=== PATIENT | male | born 1960 | race American Indian/Alaskan Native ===

== ENCOUNTER 2016-04-04 12:30 | Inpatient (IN) | payer OTHER ==
--- NOTE | 2016-04-04 12:56 | Emergency Department Report ---
Chief Complaint: Chest Pain Stated Complaint: CHEST PAIN/SOB/DIZZINESS Time Seen by Provider: 04/04/16 12:56 - HPI History of Present Illness: Patient here complaining of chest pain, shortness of breath and dizziness times one day. Patient reports diaphoretic with initial chest pain and pain is 10 out of 10 to the mid chest and feels tight. He has a history of diabetes and hypertension. Patient blood pressure is 86/57 and he said he took his blood pressure medication this morning. He said that his chest pain feels tight blood pressure. He said he has difficulty walking because he is out of breath. Reports that he has fever and chills yesterday. Has any coughing. - ROS Review of Systems: all Systems are negative unless stated in HPI above. - Exam Vital Signs: Vital Signs 04/04/16 12:43 Temperature 97.8 F Pulse Rate 55 L Respiratory 18 Rate Blood Pressure 86/57 O2 Sat by Pulse 97 Oximetry Physical Exam: General: This is a 55-year-old male well-nourished well-developed and appears to be in distress. CV: S1, S2. pulse of 55 and blood pressure is 86/57. Lungs: clear Auscultated bilaterally, no rhonchi wheezes or rales. MSE screening note: Focused history and physical exam performed. Due to findings the following was ordered:see mdm ED Medical Decision Making - Medical Decision Making Medical decision making: Patient seen by provider in triage area. Appropriate protocol activated and patient to main ED to be seen by physician. ED Disposition for MSE Condition: Stable
[2016-04-04 13:23] LABS: Basophils % (Auto) 0.2 % (0.0-1.8); Eosinophils % (Auto) 0.5 % (0.0-4.3); Hemoglobin 14.7 gm/dl (11.8-15.2); Mean Corpuscular HGB Conc 33 % (32-34); Mean Corpuscular Hemoglobin 29 pg (28-32); Mean Corpuscular Volume 89 fl (84-94); Platelet Count 183 K/mm3 (140-440); Red Blood Count 5.03 M/mm3 (3.65-5.03); Red Cell Distribution Width 14.3 % (13.2-15.2); White Blood Count 12.3 K/mm3 (4.5-11.0)
[2016-04-04] MEDS ORDERED: NACL 0.9% 1000 ML 1,000 ML IV ONE (13:27)
[2016-04-04] MEDS ORDERED: NACL 0.9% 1000 ML 2,000 ML IV ONE (13:27)
[2016-04-04] MEDS ORDERED: TORADOL IV ONE (13:27)
--- NOTE | 2016-04-04 13:38 | XRay Report ---
PA CHEST: PA view of the chest demonstrates a normal mediastinal and cardiac contour with clear lungs and normal bony and soft tissue structures. IMPRESSION: Normal PA chest.
[2016-04-04 13:44] LABS: BUN/Creatinine Ratio 12.66; Calcium 8.8 mg/dL (8.4-10.2); Chloride 104.4 mmol/L (98-107); Potassium 3.8 mmol/L (3.6-5.0)
[2016-04-04] MEDS ORDERED: MORPHINE IV ONE (13:53)
[2016-04-04] MEDS ORDERED: BABY ASPIRIN PO ONE (13:53)
[2016-04-04] MEDS ORDERED: ZOFRAN IV ONE (13:53)
--- NOTE | 2016-04-04 13:54 | Emergency Department Report ---
HPI - General Chief Complaint: Chest Pain Time Seen by Provider: 04/04/16 12:55 - HPI HPI: The patient is a 55-year-old male with a history of hypertension, who presents for evaluation of chest pain. The patient reports chest pain since 3 PM yesterday evening, on and off, worsened and constant since this morning, midsternal in location, pressure-like in quality, moderate to severe, and improved with deep inspirations. hemoptysis, unilateral leg swelling, recent immobilization, history of DVT or PE, recent cancer, history of familial coagulation disorder. ED Review of Systems ROS: Stated complaint: CHEST PAIN/SOB/DIZZINESS Other details as noted in HPI Constitutional: denies: fever ENT: denies: throat or neck pain Respiratory: denies: cough, shortness of breath Cardiovascular: reports chest pain Endocrine: denies unexplained weight loss or gain Gastrointestinal: denies: abdominal pain, nausea Genitourinary: denies: dysuria Musculoskeletal: denies: leg swelling Skin: denies: rash Neurological: denies: headache Hematological/Lymphatic: denies: easy bleeding or easy bruising Psych: denies sadness or hopelessness Physical Exam - Physical Exam Vital Signs: Vital Signs 04/04/16 04/04/16 12:43 13:02 Temperature 97.8 F Pulse Rate 55 L Respiratory 18 Rate Blood Pressure 86/57 94/50 O2 Sat by Pulse 97 100 Oximetry Physical Exam: General: well-nourished, well-developed, no acute distress Head: Normocephalic, atraumatic Eyes: normal sclera ENT: Mucous membranes are pink and moist Neck: trachea midline, neck supple, No neck stiffness, no cervical adenopathy Respiratory: Breath sounds equal bilaterally, no wheezing, rales, or rhonchi Cardio: S1 and S2 present, no murmurs, rubs, gallops, capillary refill is brisk Abdomen: Normoactive bowel sounds, soft abdomen, no rigidity, no guarding or rebound tenderness Chest WALL/Back: No tenderness to palpation of the chest wall, no CVA tenderness with percussion Musc: No pitting edema Skin: No rash Neuro: no facial drooping, normal speech Psych: Normal affect ED Course Vital Signs 04/04/16 04/04/16 12:43 13:02 Temperature 97.8 F Pulse Rate 55 L Respiratory 18 Rate Blood Pressure 86/57 94/50 O2 Sat by Pulse 97 100 Oximetry ED Medical Decision Making - Lab Data Result diagrams: 04/04/16 13:12 04/04/16 13:12 - Medical Decision Making The patient was seen and examined by myself. The patient is placed on a apprentice architect and continuous pulse ox. On initial evaluation, the patient was found to be in no distress. EKG was negative for findings suggestive of acute cardiac infarct. The patient is given an aspirin and a nitroglycerin tablet. Labs and imaging are obtained. Chest x-ray is negative for pneumothorax, focal consolidation, pulmonary vascular congestion, pleural effusion, or other obvious acute cardiopulmonary disease process. Lab results revealed elevated troponin level of 2.2, and elevated BNP of >300, and otherwise labs were non- revealing. The patient is given IV morphine for his pain. A heparin bolus and infusion are ordered for treatment of the patient's NSTEMI. CT angiogram scan of the chest is negative for pulmonary embolism. The patient was reevaluated and reported that their symptoms were improved. As the patient has NSTEMI, the patient will be admitted for close cardiopulmonary monitoring, continued heparin infusion, and potential cardiac cath by cardiology. The on- call hospitalist service was contacted. They agreed to admit the patient for further treatment and close monitoring. The ED admit order was placed. The patient was admitted in guarded condition. Critical care attestation.: If time is entered above; I have spent that time in minutes in the direct care of this critically ill patient, excluding procedure time. ED Disposition Clinical Impression: NSTEMI, initial episode of care, Acute chest pain, Dehydration Disposition: OP ADMITTED IP TO THIS HOSP Is pt being admited?: Yes Does the pt Need Aspirin: Yes Condition: Serious Instructions: Chest Pain (ED) Referrals: PRIMARY CARE, [Primary Care Provider] - 3-5 Days Time of Disposition: 13:43
[2016-04-04] MEDS ORDERED: HEPARIN 10,000 UNITS/10 ML IV ONE (13:55)
[2016-04-04] MEDS ORDERED: NACL ONE (13:59)
[2016-04-04] MEDS ORDERED: HEPARIN/ 0.45% NACL-25,000 UNIT/500 ML 500 ML IV SCH (14:00)
[2016-04-04 14:31] LABS: INR 1.01 (0.87-1.13)
[2016-04-04 14:32] LABS: Partial Thromboplastin Time 27.4 Sec. (24.2-36.6)
--- NOTE | 2016-04-04 15:15 | Cat Scan Report ---
CT angiography of the chest with 3-D reconstructed images. Findings: There is no evidence of pulmonary emboli. The Lungs are clear. There is no pleural fluid. The the mediastinum and hilar regions are normal. No axillary abnormalities are seen. The heart is mildly enlarged. Impression: No evidence of pulmonary emboli.
--- NOTE | 2016-04-04 15:17 | Admit Criteria Form ---
Admission Criteria Documentation: MYOCARDIAL INFARCTION Clinical Indications for Admission to Inpatient Care (Place 'X' for any and all applicable criteria): Admission is indicated for ANY ONE of the following (1)(2)(3)(4): [X ]I. Acute TX [ ]II. Contraindications and/or Inappropriate clinical situations for Observational Care in patients with Myocardial Infarction, when ANY ONE of the following is required: [ ]a) Patient with High risk of cardiac embolism (e.g, patients with previous cardiac embolism, LVEF < 40%, age >75 and patients with prosthetic valve) 18 [ ]b) Patient with Moderate risk including DM patient, CAD and patient aged 65-75 18 [ ]c) Patient with any change in cardiac biomarker especially troponin should be managed as high risk in an inpatient setting 19 [ ]d) Physician judgement irrespective of ECG and other diagnostic findings 20 [ ]III.General contraindications and/or Inappropriate clinical situations for Observational Care in patients with Myocardial Infarction, when ANY ONE of the following is required: [ ]a) Prediction of prolongation of LOS based on ANY ONE of the following may be considered as a contraindication for observational care 2, 3, 4, 5, 6, 7, 8, 9, 10, 11 [ ]i) Age > 65 yrs. [ ]ii) Patient arriving by ambulance [ ]iii) Patient with high acuity [ ]iv) Patient requiring vital sign monitoring [ ]v) Patient on IV medication [ ]b) Systolic blood pressures 180mmHg 3,12 [ ]c) Patient with altered mental status including delirium and other alteration of consciousness, (3) [ ]d) Patient whose discharge disposition will be to a care home home or rehabilitation home should not be managed in Emergency Department Observation Unit. CMS rule requires 3 days hospital stay before such placement. 3,13 [ ]e) Patient with failure to thrive due to broad array of etiologies 3 ,16,17 [ ]f) Inability to ambulate 3,14 Extended stay beyond goal length of stay may be needed for (1)(18)(20)(24)(25): [ ]a) Hemodynamic instability, persisting symptoms after intensive medical management, or recurring severe, prolonged symptoms [ ]b) Intravascular procedural complications such as acute vessel closure, stent thrombosis, stent malposition, or vessel dissection (26)(27)(28) [ ]c) Extravascular procedural complications such as retroperitoneal hematoma , pericardial effusion, or cardiac tamponade [ ]d) Entry site complications causing bleeding, hematoma or distal ischemia and requiring ongoing monitoring, surgical repair or surgical thrombectomy(29) [ ]e) Dangerous arrhythmia [ ]f) Complicated percutaneous coronary intervention (e.g., unsuccessful percutaneous coronary intervention or percutaneous coronary intervention of non- round [place] vessel) [ ]g) Urgent or emergent surgery for complications of TX (e.g., ventricular rupture, valvular insufficiency) [ ]h) Surgical revascularization via coronary artery bypass graft [ ]i) Heart failure (e.g., pulmonary edema) [ ]j) Unstable pulmonary comorbidities, including COPD or pneumonia (31) [ ]k) Acute renal failure The original [employer] content created by [employer] has been revised. The portions of the content which have been revised are identified through the use of italic text or in bold, and [employer] has neither reviewed nor approved the modified material. All other unmodified content is copyright [facility] Please see references footnoted in the original [employer] edition 2016 Admission Criteria Met: Yes
--- NOTE | 2016-04-04 15:20 | Consultation ---
History of Present Illness Consult date: 04/04/16 Requesting physician: LAUREN ROSE Consult reason: chest pain History of present illness: The patient is a 55 year old male who presented with complaints of substernal chest pain that began yesterday afternoon while he was having sex. He states the pain has been constant and describes it as "tightness" and "pressure." Associated with shortness of breath, dizziness and diaphoresis. No nausea or vomiting. First troponin is 2.280. Past History Past Medical History: diabetes, hypertension, hyperlipidemia Past Surgical History: No surgical history Social history: , smoking. denies: alcohol abuse, prescription drug abuse, IV drug use Family history: CAD (brother ) Medications and Allergies Allergies Allergy/AdvReac Type Severity Reaction Status Date / Time No Known Allergies Allergy Unverified 04/04/16 12:57 Active Meds: Active Medications Sodium Chloride (Nacl 0.9% 1000 Ml) 2,000 mls @ 999 mls/hr IV ONCE ONE Stop: 04/04/16 15:27 Heparin Sodium/Sodium Chloride (Heparin/ 0.45% Nacl-25,000 Unit/500 Ml) 500 mls @ 20 mls/hr IV TITRATE EDUARDO; 1,000 UNITS/HR PRN Reason: Protocol Review of Systems Constitutional: no fever, no chills Ears, nose, mouth and throat: no nasal congestion, no nasal discharge Cardiovascular: chest pain, shortness of breath Respiratory: no cough, no congestion, no wheezing Gastrointestinal: no abdominal pain, no nausea, no vomiting, no diarrhea Genitourinary Male: no dysuria, no hematuria Musculoskeletal: no neck stiffness, no neck pain, no myalgias Integumentary: no rash, no pruritis Neurological: no parathesias, no numbness, no tingling, no headaches Endocrine: no cold intolerance, no heat intolerance Hematologic/Lymphatic: no easy bruising, no easy bleeding Allergic/Immunologic: no urticaria, no wheezing Physical Examination Vital Signs Temp Pulse Resp BP Pulse Ox 97.8 F 55 L 18 86/57 97 04/04/16 12:43 04/04/16 12:43 04/04/16 12:43 04/04/16 12:43 04/04/16 12:43 General appearance: no acute distress, obese HEENT: Positive: PERRL, Normocephaly, Mucus Membranes Moist Neck: Positive: neck supple, trachea midline Cardiac: Positive: Reg Rate and Rhythm, S1/S2 Lungs: Positive: clear to auscultation Neuro: Positive: Grossly Intact Abdomen: Positive: Soft, Active Bowel Sounds. Negative: Tender Skin: Positive: Clear. Negative: Rash Extremities: Present: normal. Absent: edema Results 04/04/16 15:28 04/04/16 13:12 Coagulation 04/04/16 Range/Units Unknown PT 13.2 (12.2-14.9) Sec. INR 1.01 (0.87-1.13) APTT 27.4 (24.2-36.6) Sec. Lipids 04/04/16 Range/Units 13:12 Triglycerides 109 (2-149) mg/dL Cholesterol 144 (50-199) mg/dL HDL Cholesterol 40 (40-59) mg/dL Cholesterol/HDL Ratio 3.60 % CBC 04/04/16 Range/Units 13:12 WBC 12.3 H (4.5-11.0) K/mm3 RBC 5.03 (3.65-5.03) M/mm3 Hgb 14.7 (11.8-15.2) gm/dl Hct 45.0 (35.5-45.6) % Plt Count 183 (140-440) K/mm3 Lymph # 2.7 (1.2-5.4) K/mm3 [place] # 0.9 H (0.0-0.8) K/mm3 Eos # 0.1 (0.0-0.4) K/mm3 Baso # 0.0 (0.0-0.1) K/mm3 Comprehensive Metabolic Panel 04/04/16 Range/Units 13:12 Sodium 142 (137-145) mmol/L Potassium 3.8 (3.6-5.0) mmol/L Chloride 104.4 (98-107) mmol/L Carbon Dioxide 23 (22-30) mmol/L BUN 19 (9-20) mg/dL Creatinine 1.5 (0.8-1.5) mg/dL Glucose 105 H (75-100) mg/dL Calcium 8.8 (8.4-10.2) mg/dL - Imaging and Cardiology Echo: pending EKG: image reviewed EKG interpretations - Telemetry EKG Rhythm: Sinus Rhythm - EKG Sinus rhythms and dysrhythmias: sinus bradycardia Chamber hypertrophy or enlargement: left ventricular hypertro Assessment and Plan Given persistent chest pain, will proceed with left heart cath this evening. Initiate aggrastat gtt. Obtain echocardiogram. - Patient Problems (1) NSTEMI (non-ST elevated myocardial infarction) Current Visit: Yes Status: Acute (2) Bradycardia Current Visit: Yes Status: Acute (3) Hypertension Current Visit: Yes Status: Chronic (4) Diabetes Current Visit: Yes Status: Chronic (5) Tobacco abuse Current Visit: Yes Status: Chronic
[2016-04-04 15:43] LABS: Hematocrit 42.5 % (35.5-45.6); Hemoglobin 13.8 gm/dl (11.8-15.2)
--- NOTE | 2016-04-04 16:01 | Event Note ---
Date: 04/04/16 See H/p in reports NSTEMI
[2016-04-04] MEDS ORDERED: ALUM-MAG HYDROX-SIMETH 200-200-20MG/5ML PO PRN (16:04)
[2016-04-04] MEDS ORDERED: MILK OF MAGNESIA PO PRN ×2 (16:04)
[2016-04-04] MEDS ORDERED: DULCOLAX PR PRN ×2 (16:04)
[2016-04-04] MEDS ORDERED: AMBIEN PO PRN (16:04)
[2016-04-04] MEDS ORDERED: XANAX PO PRN (16:04)
[2016-04-04] MEDS ORDERED: TYLENOL PO PRN ×2 (16:04→20:05)
[2016-04-04] MEDS ORDERED: PERCOCET 5/325 PO PRN ×2 (16:04)
[2016-04-04] MEDS ORDERED: ZOFRAN IV PRN (16:04)
[2016-04-04 16:33] LABS: Creatine Kinase MB 125.6 ng/mL (0.0-4.0)
[2016-04-04] MEDS ORDERED: AGGRASTAT (BOLUS) IV ONE (16:53)
[2016-04-04] MEDS ORDERED: NACL 0.9% 1000 ML 1,000 ML ONE ×2 (17:37→18:23)
[2016-04-04] MEDS: AGGRASTAT DRIP IV SCH (18:12)
[2016-04-04] MEDS ORDERED: CALAN ONE (18:15)
[2016-04-04] MEDS ORDERED: HEPARIN/NS 5000 UNIT/500ML(CATH LAB) 1,000 ML IR ONE (18:15)
[2016-04-04] MEDS ORDERED: NITROGLYCERIN SYRINGE 0 ML ONE (18:15)
[2016-04-04] MEDS ORDERED: HEPARIN 10,000 UNITS/10 ML ONE (18:15)
[2016-04-04] MEDS ORDERED: XYLOCAINE 2% INFILTRATI ONE (18:15)
[2016-04-04] MEDS ORDERED: VERSED ONE (18:16)
[2016-04-04] MEDS ORDERED: SUBLIMAZE ONE (18:17)
[2016-04-04] MEDS ORDERED: HEPARIN/NS 5000 UNIT/500ML(CATH LAB) 500 ML IR ONE (18:53)
[2016-04-04] MEDS ORDERED: NACL 0.9% 500 ML 500 ML IV SCH (19:00)
[2016-04-04] MEDS ORDERED: INTROPIN DRIP 800 MG/D5W 250 ML 250 ML IV ONE (19:35)
[2016-04-04] MEDS ORDERED: EFFIENT PO ONE (19:44)
[2016-04-04] MEDS ORDERED: ALUM-MAG HYDROX-SIMETH 200-200-20MG/5ML ONE (19:52)
[2016-04-04] MEDS ORDERED: NORCO 5/325 PO PRN (20:05)
[2016-04-04] MEDS ORDERED: INTROPIN DRIP 800 MG/D5W 250 ML 250 ML IV SCH (21:00)
[2016-04-04] MEDS: DILAUDID IV PRN (21:26)
[2016-04-04 23:01] LABS: Creatine Kinase MB 141.9 ng/mL (0.0-4.0)
[2016-04-04] MEDS ORDERED: NON-FORMULARY (Metformin Hcl [Glucophage] 1,000 MG) PO SCH (23:30)
--- NOTE | 2016-04-05 02:09 | Cardiac Catherization Report ---
CARDIAC CATHETERIZATION AND CORONARY INTERVENTION CLINICAL INFORMATION: The patient a 55-year-old -[place] gentleman with history of hypertension of longstanding duration. He had chest pains for the last 24 hours, presented to the Emergency Room with increasing chest pain and was noted to have elevated troponin, continues to have persistent chest pain with a low blood pressure and low heart rate. Systolic blood pressure around 90-100 mmHg systolic blood pressure with persistent chest pain. The patient was noted to have elevated total CK and MB consistent with acute myocardial injury. However, EKG did not show any ST elevations. Considering persistent chest, even though the patient is having pain for more than 24 hours, it was decided to take him to the catheterization laboratory on an urgent basis for further treatment. The patient was started on IV Aggrastat in addition to aspirin. The patient's blood pressure is low 80-100 systolic. Also, heart rate in 60s-70s, sometimes in junctional rhythm and sinus bradycardia. No previous cardiac history. DESCRIPTION OF PROCEDURE: The patient was brought to the catheterization laboratory and right groin and right wrist area thoroughly cleansed with Betadine solution and sterilely drapes were applied. Local anesthesia was achieved using 2% Xylocaine. The patient was sedated with IV Versed. The patient received 8 mg of morphine in the Emergency Room. Subsequently, right radial arterial puncture was made using 21-gauge arterial puncture needle. Subsequently, a 6-Qatari sheath was introduced. Using multipurpose catheter, coronary angiography was performed. Angiograms of the left coronary artery and right coronary artery were obtained along with left ventriculogram done in MARJORIE and CRUZ projection using hand injection. Subsequently, procedure was converted into interventional procedure. Following findings were noted. HEMODYNAMICS: 1. Opening aortic pressure 116/74, left ventricular pressure 118/30. No gradient across the aortic valve. Estimated ejection fraction 50%. Left ventricular size is upper limits of normal with contractility lower limits of normal. No regional wall emotion abnormalities were noted. Mitral regurgitation could not be evaluated because of limited amount of dye. 2. Right coronary artery, dominant vessel, is 100% occluded in the distal part. PDA is arising proximal to this occlusion somewhat superiorly. PDA itself without significant disease. However, distal RCA and LV branch are not visualized, that is 100% occluded distal RCA. Proximal and mid RCA showed only mild disease. 3. Left coronary artery. Left main without significant disease. The LAD and its branches are without significant disease. Circumflex artery showed 40-50% smooth lesion in the distal segment; however, marginal branches without significant disease. Collaterals none. FINAL IMPRESSION: A 100% occluded distal RCA which is a dominant vessel is the culprit vessel. Overall, left ventricular function is lower limits of normal. Left coronary system showed only nonobstructive disease. At this time, plan is to proceed with intervention of the distal RCA. CORONARY INTERVENTION OF THE DISTAL RCA: The patient had indwelling 6-Qatari sheath in the right wrist area. The patient was given extra dose of heparin 5000 units. A 6-Qatari JR4 guiding catheter was advanced and engaged the right coronary artery. An 0.014 inch [place] XT guidewire was advanced in distal RCA without much difficulty. Subsequently, 100% occluded distal RCA was noted and 2.5 x 20 mm Trek balloon was advanced to the distal RCA and inflated to 10 atmospheres for 1 minute x 2. However, still there is quite a bit of clot and KATHARINE 1 flow was noted. Subsequently, 6-Qatari [place] catheter was used to extract the thrombus in the RCA, quite a large amount of thrombus was extracted and KATHARINE 3 flow was noted in the RCA to the distal LV branches. However, there was residual long stenosis. A 2.5 x 30 mm Resolute Integrity stent was inserted, inflated to normal pressure of 9 atmospheres with good result. No proximal or distal dissection noted. KATHARINE 3 flow was noted. LV branches are filling well. The patient was chest pain free. At the end of the procedure, the patient's systolic blood pressure was still 80-90 mmHg. Also, bradycardic. Considering the above, the patient was started on dopamine with good response with systolic blood pressure up to 140 mmHg. The patient remained in sinus rhythm. The patient was on Aggrastat. We will continue the same. Received 60 mg of prasugrel and at this time, beta blockers are on hold because of the low blood pressure and bradycardia, and also because of low blood pressure, YAMILKA inhibitors are not given. We will resume his antihypertensive medications which probably would include beta blockers and YAMILKA inhibitor in the morning once he is hemodynamically stabilized. At this time, the patient's blood pressure is low with bradycardia. The patient is chest pain free. Rhythm has been stable even though he was in transient junctional rhythm during the procedure. Findings were explained to the patient. FINAL IMPRESSION: Uncomplicated drug-eluting stent placement after the balloon angioplasty and catheter thrombectomy of the distal RCA with good result. Lesion was reduced from 100% to 0% and KATHARINE 3 flow was noted post-procedure and preprocedure. KATHARINE flow was zero. No complications of dissection or perforation noted. Left coronary system showed only 40% smooth lesion in the distal circumflex. Otherwise, rest of the left circumflex without significant disease. Considering the above, the patient will be continued on medical therapy. The patient's end diastolic pressure was elevated up to 13 mmHg. JOB# [id number] SHIRA/LUIS
[2016-04-05 04:34] LABS: Basophils % (Auto) 0.4 % (0.0-1.8); Eosinophils % (Auto) 0.2 % (0.0-4.3); Hematocrit 42.1 % (35.5-45.6); Hemoglobin 14.2 gm/dl (11.8-15.2); Mean Corpuscular HGB Conc 34 % (32-34); Mean Corpuscular Hemoglobin 30 pg (28-32); Mean Corpuscular Volume 90 fl (84-94); Platelet Count 167 K/mm3 (140-440); Red Blood Count 4.68 M/mm3 (3.65-5.03); Red Cell Distribution Width 13.9 % (13.2-15.2); White Blood Count 10.1 K/mm3 (4.5-11.0)
[2016-04-05 04:55] LABS: Creatine Kinase MB 98.7 ng/mL (0.0-4.0)
[2016-04-05 04:56] LABS: Alanine Aminotransferase 38 units/L (7-56); Albumin 3.6 g/dL (3.9-5); Albumin/Globulin Ratio 1.2 %; Alkaline Phosphatase 47 units/L (35-129); BUN/Creatinine Ratio 12.72; Bilirubin,Total 0.8 mg/dL (0.1-1.2); Blood Urea Nitrogen 14 mg/dL (9-20); Calcium 8.1 mg/dL (8.4-10.2); Carbon Dioxide 20 mmol/L (22-30); Chloride 103.2 mmol/L (98-107); Creatine Kinase 1525 units/L (55-170); Glucose 112 mg/dL (75-100); Potassium 3.8 mmol/L (3.6-5.0); Sodium 138 mmol/L (137-145); Total Protein 6.7 g/dL (6.3-8.2)
[2016-04-05 04:58] LABS: Anion Gap 19 mmol/L
[2016-04-05] MEDS: AGGRASTAT DRIP IV SCH (05:13)
--- NOTE | 2016-04-05 07:32 | History and Physical Report ---
CHIEF COMPLAINT: Left-sided chest pain. HISTORY OF PRESENT ILLNESS: A 55-year-old male comes in with substernal chest pain and left-sided chest pain while he was having apparently sex. He says the pain has been constant and describes it as a tightness and pressure associated with shortness of breath, dizziness and diaphoresis. No palpitations. No vomiting. PAST MEDICAL HISTORY: Significant for diabetes, hypertension, and hyperlipidemia. No surgical history. CURRENT MEDICATIONS: Metformin 1000 mg twice a day, valsartan 160 mg and amlodipine 10 mg daily. ALLERGIES: None. PAST SURGICAL HISTORY: No surgical history. SOCIAL HISTORY: . Smokes about half pack a day. No alcohol abuse, no prescription drug abuse. FAMILY HISTORY: Coronary artery disease. REVIEW OF SYSTEMS: Significant for substernal chest pain and left-sided chest pain. No radiation. Otherwise, review of systems is essentially negative. PHYSICAL EXAMINATION: GENERAL: Middle aged male, cooperative during examination and in no distress. Well developed, well nourished. VITAL SIGNS: Blood pressure is 97.8, pulse is 55, respirations 18, blood pressure 86/57. HEENT: Unremarkable. Pupils are equal and reactive. NECK: Supple, no lymphadenopathy, no thyromegaly. LUNGS: Clear to auscultation and percussion. Good air entry. CARDIOVASCULAR: S1, S2 heard. No gallop, no murmur, no rub. Apical impulse in left fifth intercostal space and midclavicular line. ABDOMEN: Soft and benign. No hepatosplenomegaly. No guarding, no rigidity. Hernial orifices are normal. EXTREMITIES: Good pedal pulses. No pedal edema. CENTRAL NERVOUS SYSTEM: Alert and oriented x 4, nonfocal exam. SKIN: Normal. LABORATORY DATA: White count is 12,300, H and H are 13.8 and 42.5, and platelet count is 161,000. Protime is 13.2, INR is 1.01 and PTT is 27.4. Heparin is less than 0.010. Sodium is 142, potassium is 3.8, chloride is 104, BUN and creatinine are 19 and 1.5, glucose is 105. A1c is 6.4. Total creatine kinase is 1314 and CK-MB is 125.6. Relative index is 9.5. Troponin T is 2.150. Second CK is 1648 and CK-MB is 141 and CK-MB relative index is 8.6. Troponin is 8.1. Lipid profile was normal. EKG shows sinus bradycardia, left ventricular hypertrophy, no elevated ST-T waves. ASSESSMENT AND PLAN: 1. Non-ST elevated myocardial infarction. The patient will be taken for left heart catheterization and stent placement. The patient was started on IV heparin. 2. Hypertension. The patient is restarted on amlodipine 10 mg daily and valsartan 160 mg daily. 3. Type 2 diabetes. Continue metformin 1000 mg twice a day and coverage. 4. Nicotine abuse, Nicoderm patch ordered. 5. Sinus bradycardia, observe for the time being. 6. Deep venous thrombosis prophylaxis with Lovenox 40 mg subcutaneous daily. [facility]# [id number] EFRAIN/LUIS LAO
[2016-04-05] MEDS ORDERED: GLUCOPHAGE PO SCH (08:00)
--- NOTE | 2016-04-05 08:27 | Progress Note ---
Assessment and Plan Will hold off on initiation of beta saurabh and ACEI due to hypotension. Patient encouraged to ambulate. Likely d/c home in am. Follow up in the office with Dr. Kaur next week. - Patient Problems (1) NSTEMI (non-ST elevated myocardial infarction) Current Visit: Yes Status: Acute (2) S/P PTCA (percutaneous transluminal coronary angioplasty) Current Visit: Yes Status: Acute (3) CAD (coronary artery disease) Current Visit: Yes Status: Acute (4) Hypertension Current Visit: Yes Status: Chronic (5) Diabetes Current Visit: Yes Status: Chronic (6) Tobacco abuse Current Visit: Yes Status: Chronic Subjective Date of service: 04/05/16 Principal diagnosis: NSTEMI Interval history: The patient is resting in bed. No chest pain. Sinus rhythm on the monitor. Objective Last Vital Signs Temp 99.0 F 04/05/16 07:46 Pulse 91 H 04/04/16 22:00 Resp 20 04/05/16 04:00 BP 86/54 04/04/16 17:30 Pulse Ox 99 04/05/16 09:07 - Physical Examination General: No Apparent Distress HEENT: Positive: PERRL, Normocephaly, Mucus Membranes Moist Neck: Positive: neck supple, trachea midline Cardiac: Positive: Reg Rate and Rhythm, S1/S2 Lungs: Positive: clear to auscultation Neuro: Positive: Grossly Intact Abdomen: Positive: Soft, Active Bowel Sounds. Negative: Tender Skin: Positive: Clear. Negative: Rash Incision: Cardiac Cath Site (right radial-no hematoma) Extremities: Present: normal. Absent: edema - Labs and Meds Cardiac Enzymes 04/04/16 04/05/16 Range/Units 22:06 04:21 AST 175 H (5-40) units/L CK-MB (CK-2) 141.9 H 98.7 H (0.0-4.0) ng/mL Coagulation 04/04/16 Range/Units Unknown PT 13.2 (12.2-14.9) Sec. INR 1.01 (0.87-1.13) APTT 27.4 (24.2-36.6) Sec. CBC 04/05/16 Range/Units 04:21 WBC 10.1 (4.5-11.0) K/mm3 RBC 4.68 (3.65-5.03) M/mm3 Hgb 14.2 (11.8-15.2) gm/dl Hct 42.1 (35.5-45.6) % Plt Count 167 (140-440) K/mm3 Lymph # 2.2 (1.2-5.4) K/mm3 [facility] # 1.1 H (0.0-0.8) K/mm3 Eos # 0.0 (0.0-0.4) K/mm3 Baso # 0.0 (0.0-0.1) K/mm3 Comprehensive Metabolic Panel 04/05/16 Range/Units 04:21 Sodium 138 (137-145) mmol/L Potassium 3.8 (3.6-5.0) mmol/L Chloride 103.2 (98-107) mmol/L Carbon Dioxide 20 L (22-30) mmol/L BUN 14 (9-20) mg/dL Creatinine 1.1 (0.8-1.5) mg/dL Glucose 112 H (75-100) mg/dL Calcium 8.1 L (8.4-10.2) mg/dL AST 175 H (5-40) units/L ALT 38 (7-56) units/L Alkaline Phosphatase 47 (35-129) units/L Total Protein 6.7 (6.3-8.2) g/dL Albumin 3.6 L (3.9-5) g/dL - Imaging and Cardiology EKG: image reviewed Echo: pending - Telemetry EKG Rhythm: Sinus Rhythm - EKG Sinus rhythms and dysrhythmias: sinus bradycardia Chamber hypertrophy or enlargement: left ventricular hypertro
--- NOTE | 2016-04-05 09:22 | XRay Report ---
PORTABLE CHEST: INDICATION: Post PCI. COMPARISON: Yesterday. FINDINGS: Portable, frontal chest radiograph again suggests mild cardiomegaly and slight aortic knob calcifications. Minimal fluid or thickening along the right minor fissure without significant pleural effusions or overt CHF. EKG leads. Stable bones. CONCLUSION: No significant interval change with mild cardiomegaly. Please correlate. Thank you for the opportunity to participate in this patient's care.
[2016-04-05] MEDS ORDERED: NORVASC PO SCH (10:00)
[2016-04-05] MEDS ORDERED: AMLODIPINE PO SCH (10:00)
[2016-04-05] MEDS ORDERED: VALSARTAN PO SCH (10:00)
[2016-04-05] MEDS ORDERED: DIOVAN PO SCH (10:00)
[2016-04-05] MEDS ORDERED: NON-FORMULARY (Sitagliptin Phosphate [Januvia] 100 MG) PO SCH (10:00)
[2016-04-05] MEDS ORDERED: ASPIRIN PO SCH (10:00)
[2016-04-05] MEDS: HABITROL TD SCH (10:05)
[2016-04-05] MEDS: TRADJENTA PO SCH (10:05)
[2016-04-05] MEDS: ECOTRIN PO SCH (10:05)
--- NOTE | 2016-04-05 10:46 | Echocardiography Report ---
Transthoracic Echocardiogram Indication: Nstemi BP: 94/50 Conclusions *Global left ventricular systolic function is at the lower limits of normal. *The estimated ejection fraction is 45-50%. *The basal inferolateral, and mid inferolateral wall segments are hypokinetic. *There is no evidence of aortic regurgitation. *There is mild mitral regurgitation. *There is mild tricuspid regurgitation. *The right ventricular systolic pressure is calculated at 27 mmHg. *There is no evidence of pulmonic regurgitation. *The right ventricular global systolic function is normal. Findings Left Ventricle: The left ventricular chamber size is normal. Moderate concentric left ventricular hypertrophy is observed. Global left ventricular systolic function is at the lower limits of normal. The estimated ejection fraction is 45-50%. Normal left ventricular diastolic filling is observed. The basal inferolateral, and mid inferolateral wall segments are hypokinetic. Left Atrium: The left atrium is normal in size with no visual thrombus identified. Right Ventricle: The right ventricular cavity size is normal. The right ventricular global systolic function is normal. Right Atrium: The right atrium appears normal. The interatrial septum appears normal. Aortic Valve: The aortic valve leaflets are mildly thickened. There is no evidence of aortic regurgitation. There is no evidence of aortic stenosis. Mitral Valve: The mitral valve leaflets appear normal. There is mild mitral regurgitation. There is no evidence of mitral stenosis. Tricuspid Valve: The tricuspid valve leaflets are normal. There is mild tricuspid regurgitation. The right ventricular systolic pressure is calculated at 27 mmHg. There is no tricuspid stenosis. Pulmonic Valve: The pulmonic valve appears normal. There is no evidence of pulmonic regurgitation. There is no pulmonic stenosis. Pericardium: There is no pericardial effusion. Aorta: There is no dilatation of the ascending aorta. Venous: The inferior vena cava appears normal in size. There is no change in the dimension of the inferior vena cava with respiration consistent with markedly increased right atrial pressure. Measurements Chambers MM Name Value Normal Range Ao root diameter (MM) 3 cm (2 - 3.7) LA dimension (AP) MM 4.7 cm (1.9 - 4) LA:Ao ratio (MM) 1.57 ratio - AV cusp separation (MM) 1.4 cm (1.5 - 2.6) Chambers 2D Name Value Normal Range RVIDd (AP) 2D 2.86 cm (0.9 - 2.6) IVSd (2D) 1.57 cm (0.6 - 1.1) LVPWd (2D) 1.6 cm (0.6 - 1.1) IVS:LVPW ratio (2D) 0.98 ratio - LVIDd (2D) 5.11 cm (3.7 - 5.6) LVIDs (2D) 3.96 cm (2 - 3.8) LV FS (Teichholz) (2D) 22.5 % - LV FS (cube) (2D) 22.5 % - EF Teichholz (2D) 44.9 % - LA dimension (AP) 2D 4.6 cm (1.9 - 4) Volumes/Mass Name Value Normal Range LA ESV SP 4CH (MOD) 72 ml - LA ESV SP 2CH (MOD) 56 ml - LA ESV BP (MOD) 71 ml - LA ESV BP (MOD) index 29.1 ml/m2 - LV EDV SP 4CH (MOD) 87 ml - LV ESV SP 4CH (MOD) 27 ml - EF SP 4CH (MOD) 69 % - LV EDV SP 2CH (MOD) 50 ml - LV ESV SP 2CH (MOD) 52 ml - EF SP 2CH (MOD) 4 % - LV EDV BP 68 ml - LV ESV BP 39 ml - BP EF (MOD) 43 % - Diastolic/Systolic Function Name Value Normal Range MV E-wave Vmax 0.79 m/sec - MV deceleration time 127 msec - MV A-wave Vmax 0.48 m/sec - MV E:A ratio 1.6 ratio - LV septal e' Vmax 0.1 m/sec - LV lateral e' Vmax 0.08 m/sec - LV E:e' septal ratio 8.1 ratio - LV E:e' lateral ratio 9.6 ratio - Aortic Valve Name Value Normal Range AV VTI 25.6 cm - AV mean gradient 4 mmHg - LVOT diameter 2 cm - LVOT VTI 23.4 cm - LVOT mean gradient 4 mmHg - SV LVOT 73 ml - LILLY (continuity VTI) 2.87 cm2 - Mitral Valve Name Value Normal Range MV PHT 51 msec - MR Vmax 3.06 m/sec - MVA (PHT) 4.31 cm2 - Tricuspid Valve Name Value Normal Range TR Vmax 2.18 m/sec - TR peak gradient 19 mmHg - RAP 8 mmHg - RVSP 27 mmHg - Pulmonic Valve/Qp:Qs Name Value Normal Range PV Vmax 0.64 m/sec - PV peak gradient 2 mmHg - PV acceleration time 134 msec - [place] BAS Not Seen BA Not Seen BAL Not Seen SARITHA Hypokinetic BI Not Seen BIS Not Seen MAS Not Seen MA Not Seen MAL Not Seen MIL Hypokinetic ME Not Seen MIS Not Seen Not Seen AA Not Seen AL Not Seen AI Not Seen APEX Not Seen
[2016-04-05] MEDS ORDERED: MORPHINE IV ONE (10:57)
[2016-04-05] MEDS ORDERED: MORPHINE ONE (10:59)
[2016-04-05] MEDS: NOVOLOG SUB-Q SCH ×3 (11:00→21:52)
[2016-04-05] MEDS ORDERED: MORPHINE IV PRN (11:43)
--- NOTE | 2016-04-05 12:35 | Consultation ---
History of Present Illness - Reason for Consult Consult date: 04/05/16 NSTEMI Requesting physician: MELECIO CASTELAN - History of Present Illness 55 y/o male with NSTEMI, found to have a 100% occluded RCA. Status post PCI yesterday evening now on aggrastat. [facility] is following. Past History Past Medical History: diabetes, hypertension, hyperlipidemia Past Surgical History: No surgical history Social history: , smoking. denies: alcohol abuse, prescription drug abuse, IV drug use Family history: CAD (brother ) Medications and Allergies Allergies Allergy/AdvReac Type Severity Reaction Status Date / Time No Known Allergies Allergy Unverified 04/04/16 12:57 Home Medications Medication Instructions Recorded Confirmed Last Taken Type Metformin HCl [Glucophage] 1,000 mg PO BID 04/04/16 04/04/16 Unknown History Sitagliptin Phosphate [Januvia] 0 mg PO DAILY 04/04/16 04/04/16 Unknown History amLODIPine/VALSARTAN [[place] 1 each PO DAILY 04/04/16 04/04/16 Unknown History 10-320 mg Tablet] Active Meds: Active Medications Acetaminophen (Tylenol) 650 mg PO Q4H PRN PRN Reason: Pain MILD(1-3)/Fever >100.5/NEFF Acetaminophen/Hydrocodone Bitart ([place] 5/325) 1 each PO Q6H PRN PRN Reason: Pain, Moderate (4-6) Al Hydrox/Mg Hydrox/Simethicone (Alum-Mag Hydrox-Simeth [id number]/5ml) 30 ml PO Q4H PRN PRN Reason: Indigestion Alprazolam (Xanax) 0.25 mg PO Q8H PRN PRN Reason: Anxiety Aspirin (Ecotrin) 325 mg PO QDAY [facility] Last Admin: 04/05/16 10:05 Dose: 325 mg Atorvastatin Calcium (Lipitor) 80 mg PO QHS [facility] Last Admin: 04/04/16 21:26 Dose: 80 mg Bisacodyl (Dulcolax) 10 mg CA QDAY PRN PRN Reason: Constipation unrelieved by MOM Hydromorphone HCl (Dilaudid) 0.5 mg IV Q3H PRN PRN Reason: Pain , Severe (7-10) Last Admin: 04/04/16 21:26 Dose: 0.5 mg Dopamine HCl/Dextrose (Intropin Drip 800 Mg/D5w 250 Ml) 250 mls @ 4.676 mls/hr IV TITR EDUARDO; 2 MCG/KG/MIN PRN Reason: Protocol Insulin Aspart (Novolog) 0 units SUB-Q ACHS EDUARDO PRN Reason: Protocol Linagliptin (Tradjenta) 5 mg PO QDAY [facility] Last Admin: 04/05/16 10:05 Dose: 5 mg Magnesium Hydroxide (Milk Of Magnesia) 30 ml PO Q4H PRN PRN Reason: Constipation Morphine Sulfate (Morphine) 2 mg IV Q4H PRN PRN Reason: Pain, Moderate (4-6) Nicotine (Habitrol) 21 mg TD QDAY [facility] Last Admin: 04/05/16 10:05 Dose: 21 mg Ondansetron HCl (Zofran) 4 mg IV Q8H PRN PRN Reason: N/V unrelieved by Yoanna Last Admin: 04/05/16 05:25 Dose: 4 mg Prasugrel (Effient) 10 mg PO QDAY EDUARDO Zolpidem Tartrate (Ambien) 5 mg PO QHS PRN PRN Reason: Insomnia Last Admin: 04/04/16 21:26 Dose: 5 mg Review of Systems All systems: negative Exam - Constitutional Vitals: Temp Pulse Resp BP Pulse Ox 98.6 F 91 H 18 86/54 99 04/05/16 11:57 04/04/16 22:00 04/05/16 11:10 04/04/16 17:30 04/05/16 09:07 General appearance: Present: no acute distress, obese - EENT Eyes: Present: PERRL, EOM intact ENT: hearing intact, clear oral mucosa, dentition normal - Neck Neck: Present: supple, other (large in circumference) - Respiratory Respiratory: bilateral: CTA - Cardiovascular Rhythm: regular Heart Sounds: Present: S1 & S2 Results - Labs CBC & Chem 7: 04/05/16 04:21 04/05/16 04:21 Labs: Abnormal lab results 04/04/16 04/04/16 04/05/16 Range/Units 22:03 22:06 04:21 [place] % (Auto) 11.2 H (0.0-7.3) % [place] # 1.1 H (0.0-0.8) K/mm3 Heparin Anti-Xa Level < 0.10 L (0.3-0.7) U.I./ml Carbon Dioxide (22-30) mmol/L Glucose (75-100) mg/dL POC Glucose (70-105) Calcium (8.4-10.2) mg/dL AST (5-40) units/L Total Creatine Kinase 1648 H (55-170) units/L CK-MB (CK-2) 141.9 H (0.0-4.0) ng/mL CK-MB (CK-2) Rel Index 8.6 H (0-4) Troponin T 8.100 H* D (0.00-0.029) ng/mL Albumin (3.9-5) g/dL 04/05/16 04/05/16 Range/Units 04:21 07:37 [place] % (Auto) (0.0-7.3) % [place] # (0.0-0.8) K/mm3 Heparin Anti-Xa Level (0.3-0.7) U.I./ml Carbon Dioxide 20 L (22-30) mmol/L Glucose 112 H (75-100) mg/dL POC Glucose 172 H (70-105) Calcium 8.1 L (8.4-10.2) mg/dL AST 175 H (5-40) units/L Total Creatine Kinase 1525 H (55-170) units/L CK-MB (CK-2) 98.7 H (0.0-4.0) ng/mL CK-MB (CK-2) Rel Index 6.4 H (0-4) Troponin T 5.690 H* D (0.00-0.029) ng/mL Albumin 3.6 L (3.9-5) g/dL - Imaging and Cardiology Chest x-ray: image reviewed (cardiomegaly, with clear lung villareal) Assessment and Plan 55 y/o male admitted with NSTEMI, found to have 100% occluded RCA status post PCI 1. Continue cardiovascular treatment as per cards 2. Weight loss 3. SMoking cessation 4. BP control 5. Epigastric pain is likely GERD, will treat with magic mouth wash which has lidocaine in it. Stable for transfer to floor
[2016-04-05] MEDS ORDERED: MAGIC MOUTHWASH PO ONE (13:00)
--- NOTE | 2016-04-05 14:29 | Progress Note ---
Assessment and Plan Assessment and plan: Patient is 55 yo man with presented with cp and found to have the followin. NSTEMI s/p LESLY RCA 2. Hypotension related to above, wean off dopamine 3. DM; add ssi 4. DLP: statin transfer out of the icu History Interval history: Patient seen and examined. Follow up on current diagnosis. Overnight uneventful. No cp, sob, n/v or severe headaches. Imaging, old records, testing, labs, nursing notes reviewed. Hospitalist Physical - Physical exam Narrative exam: GEN: WDWN, NAD, AWAKE, ALERT, ORIENTATED 3 HEENT: NCAT, PERRL, EOMI, OP CLEAR NECK: SUPPLE, NO THYROMEGALY, NO JVD, NO LAD CVS: RRR, NORMAL S1S2 LUNGS/CHEST: CTA B, NORMAL CHEST EXPANSION B, GOOD AIR ENTRY B ABD: SOFT NTND, GBS, NO REBOUND OR GUARDING EXT/SKIN: NO SIGNIFICANT EDEMA OR RASH MSK: FROM X 4 EXTREMITIES NEURO: CN 2-12 GROSSLY INTACT, NO FOCAL DEFICITS PSY: CALM - Constitutional Vitals: Temp Pulse Resp BP Pulse Ox 98.6 F 91 H 18 86/54 99 04/05/16 11:57 04/04/16 22:00 04/05/16 11:10 04/04/16 17:30 04/05/16 09:07 General appearance: Present: no acute distress, obese Results - Labs CBC & Chem 7: 04/05/16 04:21 04/05/16 04:21 Labs: Laboratory Last Values WBC 10.1 K/mm3 (4.5-11.0) 04/05/16 04:21 RBC 4.68 M/mm3 (3.65-5.03) 04/05/16 04:21 Hgb 14.2 gm/dl (11.8-15.2) 04/05/16 04:21 Hct 42.1 % (35.5-45.6) 04/05/16 04:21 MCV 90 fl (84-94) 04/05/16 04:21 MCH 30 pg (28-32) 04/05/16 04:21 MCHC 34 % (32-34) 04/05/16 04:21 RDW 13.9 % (13.2-15.2) 04/05/16 04:21 Plt Count 167 K/mm3 (140-440) 04/05/16 04:21 Lymph % (Auto) 22.0 % (13.4-35.0) 04/05/16 04:21 [facility] % (Auto) 11.2 % (0.0-7.3) H 04/05/16 04:21 Eos % (Auto) 0.2 % (0.0-4.3) 04/05/16 04:21 Baso % (Auto) 0.4 % (0.0-1.8) 04/05/16 04:21 Lymph # 2.2 K/mm3 (1.2-5.4) 04/05/16 04:21 [facility] # 1.1 K/mm3 (0.0-0.8) H 04/05/16 04:21 Eos # 0.0 K/mm3 (0.0-0.4) 04/05/16 04:21 Baso # 0.0 K/mm3 (0.0-0.1) 04/05/16 04:21 Seg Neutrophils % 66.2 % (40.0-70.0) 04/05/16 04:21 Seg Neutrophils # 6.7 K/mm3 (1.8-7.7) 04/05/16 04:21 PT 13.2 Sec. (12.2-14.9) 04/04/16 Unknown INR 1.01 (0.87-1.13) 04/04/16 Unknown APTT 27.4 Sec. (24.2-36.6) 04/04/16 Unknown Heparin Anti-Xa Level < 0.10 U.I./ml (0.3-0.7) L 04/04/16 22:03 Sodium 138 mmol/L (137-145) 04/05/16 04:21 Potassium 3.8 mmol/L (3.6-5.0) 04/05/16 04:21 Chloride 103.2 mmol/L (98-107) 04/05/16 04:21 Carbon Dioxide 20 mmol/L (22-30) L 04/05/16 04:21 Anion Gap 19 mmol/L 04/05/16 04:21 BUN 14 mg/dL (9-20) 04/05/16 04:21 Creatinine 1.1 mg/dL (0.8-1.5) 04/05/16 04:21 Estimated GFR > 60 ml/min 04/05/16 04:21 BUN/Creatinine Ratio 12.72 % 04/05/16 04:21 Glucose 112 mg/dL (75-100) H 04/05/16 04:21 POC Glucose 85 (70-105) 04/05/16 11:41 Hemoglobin A1c 6.4 % (4-6) H 04/04/16 13:12 Calcium 8.1 mg/dL (8.4-10.2) L 04/05/16 04:21 Total Bilirubin 0.8 mg/dL (0.1-1.2) 04/05/16 04:21 AST 175 units/L (5-40) H 04/05/16 04:21 ALT 38 units/L (7-56) 04/05/16 04:21 Alkaline Phosphatase 47 units/L (35-129) 04/05/16 04:21 Total Creatine Kinase 1525 units/L (55-170) H 04/05/16 04:21 CK-MB (CK-2) 98.7 ng/mL (0.0-4.0) H 04/05/16 04:21 CK-MB (CK-2) Rel Index 6.4 (0-4) H 04/05/16 04:21 Troponin T 5.690 ng/mL (0.00-0.029) H* D 04/05/16 04:21 NT-Pro-B Natriuret Pep 397.4 pg/mL (0-900) 04/04/16 13:12 Total Protein 6.7 g/dL (6.3-8.2) 04/05/16 04:21 Albumin 3.6 g/dL (3.9-5) L 04/05/16 04:21 Albumin/Globulin Ratio 1.2 % 04/05/16 04:21 Triglycerides 109 mg/dL (2-149) 04/04/16 13:12 Cholesterol 144 mg/dL (50-199) 04/04/16 13:12 LDL Cholesterol Direct 83 mg/dL (50-130) 04/04/16 13:12 HDL Cholesterol 40 mg/dL (40-59) 04/04/16 13:12 Cholesterol/HDL Ratio 3.60 % 04/04/16 13:12 - Imaging and Cardiology EKG: image reviewed
[2016-04-05] MEDS: EFFIENT PO SCH (20:46)
[2016-04-06] MEDS: DILAUDID IV PRN (07:19)
[2016-04-06 07:55] LABS: Hematocrit 41.1 % (35.5-45.6); Hemoglobin 13.5 gm/dl (11.8-15.2)
[2016-04-06 09:02] VITALS: BP 123/77
[2016-04-06] MEDS: EFFIENT PO SCH (09:47)
[2016-04-06] MEDS: ECOTRIN PO SCH (09:47)
[2016-04-06] MEDS: HABITROL TD SCH (09:47)
[2016-04-06] MEDS: TRADJENTA PO SCH (09:47)
--- NOTE | 2016-04-06 11:47 | Progress Note ---
Assessment and Plan Patient is doing well cardiac cox. Continue current management. If d/c will follow as OP. Pt to continue current cardiac meds. - Patient Problems (1) CAD (coronary artery disease) Current Visit: Yes Status: Acute (2) NSTEMI (non-ST elevated myocardial infarction) Current Visit: Yes Status: Acute (3) S/P PTCA (percutaneous transluminal coronary angioplasty) Current Visit: Yes Status: Acute (4) Diabetes Current Visit: Yes Status: Chronic (5) Hyperlipidemia Current Visit: Yes Status: Chronic Subjective Date of service: 04/06/16 Principal diagnosis: NSTEMI Interval history: No chest pain or dyspnea. Objective Vital Signs Temp Pulse Pulse Resp Resp BP Pulse Ox 04/06/16 09:01 97.7 F 78 20 123/77 95 04/06/16 05:57 98.5 F 87 20 120/74 04/06/16 00:44 98.1 F 80 20 119/66 90 04/05/16 22:00 88 16 04/05/16 20:00 20 04/05/16 19:57 97.9 F 04/05/16 16:00 98.7 F 04/05/16 11:57 98.6 F - Physical Examination General: No Apparent Distress HEENT: Positive: PERRL, Normocephaly, Mucus Membranes Moist Neck: Positive: neck supple, trachea midline Cardiac: Positive: Reg Rate and Rhythm Lungs: Positive: clear to auscultation Neuro: Positive: Grossly Intact Abdomen: Positive: Soft, Active Bowel Sounds. Negative: Tender Skin: Positive: Clear. Negative: Rash Incision: Cardiac Cath Site (right radial-no hematoma) Extremities: Present: normal. Absent: edema - Labs and Meds CBC 04/06/16 Range/Units 07:13 Hgb 13.5 (11.8-15.2) gm/dl Hct 41.1 (35.5-45.6) % Plt Count 147 (140-440) K/mm3 - Imaging and Cardiology EKG: image reviewed Echo: pending - EKG Sinus rhythms and dysrhythmias: sinus bradycardia Chamber hypertrophy or enlargement: left ventricular hypertro
--- NOTE | 2016-04-06 12:29 | Discharge Summary ---
Providers - Providers Date of Admission: 04/04/16 16:04 Date of discharge: 04/06/16 Attending physician: KEYA COX 04/04/16 Consult to Cardiac Rehabilitation [CONS] Routine Reason For Exam: post pci 04/04/16 16:17 Consult to Physician [CONS] Routine Consulting Provider: LINDA BERGMAN Reason For Exam: NSTEMI Place consult to:: cc cnc manager Notified:: y Was contact made?: Yes If yes, spoke with:: office lauren Time called:: 16:40 Primary care physician: WIGS SALESPERSON Hospitalization Condition: Stable Hospital course: Patient is 55 yo man with presented with cp and found to have the followin. NSTEMI s/p LESLY RCA 2. Hypotension related to above, wean off dopamine 3. DM; add ssi 4. DLP: statin transferred out of the icu per Cardiology, Dr. franklin chiang: "Patient is doing well cardiac cox. Continue current management. If d/c will follow as OP. Pt to continue current cardiac meds. - Patient Problems (1) CAD (coronary artery disease) Current Visit: Yes Status: Acute (2) NSTEMI (non-ST elevated myocardial infarction) Current Visit: Yes Status: Acute (3) S/P PTCA (percutaneous transluminal coronary angioplasty) Current Visit: Yes Status: Acute (4) Diabetes Current Visit: Yes Status: Chronic (5) Hyperlipidemia Current Visit: Yes Status: Chronic" Called Dr. BK. Chiang to discuss cardiac meds, await call back Time of discharged 32 minutes Disposition: DISCHARGED TO HOME OR SELFCARE Core Measure Documentation - Palliative Care Palliative Care/ Comfort Measures: Not Applicable - Core Measures Any of the following diagnoses?: acute IL - VTE Discharge Requirements Deep Vein Thrombosis/Pulmonary Embolism Present on Admission: No Has pt received <5 days of overlap therapy or INR<2.0: No Anticoagulant overlap therapy prescribed at discharge: No Contraindication No Overlap Therapy order at DC: Not Indicated - Acute IL Discharge Requirements Aspirin at discharge: Yes YAMILKA/ARB for LVSD if EF <40%: Yes Beta saurabh at discharge: Yes Statin for LDL = or >100 mg/dl on DC: Yes Exam - Physical Exam Narrative exam: GEN: WDWN, NAD, AWAKE, ALERT, ORIENTATED 3 HEENT: NCAT, PERRL, EOMI, OP CLEAR NECK: SUPPLE, NO THYROMEGALY, NO JVD, NO LAD CVS: RRR, NORMAL S1S2 LUNGS/CHEST: CTA B, NORMAL CHEST EXPANSION B, GOOD AIR ENTRY B ABD: SOFT NTND, GBS, NO REBOUND OR GUARDING EXT/SKIN: NO SIGNIFICANT EDEMA OR RASH MSK: FROM X 4 EXTREMITIES NEURO: CN 2-12 GROSSLY INTACT, NO FOCAL DEFICITS PSY: CALM - Constitutional Vitals: Temp Pulse Resp BP Pulse Ox 97.7 F 78 20 123/77 95 04/06/16 09:01 04/06/16 09:01 04/06/16 09:01 04/06/16 09:01 04/06/16 09:01 Plan Activity: advance as tolerated (no strenous activites until cleared by PCP and cardiology) Diet: low salt, diabetic Follow up with: PRIMARY CARE, [Primary Care Provider] - 3-5 Days RAYMOND MARTINEZ MD [Staff Physician] - 7 Days Prescriptions: Zolpidem [Ambien] 5 mg PO QHS PRN #30 tablet PRN Reason: Insomnia AtorvaSTATin [Lipitor] 80 mg PO QHS #30 tablet Aspirin [Aspirin TAB] 325 mg PO QDAY #30 tablet Prasugrel [Effient] 10 mg PO QDAY #30 tablet Nicotine [Habitrol] 21 mg TD QDAY #14 patch Metoprolol [Lopressor TAB] 25 mg PO BID #60 tablet Nitroglycerin [Nitrostat] 0.4 mg SL Q5M PRN #30 tab PRN Reason: Chest Pain HYDROcodone/APAP 5-325 [[place] 5-325 mg TAB] 1 each PO Q6H PRN #30 tablet PRN Reason: Pain , Severe (7-10) ALPRAZolam [Xanax TAB] 0.25 mg PO Q8H PRN #30 tablet PRN Reason: Anxiety
== END 2016-04-06 14:11 | disposition home or self-care (01) | DRG 247 ==
LOC: ED 12:30 → CC1 16:04 → 4A 04-05 23:04
PROVIDERS: ADMIT Internal Medicine; ATTEND Internal Medicine
PROC: 4A023N7 Measurement of Cardiac Sampling and Pressure, Left Heart, Percutaneous Approach (ICD-10-PCS; principal; 2016-04-04)
PROC: 027034Z Dilation of Coronary Artery, One Artery with Drug-eluting Intraluminal Device, Percutaneous Approach (ICD-10-PCS; 2016-04-04)
PROC: B2111ZZ Fluoroscopy of Multiple Coronary Arteries using Low Osmolar Contrast (ICD-10-PCS; 2016-04-04)
PROC: B2151ZZ Fluoroscopy of Left Heart using Low Osmolar Contrast (ICD-10-PCS; 2016-04-04)
PROC: 02C03ZZ Extirpation of Matter from Coronary Artery, One Artery, Percutaneous Approach (ICD-10-PCS; 2016-04-04)
DX: I21.4 Non-ST elevation (NSTEMI) myocardial infarction (principal); I10 Essential (primary) hypertension; E78.5 Hyperlipidemia, unspecified; F17.200 Nicotine dependence, unspecified, uncomplicated; E11.9 Type 2 diabetes mellitus without complications; R00.1 Bradycardia, unspecified; I25.10 Atherosclerotic heart disease of native coronary artery without angina pectoris; R63.4 Abnormal weight loss; I95.9 Hypotension, unspecified; I25.82 Chronic total occlusion of coronary artery; Z82.49 Family history of ischemic heart disease and other diseases of the circulatory system
CPT/HCPCS: 36415; 71010; 71275; 80048; 80053; 80061; 82550; 82553; 82962; 83036; 83880; 84484; 85014; 85018; 85025; 85049; 85520; 85610; 85730; 92941; 93005; 93010; 93306; 93458; 96361; 96374; 96375; A9270-GY; C1725; C1757; C1769; C1874; C1887; C1894; C9606; J1170; J1265; J1644; J1885; J2250; J2270; J2405; J3010; J3246; J7030; Q9967

== ENCOUNTER 2016-04-07 05:24 | Inpatient (IN) | payer OTHER ==
[2016-04-07 06:13] LABS: Basophils % (Auto) 0.3 % (0.0-1.8); Hemoglobin 13.7 gm/dl (11.8-15.2); Mean Corpuscular HGB Conc 33 % (32-34); Mean Corpuscular Hemoglobin 29 pg (28-32); Mean Corpuscular Volume 89 fl (84-94); Platelet Count 153 K/mm3 (140-440); Red Cell Distribution Width 13.8 % (13.2-15.2)
[2016-04-07 06:36] LABS: BUN/Creatinine Ratio 11.66; Blood Urea Nitrogen 14 mg/dL (9-20); Calcium 8.5 mg/dL (8.4-10.2); Carbon Dioxide 26 mmol/L (22-30); Chloride 100.4 mmol/L (98-107); Glucose 110 mg/dL (75-100); Potassium 3.7 mmol/L (3.6-5.0); Sodium 137 mmol/L (137-145)
[2016-04-07 06:47] LABS: Anion Gap 14 mmol/L
[2016-04-07] MEDS ORDERED: ASPIRIN PO ONE (06:47)
[2016-04-07] MEDS ORDERED: NITRO-BID 2% TP ONE (06:54)
[2016-04-07] MEDS ORDERED: LASIX IV ONE (06:54)
--- NOTE | 2016-04-07 07:00 | Emergency Department Report ---
HPI - General Chief Complaint: Chest Pain Time Seen by Provider: 04/07/16 06:39 - HPI HPI: Chief complaint: Shortness of breath and chest pain HPI: Patient is a 55-year-old male with history of diabetes, hypertension, coronary artery disease status post RCA stent 3 days ago who presents with increasing shortness of breath exacerbated by laying flat. Patient states he's been having a pinching sharp pain to his left anterior chest increases with breathing. Patient however is most concerned about his shortness of breath. Patient did have some nausea and vomiting but no diaphoresis. Patient states the pain is not like when he had pain prior to his stent. Patient states he is taking all his medications. Patient's echocardiogram showed an ejection fraction of 45-50% when he was just here. Mode of arrival: private car Source: Patient old chart Began: Last night Duration: The last 6 hours Context: See above Quality: See above Severity: Pain is currently 0 out of 10 Improved with: Shortness of breath improves with sitting up Worsened with: And worsens with laying down. Associated signs and symptoms: See above ED Past Medical Hx - Past Medical History Previous Medical History?: Yes Hx Hypertension: Yes Hx Diabetes: Yes - Surgical History Past Surgical History?: Yes Additional Surgical History: Stent 04/05/16. back - Social History Smoking Status: Never Smoker Substance Use Type: None - Medications Home Medications: Home Medications Medication Instructions Recorded Confirmed Last Taken Type Metformin HCl [Glucophage] 1,000 mg PO BID 04/04/16 04/04/16 Unknown History Sitagliptin Phosphate [Januvia] 0 mg PO DAILY 04/04/16 04/04/16 Unknown History ALPRAZolam [Xanax TAB] 0.25 mg PO Q8H PRN #30 tablet 04/06/16 Unknown Rx Aspirin [Aspirin TAB] 325 mg PO QDAY #30 tablet 04/06/16 Unknown Rx AtorvaSTATin [Lipitor] 80 mg PO QHS #30 tablet 04/06/16 Unknown Rx HYDROcodone/APAP 5-325 [[place] 1 each PO Q6H PRN #30 tablet 04/06/16 Unknown Rx 5-325 mg TAB] Metoprolol [Lopressor TAB] 25 mg PO BID #60 tablet 04/06/16 Unknown Rx Nicotine [Habitrol] 21 mg TD QDAY #14 patch 04/06/16 Unknown Rx Nitroglycerin [Nitrostat] 0.4 mg SL Q5M PRN #30 tab 04/06/16 Unknown Rx Prasugrel [Effient] 10 mg PO QDAY #30 tablet 04/06/16 Unknown Rx Zolpidem [Ambien] 5 mg PO QHS PRN #30 tablet 04/06/16 Unknown Rx ED Review of Systems ROS: Stated complaint: CHEST PAIN Other details as noted in HPI ROS Constitutional: No fever ENT: No uri symptoms Cardiovascular: chest pain Respiratory: No cough GI: No diarrhea : No dysuria frequency or urgency, Skin: No rash Neuro: No focal weakness or numbness Psych: No depression Eusebio/lymph: No edema Physical Exam - Physical Exam Vital Signs: Vital Signs 04/07/16 04/07/16 05:26 06:11 Temperature 97.6 F 97.8 F Pulse Rate 89 85 Respiratory 20 16 Rate Blood Pressure 146/93 Blood Pressure 141/83 [Right] O2 Sat by Pulse 96 94 Oximetry Physical Exam: GENERAL: The patient is well-developed well-nourished . HEENT: Normocephalic. Atraumatic. Extraocular motions are intact. Patient has moist mucous membranes. NECK: Supple. No meningitic signs are noted. There is no adenopathy noted. CHEST/LUNGS: Mild bibasilar rales. There is no respiratory distress noted. HEART/CARDIOVASCULAR: Regular. There is no tachycardia. ABDOMEN: Abdomen is soft, nontender. Patient has normal bowel sounds. There is no abdominal distention. SKIN: There is no rash. There is trace bilateral pedal edema. There is no diaphoresis. NEURO: The patient is awake, alert, and oriented. The patient is cooperative. The patient has no focal neurologic deficits. The patient has normal speech. MUSCULOSKELETAL: There is no tenderness or deformity. There is no limitation range of motion. There is no evidence of acute injury. ED Course Vital Signs 04/07/16 04/07/16 05:26 06:11 Temperature 97.6 F 97.8 F Pulse Rate 89 85 Respiratory 20 16 Rate Blood Pressure 146/93 Blood Pressure 141/83 [Right] O2 Sat by Pulse 96 94 Oximetry - Reevaluation(s) Reevaluation #1: 04/07/16 06:59 Patient given an inch of nitroglycerin paste and 20 mg of IV Lasix. ED Medical Decision Making - Lab Data Result diagrams: 04/07/16 05:50 04/07/16 05:50 Laboratory Tests 04/07/16 05:50 Troponin T 3.130 H* D - EKG Data -: EKG Interpreted by Me EKG shows normal: sinus rhythm Rate: normal (89) - EKG Data When compared to previous EKG there are: no significant change Interpretation: other (inferior T-wave inversions seen previously.) - Radiology Data interpreted by me: Chest x-ray shows cardiomegaly and congestive heart failure. Critical care attestation.: If time is entered above; I have spent that time in minutes in the direct care of this critically ill patient, excluding procedure time. ED Disposition Clinical Impression: Acute congestive heart failure Qualifiers: Congestive heart failure type: unspecified congestive heart failure type Qualified Code(s): I50.9 - Heart failure, unspecified Disposition: OP ADMITTED IP TO THIS HOSP Is pt being admited?: Yes Does the pt Need Aspirin: Yes Condition: Fair Time of Disposition: 07:01 (admit to the hospitalist)
--- NOTE | 2016-04-07 09:49 | XRay Report ---
AP CHEST: HISTORY: Shortness of breath Mild cardiomegaly and pulmonary edema have developed since 04/05/16. Trace pleural effusions are are suspected. No consolidation or pneumothorax. IMPRESSION: Mild volume overload versus CHF.
--- NOTE | 2016-04-07 10:07 | History and Physical Report ---
History of Present Illness Date of examination: 04/07/16 Date of admission: 04/07/16 07:25 Chief complaint: Shortness of breath History of present illness: Patient is a 55-year-old man with history of type 2 diabetes mellitus, hypertension, ex-smoker quit 10 days ago and recent non-STEMI who was discharged yesterday and presents back to emergency department with worsening shortness of breath when lying flat. On 04/04/2016 cardiac catheterization and coronary intervention by Dr. Joy: Uncomplicated drug-eluting stent placement after the balloon angioplasty and catheter thrombolytic to me of the distal right RCA with good result. Lesion was reduced from 100% to 0% and KATHARINE 3 flow was noted post procedure and preprocedure. KATHARINE flow was 0. No cough location of dissection or perforation noted. Left coronary system showed only 40% smooth lesion in the distal circumflex. Otherwise, rest the left circumflex without significant disease. Considering the above the patient will be continued on medical therapy. The patient and diastolic pressure was elevated up to 13 mmHg. Estimated ejection fraction 50%. Per Dr. Angelique Crenshaw yesterday, "Patient is doing well cardiac cox. Continue current management. If d/c will follow as OP. Pt to continue current cardiac meds." Past History Past Medical History: other (as HPI) Past Surgical History: Other (cervical neck repair due to disc herniation) Social history: full code. denies: smoking, alcohol abuse, prescription drug abuse, IV drug use Family history: CAD (brother just during this past [place] of a heart attack age 59 another brother had a [place] age 59 also.), hypertension (mother's side), stroke (mother's side) Medications and Allergies Allergies Allergy/AdvReac Type Severity Reaction Status Date / Time No Known Allergies Allergy Unverified 04/04/16 12:57 Home Medications Medication Instructions Recorded Confirmed Last Taken Type Metformin HCl [Glucophage] 1,000 mg PO BID 04/04/16 04/07/16 Unknown History Sitagliptin Phosphate [Januvia] 0 mg PO DAILY 04/04/16 04/07/16 Unknown History ALPRAZolam [Xanax TAB] 0.25 mg PO Q8H PRN #30 tablet 04/06/16 04/07/16 Unknown Rx Aspirin [Aspirin TAB] 325 mg PO QDAY #30 tablet 04/06/16 04/07/16 Unknown Rx AtorvaSTATin [Lipitor] 80 mg PO QHS #30 tablet 04/06/16 04/07/16 Unknown Rx HYDROcodone/APAP 5-325 [[place] 1 each PO Q6H PRN #30 tablet 04/06/16 04/07/16 Unknown Rx 5-325 mg TAB] Metoprolol [Lopressor TAB] 25 mg PO BID #60 tablet 04/06/16 04/07/16 Unknown Rx Nicotine [Habitrol] 21 mg TD QDAY #14 patch 04/06/16 04/07/16 Unknown Rx Nitroglycerin [Nitrostat] 0.4 mg SL Q5M PRN #30 tab 04/06/16 04/07/16 Unknown Rx Prasugrel [Effient] 10 mg PO QDAY #30 tablet 04/06/16 04/07/16 Unknown Rx Zolpidem [Ambien] 5 mg PO QHS PRN #30 tablet 04/06/16 04/07/16 Unknown Rx Active Meds: Active Medications Heparin Sodium (Porcine) (Heparin) 5,000 unit SUB-Q Q12HR EDUARDO Review of Systems All systems: negative (as HPI and all other ROS reviewed and negative.) Exam - Physical Exam Narrative exam: GEN: WDWN, NAD, AWAKE, ALERT, ORIENTATED 3 HEENT: NCAT, PERRL, EOMI, OP CLEAR NECK: SUPPLE, NO THYROMEGALY, NO LAD CVS: RRR, NORMAL S1S2 LUNGS/CHEST: Bibasilar crackles NORMAL CHEST EXPANSION B, adequate AIR ENTRY B ABD: SOFT NTND, GBS, NO REBOUND OR GUARDING EXT/SKIN: Trace pretibial edema bilateral legs MSK: FROM X 4 EXTREMITIES NEURO: CN 2-12 GROSSLY INTACT, NO FOCAL DEFICITS PSY: CALM - Constitutional Vitals: Temp Pulse Resp BP Pulse Ox 97.8 F 79 23 134/86 94 04/07/16 06:11 04/07/16 09:00 04/07/16 09:00 04/07/16 09:00 04/07/16 09:47 Results - Labs CBC & Chem 7: 04/07/16 05:50 04/07/16 05:50 Labs: Abnormal lab results 04/07/16 Range/Units 08:33 Troponin T 2.690 H* (0.00-0.029) ng/mL - Imaging and Cardiology EKG: image reviewed Chest x-ray: image reviewed Assessment and Plan Patient is a 55-year-old man with history of type 2 diabetes mellitus, hypertension, ex-smoker quit 10 days ago and recent non-STEMI who was discharged yesterday and presents back to emergency department with worsening progressive constant shortness of breath when lying flat. On 04/04/2016 cardiac catheterization and coronary intervention by Dr. Joy: Uncomplicated drug- eluting stent placement after the balloon angioplasty and catheter thrombolytic to me of the distal right RCA with good result. Lesion was reduced from 100% to 0% and KATHARINE 3 flow was noted post procedure and preprocedure. KATHARINE flow was 0. No cough location of dissection or perforation noted. Left coronary system showed only 40% smooth lesion in the distal circumflex. Otherwise, rest the left circumflex without significant disease. Considering the above the patient will be continued on medical therapy. The patient and diastolic pressure was elevated up to 13 mmHg. Estimated ejection fraction 50%. Per Dr. Angelique Crenshaw yesterday, "Patient is doing well cardiac cox. Continue current management. If d/c will follow as OP. Pt to continue current cardiac meds." Patient also complains of left-sided intermittent transient "pinching" chest pains that lasted only 10 seconds. He also has a nonproductive occasionally cough. He denies any fevers, chills, nausea vomiting, diaphoresis, severe headaches or abdominal pains. 1. Acute diastolic heart failure: IV Lasix 2. Coronary artery disease with angina: Consult cardiology, consult case management because patient having difficulty with obtaining Effient prescription card that was given upon discharge has , 03/30/16. 3. Hypertension, chronic and slightly elevated: Continue antihypertensive and titrate medication 4. Type 2 diabetes mellitus: Has sliding scale 5. DVT prophylaxis: SCD and subcutaneous heparin 6. GI prophylaxis: Pepcid Full code Disposition: Continue inpatient care
[2016-04-07] MEDS ORDERED: NITROSTAT SL PRN (10:14)
[2016-04-07] MEDS ORDERED: XANAX PO PRN (10:14)
[2016-04-07] MEDS ORDERED: AMBIEN PO PRN (10:14)
[2016-04-07] MEDS ORDERED: NORCO 5/325 PO PRN (10:14)
[2016-04-07] MEDS ORDERED: D50W (25GM) IV PRN (10:16)
--- NOTE | 2016-04-07 11:19 | Event Note ---
Date: 04/07/16 Cardio note dictated CAD S?P PTCA CHF Pt annamarie be followed closely. Agree with current management. Dr CRISTY Crenshaw
[2016-04-07] MEDS: EFFIENT PO SCH (11:31)
[2016-04-07] MEDS: NOVOLOG SUB-Q SCH ×3 (12:28→21:25)
[2016-04-07 13:45] LABS: Creatine Kinase MB 4.3 ng/mL (0.0-4.0)
[2016-04-07 17:58] LABS: Creatine Kinase MB 3.4 ng/mL (0.0-4.0)
[2016-04-07] MEDS: LASIX IV SCH (18:31)
[2016-04-07] MEDS: LOPRESSOR PO SCH (21:23)
[2016-04-07] MEDS: PEPCID PO SCH (21:23)
[2016-04-08 02:12] LABS: Creatine Kinase MB 2.4 ng/mL (0.0-4.0)
--- NOTE | 2016-04-08 02:47 | Consultation ---
CARDIOLOGY EVALUATION REFERRING PHYSICIAN: Dr. Reid Hartmann. REASON FOR CONSULTATION: Congestive heart failure. HISTORY OF PRESENT ILLNESS: The patient is a 55-year-old gentleman who is known to have a longstanding history of smoking, hypertension and diabetes, comes into the Emergency Room with worsening difficulty in breathing. The patient was recently admitted to the hospital today, he was discharged yesterday. He was admitted on 04/04/2016 with a non-STEMI. The patient had a drug-eluting stent to right coronary artery. The patient was stable yesterday and he was discharged. After he went home, he started having increasing difficulty in breathing and throughout the night, he continued to have difficulty in breathing and hence came back to the emergency room. He denies any chest pain throughout this time. No palpitations. No change in his diet after eventful. REVIEW OF SYSTEMS: HEAD, EYES, EARS, NOSE AND THROAT: No symptoms. ENDOCRINE: Known to have diabetes. RESPIRATORY: No symptoms. GASTROINTESTINAL: No abdominal pain, nausea, or vomiting. Bowel habits have been regular. GENITOURINARY: No symptoms. CENTRAL NERVOUS SYSTEM: No symptoms. LOCOMOTOR: No symptoms. SOCIAL HISTORY: Used to smoke, but stopped smoking about 10-15 days ago. PHYSICAL EXAMINATION: GENERAL: Adult markedly obese male, in no acute distress at this time. VITAL SIGNS: Blood pressure 136/77, pulse 76. HEAD, EYES, EARS, NOSE AND THROAT: Unremarkable. NECK: Supple, no thyromegaly. Both carotids are palpable and equal. Neck veins are flat. CHEST: Symmetrical. LUNGS: Essentially clear. CARDIOVASCULAR: S1, S2 are heard well. ABDOMEN: Obese, nontender. No hepatosplenomegaly. EXTREMITIES: No significant edema or calf tenderness. Chest x-ray showed mild vascular congestion. LABORATORY DATA: WBC 9000, hemoglobin , hematocrit 42, blood sugar 110. BNP 1462. IMPRESSION: 1. Worsening dyspnea, possible congestive heart failure. 2. Coronary artery disease, status post recent percutaneous transluminal coronary angioplasty of right coronary artery for non-ST segment elevation myocardial infarction. 3. Obesity. 4. Hypertension. 5. Diabetes. 6. Hyperlipidemia. The patient is seen for cardiac evaluation. Currently, he is on intravenous diuretics. He is on a small dose of metoprolol. He is also on Effient. Plan is to continue current management. The patient will be monitored and followed closely with you. Thank you, Dr. Hartmann for allowing me to participate in the care of this gentleman. JOB# [id number] CATRACHO/NTS
--- NOTE | 2016-04-08 03:34 | Admit Criteria Form ---
Admission Criteria Documentation: HEART FAILURE: COMMON COMPLICATIONS Clinical Indications for Inpatient Care (Place 'X' for any and all applicable criteria): Ongoing inpatient care may be indicated for heart failure with ANY ONE of the following (1)(2)(3)(4)(5): [ ]I. Ongoing need for care for primary condition requiring frequent therapy adjustments because of changes in cardiac function (eg, drug dosage changes for drugs that are renally metabolized) [ ]II. New-onset heart failure [ ]III. Heart failure with decreased urine output not responsive to attempts to optimize volume status [ ]IV. Acute cardiac ischemia causing or associated with failure [ X]V. Complications of heart failure, including ANY ONE of the following: [ ]a) Pericardial effusion [ ]b) Symptomatic pleural effusion [ ]c) O2 saturation <90% or PO2 < 60 mm Hg (8.0 kPa) on room air or require baseline supplemental O2 [ ]d) Tachypnea [ X]e) Dyspnea [ ]f) Syncope [ ]g) Change in mental status [ ]h) Acute renal insufficiency that is severe (reduction of more than 50% in estimated glomerular filtration rate from baseline) or progressive reduction of more than 25% in estimated glomerular filtration rate from baseline, with creatinine continuing to rise) [ ]i) Hemodynamic instability [ ]j) Anasarca [ ]k) Clinically significant metabolic abnormalities due to heart failure (eg, new-onset metabolic acidosis) Extended stay beyond goal length of stay for primary condition may be needed until ALL of the following are present(1)(3): [ ]a) Stable and effective diuretic regimen established (or patient on stable dialysis regimen if in chronic renal failure) [ ]b) Breathing comfortably at rest [ ]c) Saturation of arterial oxygen greater than 90% or at acceptable baseline [ ]d) Pulmonary edema absent or improved [ ]e) Hemodynamic stability [ ]f) Volume status acceptable on oral medication [ ]g) Peripheral or sacral edema absent or improved [ ]h) Renal function stable and manageable at a lower level of care [ ]i) Complications (eg, pleural effusion) resolved or manageable at a lower level of care [ ]j) Patient or caregiver has received written discharge instructions or educational material addressing activity level, diet, discharge medications, follow-up appointment, weight monitoring, and what to do if symptoms worsen The original [email or web address] content created by [employer] has been revised. The portions of the content which have been revised are identified through the use of italic text or in bold, and [facility] has neither reviewed nor approved the modified material.All other unmodified content is copyright [facility]. Please see references footnoted in the original [facility] edition 2016 Admission Criteria Met: Yes
[2016-04-08] MEDS: LASIX IV SCH ×2 (05:58→18:16)
[2016-04-08 07:59] LABS: Hematocrit 41.6 % (35.5-45.6); Hemoglobin 13.5 gm/dl (11.8-15.2); Mean Corpuscular HGB Conc 33 % (32-34); Mean Corpuscular Hemoglobin 29 pg (28-32); Mean Corpuscular Volume 91 fl (84-94); Platelet Count 161 K/mm3 (140-440); Red Cell Distribution Width 13.8 % (13.2-15.2); White Blood Count 7.6 K/mm3 (4.5-11.0)
[2016-04-08 08:10] LABS: Anion Gap 17 mmol/L; BUN/Creatinine Ratio 9.28; Blood Urea Nitrogen 13 mg/dL (9-20); Calcium 8.7 mg/dL (8.4-10.2); Carbon Dioxide 26 mmol/L (22-30); Chloride 101.2 mmol/L (98-107); Glucose 126 mg/dL (75-100); Potassium 3.8 mmol/L (3.6-5.0); Sodium 140 mmol/L (137-145)
[2016-04-08] MEDS: NOVOLOG SUB-Q SCH ×4 (08:48→22:44)
--- NOTE | 2016-04-08 10:13 | Progress Note ---
Assessment and Plan Acute diastolic heart failure clinically improving Echo 03/2016: EF 45-50%, will repeat continue lasix, metoprolol S/p recent NSTEMI and PCI of distal RCA continue ASA, Effient, Lipitor Coronary artery disease Hypertension Diabetes Will repeat echocardiogram. The patient has been seen in conjunction with Dr. Joy who agrees with the assessment and plan of care. Subjective Date of service: 04/08/16 Principal diagnosis: acute diastolic heart failure Interval history: The patient is resting comfortably in bed. He feels better today. No complaints. Sinus rhythm on the monitor. Objective Last Vital Signs Temp 98.0 F 04/08/16 07:17 Pulse 80 04/08/16 09:21 Resp 22 04/08/16 07:17 BP 168/91 04/08/16 07:17 Pulse Ox 95 04/08/16 09:49 - Physical Examination General: No Apparent Distress HEENT: Positive: Normocephaly, Mucus Membranes Moist Neck: Positive: neck supple, trachea midline Cardiac: Positive: Reg Rate and Rhythm, S1/S2 Lungs: Positive: clear to auscultation Neuro: Positive: Grossly Intact Abdomen: Positive: Soft, Active Bowel Sounds. Negative: Tender Skin: Positive: Clear. Negative: Rash Extremities: Present: normal. Absent: edema - Labs and Meds Cardiac Enzymes 04/07/16 04/07/16 04/08/16 Range/Units 13:17 17:18 00:45 CK-MB (CK-2) 4.3 H 3.4 2.4 (0.0-4.0) ng/mL CBC 04/08/16 Range/Units 06:52 WBC 7.6 (4.5-11.0) K/mm3 RBC 4.60 (3.65-5.03) M/mm3 Hgb 13.5 (11.8-15.2) gm/dl Hct 41.6 (35.5-45.6) % Plt Count 161 (140-440) K/mm3 Comprehensive Metabolic Panel 04/08/16 Range/Units 06:52 Sodium 140 (137-145) mmol/L Potassium 3.8 (3.6-5.0) mmol/L Chloride 101.2 (98-107) mmol/L Carbon Dioxide 26 (22-30) mmol/L BUN 13 (9-20) mg/dL Creatinine 1.4 (0.8-1.5) mg/dL Glucose 126 H (75-100) mg/dL Calcium 8.7 (8.4-10.2) mg/dL - Imaging and Cardiology EKG: image reviewed Echo: report reviewed - Telemetry EKG Rhythm: Sinus Rhythm (03/2016: EF 45-50%)
[2016-04-08] MEDS: ASPIRIN PO SCH (10:50)
[2016-04-08] MEDS: HABITROL TD SCH (10:50)
[2016-04-08] MEDS: PEPCID PO SCH ×2 (10:50→22:17)
[2016-04-08] MEDS: LOPRESSOR PO SCH ×2 (10:50→22:17)
[2016-04-08] MEDS: EFFIENT PO SCH (10:50)
--- NOTE | 2016-04-08 16:40 | Echocardiography Report ---
Transthoracic Echocardiogram Indication: Heart failure BP: 168/ Conclusions *Mild concentric left ventricular hypertrophy is observed. *Global left ventricular systolic function is moderately decreased. Basal inferior wall is more hypokinetic compared to rest of the ventricle *The estimated ejection fraction is 35-40%. *Normal left ventricular diastolic filling is observed. *The left atrium is normal in size with no visual thrombus identified. *The aortic valve structure is normal. *There is mild mitral regurgitation. *There is no evidence of tricuspid valve regurgitation. *The inferior vena cava appears normal in size. Findings Left Ventricle: The left ventricular chamber size is mildly dilated. Mild concentric left ventricular hypertrophy is observed. Global left ventricular systolic function is moderately decreased. The estimated ejection fraction is 35-40%. Normal left ventricular diastolic filling is observed. Left Atrium: The left atrium is normal in size with no visual thrombus identified. Right Ventricle: The right ventricular cavity size is normal. The right ventricular global systolic function is normal. Right Atrium: The right atrium appears normal. The interatrial septum appears normal. Aortic Valve: The aortic valve structure is normal. There is no evidence of aortic regurgitation. There is no evidence of aortic stenosis. Mitral Valve: The mitral valve leaflets appear normal. There is mild mitral regurgitation. There is no evidence of mitral stenosis. Tricuspid Valve: The tricuspid valve leaflets are normal. There is no evidence of tricuspid valve regurgitation. The right ventricular systolic pressure is calculated at 34 mmHg. There is no tricuspid stenosis. Pulmonic Valve: The pulmonic valve appears normal. There is trace pulmonic regurgitation. There is no pulmonic stenosis. Pericardium: There is no pericardial effusion. Aorta: There is no dilatation of the ascending aorta. There is no dilatation of the aortic arch. There is no dilatation of the descending thoracic aorta. There is no dilatation of the aortic root. Venous: The inferior vena cava appears normal in size. Measurements Chambers MM Name Value Normal Range Ao root diameter (MM) 3.1 cm (2 - 3.7) LA dimension (AP) MM 4.5 cm (1.9 - 4) LA:Ao ratio (MM) 1.45 ratio - Chambers 2D Name Value Normal Range RVIDd (AP) 2D 3.1 cm (0.9 - 2.6) IVSd (2D) 1.25 cm (0.6 - 1.1) LVPWd (2D) 1.28 cm (0.6 - 1.1) IVS:LVPW ratio (2D) 0.98 ratio - LVIDd (2D) 5.62 cm (3.7 - 5.6) LVIDs (2D) 4.74 cm (2 - 3.8) LV FS (Teichholz) (2D) 15.7 % - LV FS (cube) (2D) 15.7 % - EF Teichholz (2D) 32.9 % - LA dimension (AP) 2D 4.9 cm (1.9 - 4) Volumes/Mass Name Value Normal Range LA ESV SP 4CH (MOD) 44 ml - LA ESV SP 2CH (MOD) 59 ml - LA ESV BP (MOD) 54 ml - LA ESV BP (MOD) index 21.9 ml/m2 - LV EDV SP 4CH (MOD) 95 ml - LV ESV SP 4CH (MOD) 63 ml - EF SP 4CH (MOD) 34 % - LV EDV SP 2CH (MOD) 68 ml - LV ESV SP 2CH (MOD) 44 ml - EF SP 2CH (MOD) 35 % - LV EDV BP 82 ml - LV ESV BP 53 ml - BP EF (MOD) 35 % - Diastolic/Systolic Function Name Value Normal Range MV E-wave Vmax 0.9 m/sec - MV deceleration time 88 msec - MV A-wave Vmax 0.69 m/sec - MV E:A ratio 1.3 ratio - LV septal e' Vmax 0.07 m/sec - LV lateral e' Vmax 0.07 m/sec - LV E:e' septal ratio 12 ratio - LV E:e' lateral ratio 12.2 ratio - Aortic Valve Name Value Normal Range AV VTI 23.4 cm - AV mean gradient 4 mmHg - LVOT diameter 2.1 cm - LVOT VTI 13.7 cm - LVOT mean gradient 1 mmHg - SV LVOT 47 ml - LILLY (continuity VTI) 2.03 cm2 - Mitral Valve Name Value Normal Range MV PHT 49 msec - MR Vmax 5.19 m/sec - MR VTI 183 cm - MVA (PHT) 4.49 cm2 - Tricuspid Valve Name Value Normal Range TR Vmax 2.8 m/sec - TR peak gradient 31 mmHg - RAP 3 mmHg - RVSP 34 mmHg - Pulmonic Valve/Qp:Qs Name Value Normal Range PV Vmax 0.8 m/sec - PV peak gradient 3 mmHg - WV end-diastolic Vmax 1.47 m/sec -
--- NOTE | 2016-04-08 17:07 | Progress Note ---
Assessment and Plan Assessment and plan: Patient is a 55-year-old man with history of type 2 diabetes mellitus, hypertension, ex-smoker quit 10 days ago and recent non-STEMI who presented with orthopnea 1. Acute diastolic heart failure: IV Lasix, repeat echo, cardiology input appreciated 2. Coronary artery disease sp recent PCI ; no angina, no CP 3. Hypertension, chronic and slightly elevated: Continue antihypertensive and titrate medication 4. Type 2 diabetes mellitus: Has sliding scale 5. DVT prophylaxis: SCD and subcutaneous heparin 6. GI prophylaxis: Pepcid Full code Disposition: Continue inpatient care History Interval history: No chest pain or shortness of breath, orthopnea has resolved. Hospitalist Physical - Physical exam Narrative exam: General: Patient appears well in no distress HEENT: MMM, EOMI cardiac: S1-S2 heard lungs: clear to auscultation, abdomen: soft, nontender, nondistended bowel sounds positive extremities: no edema clubbing or cyanosis Skin: no rash or lesion Neuro: no focal deficit Psych: appropriate behavior and mood, cognition intact - Constitutional Vitals: Temp Pulse Resp BP Pulse Ox 98.1 F 72 20 119/63 97 04/08/16 15:14 04/08/16 15:14 04/08/16 15:14 04/08/16 15:14 04/08/16 15:14 Results - Labs CBC & Chem 7: 04/08/16 06:52 04/08/16 06:52 Labs: Laboratory Last Values WBC 7.6 K/mm3 (4.5-11.0) 04/08/16 06:52 RBC 4.60 M/mm3 (3.65-5.03) 04/08/16 06:52 Hgb 13.5 gm/dl (11.8-15.2) 04/08/16 06:52 Hct 41.6 % (35.5-45.6) 04/08/16 06:52 MCV 91 fl (84-94) 04/08/16 06:52 MCH 29 pg (28-32) 04/08/16 06:52 MCHC 33 % (32-34) 04/08/16 06:52 RDW 13.8 % (13.2-15.2) 04/08/16 06:52 Plt Count 161 K/mm3 (140-440) 04/08/16 06:52 Lymph % (Auto) 22.0 % (13.4-35.0) 04/07/16 05:50 [place] % (Auto) 6.6 % (0.0-7.3) 04/07/16 05:50 Eos % (Auto) 2.0 % (0.0-4.3) 04/07/16 05:50 Baso % (Auto) 0.3 % (0.0-1.8) 04/07/16 05:50 Lymph # 2.0 K/mm3 (1.2-5.4) 04/07/16 05:50 [place] # 0.6 K/mm3 (0.0-0.8) 04/07/16 05:50 Eos # 0.2 K/mm3 (0.0-0.4) 04/07/16 05:50 Baso # 0.0 K/mm3 (0.0-0.1) 04/07/16 05:50 Seg Neutrophils % 69.1 % (40.0-70.0) 04/07/16 05:50 Seg Neutrophils # 6.2 K/mm3 (1.8-7.7) 04/07/16 05:50 Sodium 140 mmol/L (137-145) 04/08/16 06:52 Potassium 3.8 mmol/L (3.6-5.0) 04/08/16 06:52 Chloride 101.2 mmol/L (98-107) 04/08/16 06:52 Carbon Dioxide 26 mmol/L (22-30) 04/08/16 06:52 Anion Gap 17 mmol/L 04/08/16 06:52 BUN 13 mg/dL (9-20) 04/08/16 06:52 Creatinine 1.4 mg/dL (0.8-1.5) 04/08/16 06:52 Estimated GFR > 60 ml/min 04/08/16 06:52 BUN/Creatinine Ratio 9.28 % 04/08/16 06:52 Glucose 126 mg/dL (75-100) H 04/08/16 06:52 POC Glucose 111 (70-105) H 04/08/16 08:16 Calcium 8.7 mg/dL (8.4-10.2) 04/08/16 06:52 Magnesium 2.0 mg/dL (1.7-2.3) 04/08/16 06:52 Total Creatine Kinase 295 units/L (55-170) H 04/08/16 00:45 CK-MB (CK-2) 2.4 ng/mL (0.0-4.0) 04/08/16 00:45 CK-MB (CK-2) Rel Index 0.8 (0-4) 04/08/16 00:45 Troponin T 3.100 ng/mL (0.00-0.029) H* 04/07/16 17:18 NT-Pro-B Natriuret Pep 1462 pg/mL (0-900) H 04/07/16 06:50
[2016-04-08] MEDS: HEPARIN SUB-Q SCH (22:17)
[2016-04-09] MEDS: LASIX IV SCH (05:51)
--- NOTE | 2016-04-09 09:45 | XRay Report ---
PORTABLE CHEST INDICATION: Heart failure. COMPARISON: 04/07/2016 FINDINGS: Portable, frontal chest radiograph now demonstrates smaller, normal cardiomediastinal silhouette and clear lungs. No pleural effusions or CHF. EKG leads. Stable bones and aortic knob calcifications. CONCLUSION: No acute chest process with interval resolution of pulmonary edema, as described. Thank you for the opportunity to participate in this patient's care.
[2016-04-09] MEDS ORDERED: COZAAR PO SCH (10:00)
[2016-04-09] MEDS: NOVOLOG SUB-Q SCH (10:26)
--- NOTE | 2016-04-09 10:26 | Progress Note ---
Assessment and Plan Acute diastolic heart failure clinically improving Echo 04/08/2016: EF 35-40%, mild MR continue lasix, coreg, losartan S/p recent NSTEMI and PCI of distal RCA continue ASA, Effient, Lipitor Coronary artery disease Hypertension Diabetes Stable cardiac status. The patient may be discharged home on the following medications: Lasix 40mg PO daily Aldactone 25mg PO daily Coreg 12.5mg PO BID Losartan 25mg PO daily Follow up appointment with Dr. Kaur in the [place] office on Friday, 04/12 at 3:30 pm. The patient has been seen in conjunction with Dr. Orozco who agrees with the assessment and plan of care. Subjective Date of service: 04/09/16 Principal diagnosis: acute diastolic heart failure Interval history: The patient is resting in bed. He feels much better today. No chest pain or shortness of breath. Sinus rhythm on the monitor. Objective Last Vital Signs Temp 98.6 F 04/09/16 07:10 Pulse 67 04/09/16 07:10 Resp 20 04/09/16 07:10 BP 123/64 04/09/16 07:10 Pulse Ox 97 04/09/16 07:10 - Physical Examination General: No Apparent Distress HEENT: Positive: Normocephaly, Mucus Membranes Moist Neck: Positive: neck supple, trachea midline Cardiac: Positive: Reg Rate and Rhythm, S1/S2 Lungs: Positive: clear to auscultation Neuro: Positive: Grossly Intact Abdomen: Positive: Soft, Active Bowel Sounds. Negative: Tender Skin: Positive: Clear. Negative: Rash Extremities: Present: normal. Absent: edema - Imaging and Cardiology EKG: image reviewed Echo: report reviewed (04/08/16: EF 35-40%, mild MR) - Telemetry EKG Rhythm: Sinus Rhythm
[2016-04-09] MEDS: ASPIRIN PO SCH (10:27)
[2016-04-09] MEDS: EFFIENT PO SCH (10:28)
[2016-04-09] MEDS: HABITROL TD SCH (10:28)
[2016-04-09] MEDS: PEPCID PO SCH (10:33)
[2016-04-09] MEDS: HEPARIN SUB-Q SCH (10:36)
[2016-04-09] MEDS ORDERED: ALDACTONE PO SCH (11:00)
[2016-04-09] MEDS ORDERED: COREG PO SCH (11:00)
[2016-04-09 11:54] VITALS: BP 108/60
--- NOTE | 2016-04-09 13:39 | Discharge Summary ---
Providers - Providers Date of Admission: 04/07/16 07:25 Attending physician: NOLA HAMM MD 04/07/16 10:13 Consult to Physician [CONS] Routine Consulting Provider: WILFRID CAROLINA Reason For Exam: [facility] Place consult to:: Angelique Carolina MD Notified:: yes Was contact made?: Yes If yes, spoke with:: Dr Carolina Time called:: 10:35 Comment:: on floor 04/07/16 10:14 Consult to Case Management [CONS] Routine Services Needed at Discharge: Other Notified:: case management Comment:: Effient drug card was . Primary care physician: SECURITY SERVICES SPECIALIST Hospitalization Condition: Fair Hospital course: This is a man with CAD status post recent PCI who presented with orthopnea and an exertion. Echocardiogram was done and showed a EF of 35-40%. He was treated with IV Lasix medication optimized, he clinically improved. He is given appointment for follow-up in cardiology clinic Discharge diagnoses 1. Acute exacerbation of systolic CHF 2. Coronary artery disease Disposition: DISCHARGED TO HOME OR SELFCARE Time spent for discharge: 35 minutes Core Measure Documentation - Palliative Care Palliative Care/ Comfort Measures: Not Applicable - Core Measures Any of the following diagnoses?: heart failure - Heart Failure Discharge Requirements YAMILKA/ARB for LVSD if EF <40%: Yes Beta saurabh at discharge: Yes Exam - Constitutional Vitals: Temp Pulse Resp BP Pulse Ox 97.5 F L 59 L 20 108/60 97 04/09/16 11:53 04/09/16 11:53 04/09/16 11:53 04/09/16 11:53 04/09/16 11:53 General appearance: Present: no acute distress, well-nourished - EENT Eyes: Present: PERRL ENT: hearing intact, clear oral mucosa - Neck Neck: Present: supple, normal ROM - Respiratory Respiratory effort: normal Respiratory: bilateral: CTA - Cardiovascular Heart Sounds: Present: S1 & S2. Absent: rub, click - Extremities Extremities: pulses symmetrical, No edema Peripheral Pulses: within normal limits - Abdominal General gastrointestinal: Present: soft, non-tender, non-distended, normal bowel sounds Male genitourinary: Present: normal - Integumentary Integumentary: Present: clear, warm, dry - Musculoskeletal Musculoskeletal: gait normal, strength equal bilaterally - Psychiatric Psychiatric: appropriate mood/affect, intact judgment & insight - Neurologic Neurologic: CNII-XII intact, moves all extremities Plan Follow up with: PRIMARY CARE, [Primary Care Provider] - 3-5 Days Forms: Work/School Release Form Prescriptions: Spironolactone [Aldactone] 25 mg PO QDAY #30 tablet Carvedilol [Coreg] 12.5 mg PO BID #60 tablet Losartan [Cozaar] 25 mg PO QDAY #30 tablet
== END 2016-04-09 14:57 | disposition home or self-care (01) | DRG 293 ==
LOC: ED 05:24 → 4A 07:25
PROVIDERS: ADMIT Internal Medicine; ATTEND Internal Medicine
DX: I11.0 Hypertensive heart disease with heart failure (principal); I50.31 Acute diastolic (congestive) heart failure; E11.9 Type 2 diabetes mellitus without complications; I10 Essential (primary) hypertension; I25.10 Atherosclerotic heart disease of native coronary artery without angina pectoris; F17.200 Nicotine dependence, unspecified, uncomplicated; E78.5 Hyperlipidemia, unspecified; E66.9 Obesity, unspecified; Z95.5 Presence of coronary angioplasty implant and graft; Z79.899 Other long term (current) drug therapy; Z79.82 Long term (current) use of aspirin; I25.2 Old myocardial infarction; Z82.49 Family history of ischemic heart disease and other diseases of the circulatory system; Z68.36 Body mass index [BMI] 36.0-36.9, adult
CPT/HCPCS: 36415; 71010; 80048; 82550; 82553; 82962; 83735; 83880; 84484; 85025; 85027; 93005; 93010; 93306; 94760; 96374; A9270-GY; J1644; J1940

== ENCOUNTER 2018-03-27 03:00 | Inpatient (IN) | payer SELFPAY ==
[2018-03-27] MEDS ORDERED: ASPIRIN PO ONE (04:16)
[2018-03-27 05:02] LABS: Basophils % (Auto) 0.2 % (0.0-1.8); Eosinophils # (Auto) 0.1 K/mm3 (0.0-0.4); Eosinophils % (Auto) 1.9 % (0.0-4.3); Hemoglobin 14.1 gm/dl (11.8-15.2); Lymphocytes # (Auto) 2.4 K/mm3 (1.2-5.4); Lymphocytes % (Auto) 32.9 % (13.4-35.0); Mean Corpuscular HGB Conc 32 % (32-34); Mean Corpuscular Hemoglobin 29 pg (28-32); Mean Corpuscular Volume 90 fl (84-94); Monocytes # (Auto) 0.7 K/mm3 (0.0-0.8); Monocytes % (Auto) 10.1 % (0.0-7.3); Platelet Count 167 K/mm3 (140-440); Red Blood Count 4.91 M/mm3 (3.65-5.03); Red Cell Distribution Width 16.6 % (13.2-15.2)
[2018-03-27 05:16] LABS: Calcium 8.9 mg/dL (8.4-10.2)
[2018-03-27] MEDS ORDERED: LASIX IV ONE (06:46)
[2018-03-27] MEDS ORDERED: NITROSTAT SL PRN (06:49)
[2018-03-27] MEDS ORDERED: APRESOLINE IV ONE (06:49)
--- NOTE | 2018-03-27 06:49 | Emergency Department Report ---
ED General Adult HPI - General Chief complaint: Chest Pain Stated complaint: CHEST PAIN Time Seen by Provider: 03/27/18 06:36 Source: patient, RN notes reviewed, old records reviewed Mode of arrival: Ambulatory Limitations: No Limitations - History of Present Illness Initial comments: Primary care Dr.: Dr. Candis Powell Past medical history: Congestive heart failure, ejection fraction 35-40%, heart disease, stent, obesity Patient reports he does not have a primary social group worker currently. Patient presents to the ER with a complaint of left-sided chest wall discomfort, lower extremity swelling, orthopnea, shortness of breath. The symptoms going on for the past 2 weeks. He denies DVT, pulmonary embolus risk factors. Shortness of breath worsens with laying flat, with physical exertion, decreases with rest, sitting up. Has mild headache. Requesting oxygen. No abdominal pain, hematemesis, bright red blood per rectum. Subjectively feels like patient has lost weight. -: Gradual Location: chest, left, right, lower extremity Radiation: non-radiation Severity scale (0 -10): 10 Quality: aching Consistency: intermittent Improves with: rest Worsens with: movement Associated Symptoms: chest pain, cough, headaches, loss of appetite, malaise, shortness of breath, weakness. denies: confusion, diaphoresis, fever/chills, nausea/vomiting, rash, seizure, syncope - Related Data Home Medications Medication Instructions Recorded Confirmed Last Taken Metformin HCl [Glucophage] 1,000 mg PO BID 04/04/16 04/07/16 Unknown Sitagliptin Phosphate [Januvia] 0 mg PO DAILY 04/04/16 04/07/16 Unknown Previous Rx's Medication Instructions Recorded Last Taken Type ALPRAZolam [Xanax TAB] 0.25 mg PO Q8H PRN #30 tablet 04/06/16 Unknown Rx Aspirin [Aspirin TAB] 325 mg PO QDAY #30 tablet 04/06/16 Unknown Rx AtorvaSTATin [Lipitor] 80 mg PO QHS #30 tablet 04/06/16 Unknown Rx HYDROcodone/APAP 5-325 [[place] 1 each PO Q6H PRN #30 tablet 04/06/16 Unknown Rx 5-325 mg TAB] Nicotine [Habitrol] 21 mg TD QDAY #14 patch 04/06/16 Unknown Rx Nitroglycerin [Nitrostat] 0.4 mg SL Q5M PRN #30 tab 04/06/16 Unknown Rx Prasugrel [Effient] 10 mg PO QDAY #30 tablet 04/06/16 Unknown Rx Zolpidem [Ambien] 5 mg PO QHS PRN #30 tablet 04/06/16 Unknown Rx Carvedilol [Coreg] 12.5 mg PO BID #60 tablet 04/09/16 Unknown Rx Losartan [Cozaar] 25 mg PO QDAY #30 tablet 04/09/16 Unknown Rx Spironolactone [Aldactone] 25 mg PO QDAY #30 tablet 04/09/16 Unknown Rx Allergies Allergy/AdvReac Type Severity Reaction Status Date / Time No Known Allergies Allergy Unverified 04/04/16 12:57 ED Review of Systems ROS: Stated complaint: CHEST PAIN Other details as noted in HPI Constitutional: malaise. denies: fever Eyes: denies: eye discharge ENT: congestion Respiratory: shortness of breath Cardiovascular: chest pain, edema Gastrointestinal: denies: nausea, vomiting, hematemesis, melena, hematochezia Genitourinary: denies: dysuria Musculoskeletal: arthralgia, myalgia Skin: denies: lesions Neurological: weakness Psychiatric: anxiety ED Past Medical Hx - Past Medical History Previous Medical History?: Yes Hx Hypertension: Yes Hx Heart Attack/AMI: No Hx Congestive Heart Failure: Yes Hx Diabetes: Yes Hx Asthma: No Hx HIV: No - Surgical History Past Surgical History?: Yes Additional Surgical History: Stent 04/05/16. back - Social History Smoking Status: Former Smoker Substance Use Type: None - Medications Home Medications: Home Medications Medication Instructions Recorded Confirmed Last Taken Type Metformin HCl [Glucophage] 1,000 mg PO BID 04/04/16 04/07/16 Unknown History Sitagliptin Phosphate [Januvia] 0 mg PO DAILY 04/04/16 04/07/16 Unknown History ALPRAZolam [Xanax TAB] 0.25 mg PO Q8H PRN #30 tablet 04/06/16 04/07/16 Unknown Rx Aspirin [Aspirin TAB] 325 mg PO QDAY #30 tablet 04/06/16 04/07/16 Unknown Rx AtorvaSTATin [Lipitor] 80 mg PO QHS #30 tablet 04/06/16 04/07/16 Unknown Rx HYDROcodone/APAP 5-325 [[place] 1 each PO Q6H PRN #30 tablet 04/06/16 04/07/16 Unknown Rx 5-325 mg TAB] Nicotine [Habitrol] 21 mg TD QDAY #14 patch 04/06/16 04/07/16 Unknown Rx Nitroglycerin [Nitrostat] 0.4 mg SL Q5M PRN #30 tab 04/06/16 04/07/16 Unknown Rx Prasugrel [Effient] 10 mg PO QDAY #30 tablet 04/06/16 04/07/16 Unknown Rx Zolpidem [Ambien] 5 mg PO QHS PRN #30 tablet 04/06/16 04/07/16 Unknown Rx Carvedilol [Coreg] 12.5 mg PO BID #60 tablet 04/09/16 Unknown Rx Losartan [Cozaar] 25 mg PO QDAY #30 tablet 04/09/16 Unknown Rx Spironolactone [Aldactone] 25 mg PO QDAY #30 tablet 04/09/16 Unknown Rx ED Physical Exam - General Limitations: No Limitations General appearance: alert, obese - Head Head exam: Present: atraumatic, normocephalic - Eye Eye exam: Present: normal appearance - ENT ENT exam: Present: normal exam, normal orophraynx, mucous membranes moist, normal external ear exam - Neck Neck exam: Present: normal inspection, full ROM. Absent: tenderness, meningismus - Respiratory Respiratory exam: Present: rales. Absent: respiratory distress - Cardiovascular Cardiovascular Exam: Present: regular rate, normal rhythm, normal heart sounds. Absent: bradycardia, tachycardia, irregular rhythm, systolic murmur, diastolic murmur, rubs, gallop - GI/Abdominal GI/Abdominal exam: Present: soft. Absent: distended, tenderness, guarding, rebound, rigid, pulsatile mass - Rectal Rectal exam: Present: deferred - Extremities Exam Extremities exam: Present: normal inspection, full ROM, pedal edema, other (2+ pulses noted in the bilateral upper, lower extremities. Compartments soft. No long bony tenderness. The pelvis is stable.). Absent: tenderness, calf tenderness - Back Exam Back exam: Present: normal inspection, full ROM. Absent: tenderness, CVA tenderness (R), paraspinal tenderness, vertebral tenderness - Neurological Exam Neurological exam: Present: alert, oriented X3, CN II-XII intact, other (Extraocular movements intact. Tongue midline. No facial droop. Facial sensation intact to light touch in the V1, V2, V3 distribution bilaterally. 5 and 5 strength in 4 extremities.. Sensation is intact to light touch in 4 extremities.). Absent: motor sensory deficit - Psychiatric Psychiatric exam: Present: normal affect, normal mood - Skin Skin exam: Present: warm, dry, intact, normal color. Absent: rash ED Course Vital Signs 03/27/18 03/27/18 03/27/18 03:05 04:13 05:22 Temperature 97.7 F 97.7 F Pulse Rate 99 H 95 H Respiratory 18 18 Rate Blood Pressure 196/122 Blood Pressure 196/122 [Right] O2 Sat by Pulse 95 99 98 Oximetry 03/27/18 03/27/18 03/27/18 05:25 05:30 05:46 Temperature Pulse Rate 98 H 94 H Respiratory 18 25 H 25 H Rate Blood Pressure 178/126 175/116 Blood Pressure [Right] O2 Sat by Pulse 96 94 Oximetry 03/27/18 03/27/18 03/27/18 06:00 06:16 06:30 Temperature Pulse Rate 91 H 98 H 86 Respiratory 33 H 14 30 H Rate Blood Pressure 184/132 165/115 171/119 Blood Pressure [Right] O2 Sat by Pulse 90 96 95 Oximetry 03/27/18 03/27/18 03/27/18 06:46 07:00 07:16 Temperature Pulse Rate 88 86 92 H Respiratory 18 17 31 H Rate Blood Pressure 179/113 166/112 172/108 Blood Pressure [Right] O2 Sat by Pulse 95 95 93 Oximetry 03/27/18 03/27/18 07:30 07:46 Temperature Pulse Rate 84 90 Respiratory 20 25 H Rate Blood Pressure 177/120 172/108 Blood Pressure [Right] O2 Sat by Pulse 99 90 Oximetry - Reevaluation(s) Reevaluation #1: 03/27/18 08:10 Differential diagnosis, including but not limited to: Congestive heart failure exacerbation, fluid overload, pulmonary hypertension, acute coronary syndrome Assessment and plan: 57-year-old gentleman with lower extremity swelling, hypoxia, rales, orthopnea, suspect decompensated congestive heart failure. Reports no pulmonary embolus or DVT risk factors and I find the patient to be low risk by well's criteria. Most likely has undiagnosed obstructive sleep apnea, probable pulmonary hypertension, and does not currently have a stone crusher operator or social group worker. A d-dimer was ordered by the nurse prior to my evaluation, based off of the history and physical, I think thromboembolic disease is quite unlikely. Has mild renal insufficiency, may be a component of mild cardiorenal syndrome. We will obtain bilateral lower extremity DVT study. Discussed with the social group worker to place a stent, Dr. Joy, who will see the patient in consultation, and agrees that d-dimer likely false positive, and agrees with decision to withhold systemic anticoagulation at this time. Discussed plan admission with the patient, who verbalized understanding and is amenable to this plan of care. Case presented to Hospital physician, Dr. Peng, who accepts the patient to the service of Dr. Hartmann, and requested a nuclear medicine study. I will defer to the inpatient team to follow up on results of nuclear medicine study, as well as lower extremity DVT study. ED Medical Decision Making - Lab Data Result diagrams: 03/27/18 04:26 03/27/18 04:26 Vital Signs 03/27/18 03/27/18 03/27/18 03:05 04:13 05:22 Temperature 97.7 F 97.7 F Pulse Rate 99 H 95 H Respiratory 18 18 Rate Blood Pressure 196/122 Blood Pressure 196/122 [Right] O2 Sat by Pulse 95 99 98 Oximetry 03/27/18 03/27/18 03/27/18 05:25 05:30 05:46 Temperature Pulse Rate 98 H 94 H Respiratory 18 25 H 25 H Rate Blood Pressure 178/126 175/116 Blood Pressure [Right] O2 Sat by Pulse 96 94 Oximetry 03/27/18 03/27/18 03/27/18 06:00 06:16 06:30 Temperature Pulse Rate 91 H 98 H 86 Respiratory 33 H 14 30 H Rate Blood Pressure 184/132 165/115 171/119 Blood Pressure [Right] O2 Sat by Pulse 90 96 95 Oximetry 03/27/18 03/27/18 03/27/18 06:46 07:00 07:16 Temperature Pulse Rate 88 86 92 H Respiratory 18 17 31 H Rate Blood Pressure 179/113 166/112 172/108 Blood Pressure [Right] O2 Sat by Pulse 95 95 93 Oximetry 03/27/18 03/27/18 07:30 07:46 Temperature Pulse Rate 84 90 Respiratory 20 25 H Rate Blood Pressure 177/120 172/108 Blood Pressure [Right] O2 Sat by Pulse 99 90 Oximetry Lab Results 03/27/18 03/27/18 03/27/18 Range/Units 04:26 04:26 04:26 WBC 7.4 (4.5-11.0) K/mm3 RBC 4.91 (3.65-5.03) M/mm3 Hgb 14.1 (11.8-15.2) gm/dl Hct 44.0 (35.5-45.6) % MCV 90 (84-94) fl MCH 29 (28-32) pg MCHC 32 (32-34) % RDW 16.6 H (13.2-15.2) % Plt Count 167 (140-440) K/mm3 Lymph % (Auto) 32.9 (13.4-35.0) % [place] % (Auto) 10.1 H (0.0-7.3) % Eos % (Auto) 1.9 (0.0-4.3) % Baso % (Auto) 0.2 (0.0-1.8) % Lymph # 2.4 (1.2-5.4) K/mm3 [place] # 0.7 (0.0-0.8) K/mm3 Eos # 0.1 (0.0-0.4) K/mm3 Baso # 0.0 (0.0-0.1) K/mm3 Seg Neutrophils % 54.9 (40.0-70.0) % Seg Neutrophils # 4.0 (1.8-7.7) K/mm3 D-Dimer (0-234) ng/mlDDU Sodium 142 (137-145) mmol/L Potassium 4.8 (3.6-5.0) mmol/L Chloride 106.0 (98-107) mmol/L Carbon Dioxide 24 (22-30) mmol/L Anion Gap 17 mmol/L BUN 21 H (9-20) mg/dL Creatinine 1.7 H (0.8-1.5) mg/dL Estimated GFR 51 ml/min BUN/Creatinine Ratio 12 % Glucose 115 H (75-100) mg/dL Calcium 8.9 (8.4-10.2) mg/dL Magnesium (1.7-2.3) mg/dL Total Creatine Kinase (55-170) units/L Troponin T 0.013 (0.00-0.029) ng/mL NT-Pro-B Natriuret Pep 4268 H (0-900) pg/mL 03/27/18 03/27/18 03/27/18 Range/Units 06:05 06:55 06:55 WBC (4.5-11.0) K/mm3 RBC (3.65-5.03) M/mm3 Hgb (11.8-15.2) gm/dl Hct (35.5-45.6) % MCV (84-94) fl MCH (28-32) pg MCHC (32-34) % RDW (13.2-15.2) % Plt Count (140-440) K/mm3 Lymph % (Auto) (13.4-35.0) % [place] % (Auto) (0.0-7.3) % Eos % (Auto) (0.0-4.3) % Baso % (Auto) (0.0-1.8) % Lymph # (1.2-5.4) K/mm3 [place] # (0.0-0.8) K/mm3 Eos # (0.0-0.4) K/mm3 Baso # (0.0-0.1) K/mm3 Seg Neutrophils % (40.0-70.0) % Seg Neutrophils # (1.8-7.7) K/mm3 D-Dimer 568.62 H (0-234) ng/mlDDU Sodium (137-145) mmol/L Potassium (3.6-5.0) mmol/L Chloride (98-107) mmol/L Carbon Dioxide (22-30) mmol/L Anion Gap mmol/L BUN (9-20) mg/dL Creatinine (0.8-1.5) mg/dL Estimated GFR ml/min BUN/Creatinine Ratio % Glucose (75-100) mg/dL Calcium (8.4-10.2) mg/dL Magnesium 2.00 (1.7-2.3) mg/dL Total Creatine Kinase 321 H (55-170) units/L Troponin T 0.021 (0.00-0.029) ng/mL NT-Pro-B Natriuret Pep (0-900) pg/mL - EKG Data -: EKG Interpreted by Me - EKG Data 03/27/18 08:12 EKG shows sinus, normal axis, QTC prolonged, atrial enlargement, poor R wave progression, left ventricular hypertrophy, not consistent with ST elevation myocardial infarction, appears grossly unchanged from prior EKG from 04/07/2016 - Radiology Data Radiology results: report reviewed, image reviewed - Medical Decision Making Differential diagnosis, including but not limited to: Congestive heart failure, pulmonary hypertension, obstructive sleep apnea, cardiorenal syndrome, dependent edema Critical care attestation.: If time is entered above; I have spent that time in minutes in the direct care of this critically ill patient, excluding procedure time. ED Disposition Clinical Impression: Acute congestive heart failure Disposition: DC-09 OP ADMIT IP TO THIS HOSP Is pt being admited?: Yes Condition: Good Referrals: PRIMARY CARE, [Primary Care Provider] - 3-5 Days
--- NOTE | 2018-03-27 07:13 | XRay Report ---
FINAL REPORT EXAM: XR CHEST 1V AP HISTORY: cp dyspnea TECHNIQUE: AP portable view(s) of the chest obtained. PRIORS: None. FINDINGS: No mediastinal shift. Cardiac silhouette is enlarged. No pneumothorax, effusion, or focal pulmonary o pacity identified. No acute skeletal findings. IMPRESSION: Enlarged cardiac silhouette may be due to heart failure or pericardial effusion. Follow-up echocardio gram is suggested if not previously performed. No acute pulmonary abnormalities are present.
[2018-03-27] MEDS ORDERED: TYLENOL PO ONE (07:30)
[2018-03-27] MEDS ORDERED: TYLENOL ONE (07:50)
--- NOTE | 2018-03-27 11:53 | Nuclear Medicine Report ---
LUNG SCAN, VENTILATION AND PERFUSION: History: Dyspnea. Technique: 5mci of Tc99m MAA was infused for the perfusion images. 15mci XE 133 gas was inhaled for the ventilatory images. Correlation is made with a chest x-ray dated 03/27/18. Findings: Inhalation of Xenon gas demonstrates a normal distribution of the activity throughout both lungs. The wash out phases show no focal retention of activity. After injection of Technetium 99m macroaggregated albumin gamma camera imaging of the lungs in multiple projections demonstrates normal pulmonary contours with a homogeneous distribution of activity. No focal areas of perfusion deficiency are identified. IMPRESSION: Low probability for pulmonary embolus.
--- NOTE | 2018-03-27 12:15 | History and Physical Report ---
History of Present Illness Date of examination: 03/27/18 Date of admission: 03/27/18 07:26 Chief complaint: SOB History of present illness: Patient was seen and examined. Follow-up on current diagnosis. Overnight uneventful. Patient denies any chest pain, shortness breath, nausea/vomiting or severe headaches. Imaging, nursing note, chart, labs and old chart reviewed. Discussed with patient. Past Medical History: other (as HPI) Past Surgical History: herniated disk repair, cardiac shent, partial brigde with teeth Social history: full code. quit smoking cigarettes 90 days ago, no alcohol abuse, no prescription drug abuse, no IV drug use Family history: CAD (brother just during this past [place] of a heart attack age 59 another brother had a VT age 59 also.), hypertension (mother's side), stroke (mother's side) ROS: Constitutional: denies: fever ENT: denies: throat or neck pain Respiratory: +: cough, shortness of breath Cardiovascular: + chest pain Endocrine: denies unexplained weight loss or gain Gastrointestinal: denies: abdominal pain, nausea Genitourinary: denies: dysuria Rectal: denies no incontinence, no bleeding, no itching, no discharge Musculoskeletal: +leg swelling, myaglia, muscle weakness Skin: denies: rash Neurological: denies: headache Hematological/Lymphatic: denies: easy bleeding or easy bruising Allergic/Immunologic: no urticaria, no allergic rhinitis, no anaphylaxis Psych: denies sadness or hopelessness, SI/HI Gen: WDWN, NAD, Awake, Alert, Orientated HEENT: NCAT, EOMI, PERRL, OP Clear Neck: supple, no adenopathy, no thyromegaly, no JVD CVS/Heart: RRR, normal S1S2, pulses present bilaterally Chest/Lungs: CTA B, Symmetrical chest expansion, good air entry bilaterally GI/Abdomen: soft, NTND, good bowel sounds, no guarding or rebound /Bladder: no suprapubic tenderness, no CVA or paraspinal tenderness Extermity/Skin: no c/c/e, no obvious rash MSK: FROM x 4 Neuro: CN 2-12 grossly intact, no new focal deficits Psych: calm Medications and Allergies Allergies Allergy/AdvReac Type Severity Reaction Status Date / Time No Known Allergies Allergy Unverified 04/04/16 12:57 Home Medications Medication Instructions Recorded Confirmed Last Taken Type Metformin HCl [Glucophage] 1,000 mg PO BID 04/04/16 03/27/18 1 Day Ago History ~03/26/18 Aspirin [Aspirin TAB] 325 mg PO QDAY #30 tablet 04/06/16 03/27/18 1 Day Ago Rx ~03/26/18 Nitroglycerin [Nitrostat] 0.4 mg SL Q5M PRN #30 tab 04/06/16 03/27/18 2 Days Ago Rx ~03/25/18 Carvedilol [Coreg] 6.25 mg PO BID 03/27/18 03/27/18 1 Day Ago History ~03/26/18 Gabapentin [Neurontin] 300 mg PO Q8HR 03/27/18 03/27/18 2 Days Ago History ~03/25/18 Losartan [Cozaar] 100 mg PO QDAY 03/27/18 03/27/18 1 Day Ago History ~03/26/18 Pregabalin [Lyrica] 75 mg PO BID 03/27/18 03/27/18 1 Day Ago History ~03/26/18 Active Meds: Active Medications Nitroglycerin (Nitrostat) 0.4 mg SL .Q5MIN PRN PRN Reason: Chest Pain Exam - Constitutional Vitals: Temp Pulse Resp BP Pulse Ox 97.7 F 88 27 H 74/21 100 03/27/18 04:13 03/27/18 08:00 03/27/18 08:00 03/27/18 09:00 03/27/18 09:00 Results - Labs CBC & Chem 7: 03/27/18 04:26 03/27/18 04:26 Labs: Abnormal lab results 03/27/18 03/27/18 03/27/18 Range/Units 04:26 04:26 04:26 RDW 16.6 H (13.2-15.2) % [place] % (Auto) 10.1 H (0.0-7.3) % D-Dimer (0-234) ng/mlDDU BUN 21 H (9-20) mg/dL Creatinine 1.7 H (0.8-1.5) mg/dL Glucose 115 H (75-100) mg/dL Total Creatine Kinase (55-170) units/L NT-Pro-B Natriuret Pep 4268 H (0-900) pg/mL 03/27/18 03/27/18 Range/Units 06:05 06:55 RDW (13.2-15.2) % [place] % (Auto) (0.0-7.3) % D-Dimer 568.62 H (0-234) ng/mlDDU BUN (9-20) mg/dL Creatinine (0.8-1.5) mg/dL Glucose (75-100) mg/dL Total Creatine Kinase 321 H (55-170) units/L NT-Pro-B Natriuret Pep (0-900) pg/mL Assessment and Plan 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 There is no relieving factor to the sob but the iv lasix is helping and he is diuresing well. SOB is aggravated by activity. He admits to being out of medication x 2 weeks. -Acute on chronic combined heart failure: treat with iv lasix, consult Cardiology, get ECHO -Acute hypoxic respiratory failure suspected, helped with O2: continue O2 support, check pulse ox or abg -Accelerated hypertension with urgency/malignancy: add ntg to current regimen -Chest pains with h/o CAD s/p shent: consult Cardiology -Elevated D-Dimer, V/Q reported low probability with low suspicion: continue to monitor -TO, atn+vasomotor nephropathy, poa, last cr in 2017 was 1.4, now 1.7: treat the heart failure, hold vane/arb, hold metformin -Tobacco dependency: counseled on stopping. -Type 2 DM: hold metformin, treat with ssi, ada diet, check a1c -Noncompliance with medications: securities counselor on compliance -DVT prophylaxis: sq heparin full code CCT 32 minutes
[2018-03-27] MEDS ORDERED: D50W (25GM) Syringe IV PRN (12:21)
[2018-03-27] MEDS ORDERED: TYLENOL PO PRN (12:29)
[2018-03-27] MEDS ORDERED: AMBIEN PO PRN (12:29)
[2018-03-27] MEDS ORDERED: APRESOLINE IV PRN (12:29)
[2018-03-27] MEDS ORDERED: ZOFRAN IV PRN (12:29)
[2018-03-27] MEDS: APRESOLINE PO SCH ×3 (14:51→23:00)
[2018-03-27] MEDS: IMDUR PO SCH (14:53)
[2018-03-27] MEDS: NEURONTIN PO SCH ×2 (14:54→22:58)
[2018-03-27] MEDS: ASPIRIN PO SCH (14:55)
[2018-03-27] MEDS: COREG PO SCH ×2 (14:55→22:59)
[2018-03-27] MEDS: NORCO 5/325 PO PRN ×2 (15:04→22:58)
--- NOTE | 2018-03-27 16:08 | Event Note ---
Date: 03/27/18 Cardiology note dictated. #1 congestive heart failure acute on chronic systolic heart failure #2 hypertension #3 coronary artery disease status post N STEMI followed by LESLY to RCA May 2016 #4 history of chronic smoking Patient is seen for cardiac evaluation. He is responding to current management. Continue current treatment patient will be followed along with you Thank you Dr. CRISTY Crenshaw
[2018-03-27] MEDS: HumaLOG SUB-Q SCH ×2 (16:19→23:00)
[2018-03-27] MEDS: LASIX IV SCH (18:17)
[2018-03-28] MEDS: NORCO 5/325 PO PRN (03:19)
[2018-03-28] MEDS: LASIX IV SCH (06:40)
[2018-03-28] MEDS: APRESOLINE PO SCH (06:40)
[2018-03-28] MEDS: NEURONTIN PO SCH ×2 (06:41→13:00)
[2018-03-28 07:02] LABS: Hemoglobin 13.3 gm/dl (11.8-15.2); Mean Corpuscular HGB Conc 32 % (32-34); Mean Corpuscular Hemoglobin 28 pg (28-32); Mean Corpuscular Volume 89 fl (84-94); Platelet Count 160 K/mm3 (140-440); Red Cell Distribution Width 17.1 % (13.2-15.2)
[2018-03-28 07:37] LABS: Calcium 8.5 mg/dL (8.4-10.2)
[2018-03-28 07:59] LABS: Chol/HDL Ratio 3.03 %
[2018-03-28] MEDS: IMDUR PO SCH (09:10)
[2018-03-28] MEDS: ASPIRIN PO SCH (09:11)
[2018-03-28] MEDS: HumaLOG SUB-Q SCH ×2 (09:11→12:52)
[2018-03-28] MEDS: COREG PO SCH (09:11)
--- NOTE | 2018-03-28 09:52 | Consultation ---
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 This has progressively worsened, initially it used to be waking him up in the middle of the night and bothering him more during the evening and nighttime. Lately even at work, he has noticed it and as it has been progressively worsening, the patient came to the Emergency Room. The patient is admitted with diagnosis of congestive heart failure. He received intravenous Lasix and at present after good diuresis, he does feel somewhat better. The patient denies any chest pain, no palpitations or other significant cardiac symptoms. The patient is known to have had hypertension for about 3-4 years, hyperlipidemia for about 1 year. I do not think he is very compliant with diet or with the medications. The patient is known to have had NSTEMI in 05/2016 and had a stent placement to RCA. His previous ejection fraction was apparently 35% to 40%. The patient used to smoke and stopped smoking about 2 months ago and he picked it back up, but however, he claims that for the past 1 month, he has not been smoking at all. Nonalcoholic. FAMILY HISTORY: Not contributory. REVIEW OF SYSTEMS: HEAD, EYES, EARS, NOSE AND THROAT: No symptoms. ENDOCRINE: History of type 2 diabetes. GASTROINTESTINAL: No abdominal pain, nausea, or vomiting. Bowel habits have been regular. GENITOURINARY: No symptoms. CENTRAL NERVOUS SYSTEM: No symptoms. LOCOMOTOR: He had cervical spine disease and had disk surgery about 20 years ago. HEMATOLOGY/ONCOLOGY: No symptoms. PHYSICAL EXAMINATION: GENERAL: Adult male, overweight, in no acute distress, pleasant and cooperative. VITAL SIGNS: Blood pressure is 157/100, pulse 94, respirations 18. HEAD, EYES, EARS, NOSE AND THROAT: Unremarkable. NECK: Supple. No thyromegaly. Both carotids are palpable and equal. Neck veins are flat. CHEST: Symmetrical. LUNGS: Essentially clear. HEART: S1 and S2 are heard well. No S3. ABDOMEN: Soft, nontender. No hepatosplenomegaly. Peristaltic sounds are heard well. EXTREMITIES: Mild edema is present. No calf tenderness. DIAGNOSTIC DATA: EKG sinus rhythm, left ventricular hypertrophy with associated ST-T changes. Chest x-ray, cardiomegaly with mild pulmonary vascular congestion. The patient had a V/Q scan, which is negative for pulmonary embolism. The patient had a Doppler study of the legs, which is negative for DVT. Echocardiogram is pending. LABORATORY DATA: Hemoglobin 14.1, hematocrit 44, WBC 7.4. D-dimer 568.62, BUN 21, creatinine 1.7, blood sugar 115. Troponin T 0.021 and 0.012. BNP 4268. IMPRESSION: 1. Congestive heart failure, probably acute on chronic systolic heart failure. 2. Coronary artery disease, status post drug-eluting stent to right coronary artery in 05/2016. 3. Hypertension. 4. Hyperlipidemia. 5. Diabetes. 6. Renal insufficiency. The patient is seen for cardiac evaluation. At present, he is responding to the current treatment. Dyspnea has improved with his diuresis. Echocardiogram is pending to assess his left ventricular function. Once the congestive heart failure improves, we will probably obtain a nuclear stress test for ischemic evaluation. This may even be accomplished as an outpatient. Echocardiogram is pending. The patient will be monitored and followed closely with you. I had a long discussion with the patient and his fiancee regarding him taking better care of himself and not resuming smoking and keep regular followup with his physicians. He has been noncompliant with the same in the past. He is also advised regular exercise and to be on a strict low sodium, low cholesterol, ADA diet. Thank you for allowing me to participate in the care of this pleasant gentleman. JOB# [id number] CATRACHO/LUIS
[2018-03-28] MEDS ORDERED: PROTONIX PO SCH (10:00)
--- NOTE | 2018-03-28 11:33 | Progress Note ---
Assessment and Plan acute on chronic shf respiratory failure non compliance cad htn chol acute on chronic renal insufficency rec: Changed to by mouth Lasix a.m. and Aldactone increased beta saurabh and hydralazine discussed with patient the importance class of medication and diet patient's EF has decrease from 35% done 15% no arrhythmias noted overnight Subjective Date of service: 03/28/18 Principal diagnosis: chf Interval history: sob has improved and swelling has improved Objective Vital Signs Temp Pulse Resp BP Pulse Ox 03/28/18 07:30 97.9 F 71 20 136/74 90 03/28/18 06:40 82 146/72 03/28/18 04:53 82 18 98 03/28/18 04:40 97.6 F 18 146/97 68 L 03/28/18 03:19 17 03/28/18 00:00 98 03/27/18 23:58 17 03/27/18 23:00 85 15 119/75 98 03/27/18 22:59 81 03/27/18 22:00 81 19 119/75 95 03/27/18 21:06 78 142/89 92 03/27/18 21:00 78 142/89 94 03/27/18 20:29 97.6 F 03/27/18 20:00 97 H 20 130/85 98 03/27/18 19:00 85 8 L 130/85 96 03/27/18 18:30 94 H 16 153/89 95 03/27/18 18:16 84 14 153/89 95 03/27/18 18:00 87 9 L 153/89 96 03/27/18 17:46 81 14 157/99 99 03/27/18 17:30 89 21 157/99 99 03/27/18 17:16 84 16 157/99 97 03/27/18 17:00 77 13 157/99 99 03/27/18 16:46 73 13 162/115 98 03/27/18 16:30 73 15 162/115 100 03/27/18 16:16 85 19 152/89 99 03/27/18 16:00 98 F 90 16 152/89 93 03/27/18 15:46 92 H 19 162/115 99 03/27/18 15:30 83 9 L 162/115 99 03/27/18 15:16 91 H 18 162/115 100 03/27/18 15:00 93 H 19 162/115 97 03/27/18 14:55 94 H 157/100 03/27/18 14:54 97 H 157/100 03/27/18 14:53 94 H 157/100 03/27/18 14:51 97 H 156/100 03/27/18 14:46 94 H 12 96 03/27/18 14:30 97 03/27/18 14:16 94 H 10 L 99 03/27/18 14:00 100 H 16 97 03/27/18 13:46 99 H 15 196/122 99 03/27/18 13:30 97 H 8 L 196/122 94 03/27/18 13:16 93 H 15 196/122 98 03/27/18 13:02 104 H 14 171/110 93 03/27/18 12:46 94 H 17 196/122 98 03/27/18 12:30 101 H 17 196/122 96 03/27/18 12:16 96 H 17 164/118 03/27/18 12:00 98.4 F 95 H 19 187/163 98 03/27/18 11:46 171/110 97 - Physical Examination General: Appears Well, No Apparent Distress HEENT: Positive: PERRL, EOMI Neck: Positive: neck supple Cardiac: Positive: Reg Rate and Rhythm Lungs: Positive: clear to auscultation Neuro: Positive: Grossly Intact Abdomen: Positive: Soft /Rectal: Normal Prostate, No Masses Skin: Musculoskeletal: No Fluid Collection, No Pain, Normal Range of Motion Gait: Normal Gait Extremities: Present: edema (trace) - Labs and Meds Lipids 03/28/18 Range/Units 04:28 Triglycerides 76 (2-149) mg/dL Cholesterol 97 (50-199) mg/dL HDL Cholesterol 32 L (40-59) mg/dL Cholesterol/HDL Ratio 3.03 % CBC 03/28/18 Range/Units 04:28 WBC 6.7 (4.5-11.0) K/mm3 RBC 4.70 (3.65-5.03) M/mm3 Hgb 13.3 (11.8-15.2) gm/dl Hct 42.0 (35.5-45.6) % Plt Count 160 (140-440) K/mm3 Comprehensive Metabolic Panel 03/28/18 Range/Units 04:28 Sodium 144 (137-145) mmol/L Potassium 4.0 (3.6-5.0) mmol/L Chloride 105.1 (98-107) mmol/L Carbon Dioxide 23 (22-30) mmol/L BUN 19 (9-20) mg/dL Creatinine 1.6 H (0.8-1.5) mg/dL Glucose 80 (75-100) mg/dL Calcium 8.5 (8.4-10.2) mg/dL - Imaging and Cardiology Echo: report reviewed (ef 15% no mr no as mild tr and normal rvsp ) Cardiac cath: report reviewed (03/2016 lt main patent, lad patent lcx 40% rca 100% pci of rca with [place] resolute 2.5 x 30 mm distal rca) - Telemetry EKG Rhythm: Sinus Rhythm
[2018-03-28 11:37] VITALS: BP 141/71
[2018-03-28] MEDS ORDERED: ALDACTONE PO SCH (12:00)
[2018-03-28] MEDS ORDERED: COREG PO SCH (12:00)
[2018-03-28] MEDS ORDERED: HEPARIN SUB-Q SCH (12:29)
[2018-03-28] MEDS ORDERED: APRESOLINE PO SCH (14:00)
--- NOTE | 2018-03-28 15:04 | Progress Note ---
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 There is no relieving factor to the sob but the iv lasix is helping and he is diuresing well. SOB is aggravated by activity. He admits to being out of medication x 2 weeks. -Acute on chronic combined heart failure: treat with iv lasix, consult Cardiology, get ECHO -Acute hypoxic respiratory failure suspected, helped with O2: continue O2 support, check pulse ox or abg -Accelerated hypertension with urgency/malignancy: add ntg to current regimen -Chest pains with h/o CAD s/p shent: consult Cardiology -Elevated D-Dimer, V/Q reported low probability with low suspicion: continue to monitor -TO, atn+vasomotor nephropathy, poa, last cr in 2017 was 1.4, now 1.7: treat the heart failure, hold vane/arb, hold metformin -Tobacco dependency: counseled on stopping. -Type 2 DM: hold metformin, treat with ssi, ada diet, check a1c -Noncompliance with medications: cemetery counselor on compliance -DVT prophylaxis: sq heparin full code History Interval history: Review of systems Constitutional: No fevers, no malaise, no joint pains CVS: No chest pain, no orthopnea, no dyspnea on exertion, no pedal edema GI: No abdominal pain, no diarrhea, no vomiting, no constipation Respiratory: No shortness of breath, no wheezing, no coughing Hospitalist Physical - Physical exam Narrative exam: General.: Appears well, no distress, nontoxic HEENT: Moist mucous membranes, extraocular muscles intact, no lymphadenopathy Neck: supple Cardiac: S1-S2 heard Lungs: clear to auscultation bilaterally Abdomen: soft , nontender, nondistended, bowel sounds positive Extremities: no edema clubbing or cyanosis Skin: no rash or lesions Neurologic: no gross focal deficits Psych: appropriate behavior, appropriate mood, corporative, judgment intact - Constitutional Vitals: Temp Pulse Resp BP Pulse Ox 98.2 F 70 20 141/71 91 03/28/18 10:44 03/28/18 10:44 03/28/18 10:44 03/28/18 10:44 03/28/18 10:44 Results - Labs CBC & Chem 7: 03/28/18 04:28 03/28/18 04:28 Labs: Laboratory Last Values WBC 6.7 K/mm3 (4.5-11.0) 03/28/18 04:28 RBC 4.70 M/mm3 (3.65-5.03) 03/28/18 04:28 Hgb 13.3 gm/dl (11.8-15.2) 03/28/18 04:28 Hct 42.0 % (35.5-45.6) 03/28/18 04:28 MCV 89 fl (84-94) 03/28/18 04:28 MCH 28 pg (28-32) 03/28/18 04:28 MCHC 32 % (32-34) 03/28/18 04:28 RDW 17.1 % (13.2-15.2) H 03/28/18 04:28 Plt Count 160 K/mm3 (140-440) 03/28/18 04:28 Lymph % (Auto) 32.9 % (13.4-35.0) 03/27/18 04:26 [place] % (Auto) 10.1 % (0.0-7.3) H 03/27/18 04:26 Eos % (Auto) 1.9 % (0.0-4.3) 03/27/18 04:26 Baso % (Auto) 0.2 % (0.0-1.8) 03/27/18 04:26 Lymph # 2.4 K/mm3 (1.2-5.4) 03/27/18 04:26 [place] # 0.7 K/mm3 (0.0-0.8) 03/27/18 04:26 Eos # 0.1 K/mm3 (0.0-0.4) 03/27/18 04:26 Baso # 0.0 K/mm3 (0.0-0.1) 03/27/18 04:26 Seg Neutrophils % 54.9 % (40.0-70.0) 03/27/18 04:26 Seg Neutrophils # 4.0 K/mm3 (1.8-7.7) 03/27/18 04:26 D-Dimer 568.62 ng/mlDDU (0-234) H 03/27/18 06:05 Sodium 144 mmol/L (137-145) 03/28/18 04:28 Potassium 4.0 mmol/L (3.6-5.0) 03/28/18 04:28 Chloride 105.1 mmol/L (98-107) 03/28/18 04:28 Carbon Dioxide 23 mmol/L (22-30) 03/28/18 04:28 Anion Gap 20 mmol/L 03/28/18 04:28 BUN 19 mg/dL (9-20) 03/28/18 04:28 Creatinine 1.6 mg/dL (0.8-1.5) H 03/28/18 04:28 Estimated GFR 55 ml/min 03/28/18 04:28 BUN/Creatinine Ratio 12 % 03/28/18 04:28 Glucose 80 mg/dL (75-100) 03/28/18 04:28 POC Glucose 152 (70-105) H 03/28/18 10:45 Calcium 8.5 mg/dL (8.4-10.2) 03/28/18 04:28 Magnesium 2.00 mg/dL (1.7-2.3) 03/27/18 06:55 Total Creatine Kinase 321 units/L (55-170) H 03/27/18 06:55 Troponin T 0.012 ng/mL (0.00-0.029) 03/28/18 01:44 NT-Pro-B Natriuret Pep 4268 pg/mL (0-900) H 03/27/18 04:26 Triglycerides 76 mg/dL (2-149) 03/28/18 04:28 Cholesterol 97 mg/dL (50-199) 03/28/18 04:28 LDL Cholesterol Direct 59 mg/dL (50-130) 03/28/18 04:28 HDL Cholesterol 32 mg/dL (40-59) L 03/28/18 04:28 Cholesterol/HDL Ratio 3.03 % 03/28/18 04:28 TSH 1.890 mlU/mL (0.270-4.200) 03/28/18 04:28
--- NOTE | 2018-03-28 15:06 | Discharge Summary ---
Providers - Providers Date of Admission: 03/27/18 07:26 Attending physician: NOLA HAMM MD 03/27/18 06:47 Consult to Physician [CONS] Urgent Comment: Dr. Anderson spoke with Dr. 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 He admitted to running out of medications for over 2 weeks -He was diuresed, his medications were optimized. Required oxygen shortly before wasn't enough oxygen as he was diuresed. He received cardiology consult, his medications were optimized. -He suffered acute kidney injury that actually improved with diuresis, YAMILKA inhibitor was held. -He was counseled on tobacco cessation, he was also counseled on improved adherence to his medications. -There was suspicion of the VTE therefore patient had V/Q scan which was negative -His medications optimized for his chronic conditions Diagnoses Acute on chronic combined heart failure Acute hypoxic respiratory failure Acute kidney injury due to vasomotor nephropathy Tobacco abuse and dependency Type 2 diabetes Nonadherence to medications Disposition: DC-01 TO HOME OR SELFCARE Time spent for discharge: 33 minutes Core Measure Documentation - Palliative Care Palliative Care/ Comfort Measures: Not Applicable - Core Measures Any of the following diagnoses?: heart failure - Heart Failure Discharge Requirements YAMILKA/ARB for LVSD if EF <40%: Not Applicable Reason for no YAMILKA/ARB: Renal impairment Beta saurabh at discharge: Yes Exam - Constitutional Vitals: Temp Pulse Resp BP Pulse Ox 98.2 F 70 20 141/71 91 03/28/18 10:44 03/28/18 10:44 03/28/18 10:44 03/28/18 10:44 03/28/18 10:44 General appearance: Present: no acute distress, well-nourished - EENT Eyes: Present: PERRL ENT: hearing intact, clear oral mucosa - Neck Neck: Present: supple, normal ROM - Respiratory Respiratory effort: normal Respiratory: bilateral: CTA - Cardiovascular Heart Sounds: Present: S1 & S2. Absent: rub, click - Extremities Extremities: pulses symmetrical, No edema Peripheral Pulses: within normal limits - Abdominal General gastrointestinal: Present: soft, non-tender, non-distended, normal bowel sounds Male genitourinary: Present: normal - Integumentary Integumentary: Present: clear, warm, dry - Musculoskeletal Musculoskeletal: gait normal, strength equal bilaterally - Psychiatric Psychiatric: appropriate mood/affect, intact judgment & insight - Neurologic Neurologic: CNII-XII intact, moves all extremities Plan Follow up with: PRIMARY CARE,MD [Primary Care Provider] - 3-5 Days Prescriptions: Furosemide [Lasix TAB] 40 mg PO QDAY #30 tablet hydrALAZINE [Apresoline TAB] 50 mg PO Q8HR 30 Days tablet ISOSORBIDE MONOnitrate [Imdur ER] 30 mg PO QDAY #30 tablet Spironolactone [Aldactone] 25 mg PO QDAY #30 tablet
[2018-03-29] MEDS ORDERED: LASIX PO SCH (10:00)
== END 2018-03-28 17:36 | disposition home or self-care (01) | DRG 291 ==
LOC: ED 03:00 → IMCU 07:26 → 4A 03-28 01:23
PROVIDERS: ADMIT Internal Medicine; ATTEND Internal Medicine
DX: I13.0 Hypertensive heart and chronic kidney disease with heart failure and stage 1 through stage 4 chronic kidney disease, or unspecified chronic kidney disease (principal); J96.01 Acute respiratory failure with hypoxia; I50.43 Acute on chronic combined systolic (congestive) and diastolic (congestive) heart failure; N17.0 Acute kidney failure with tubular necrosis; E11.9 Type 2 diabetes mellitus without complications; I25.10 Atherosclerotic heart disease of native coronary artery without angina pectoris; N18.9 Chronic kidney disease, unspecified; E78.5 Hyperlipidemia, unspecified; F17.200 Nicotine dependence, unspecified, uncomplicated; I16.0 Hypertensive urgency; I25.2 Old myocardial infarction; Z95.5 Presence of coronary angioplasty implant and graft; Z71.6 Tobacco abuse counseling; Z91.19 Patient's noncompliance with other medical treatment and regimen; Z91.14 Patient's other noncompliance with medication regimen; Z82.49 Family history of ischemic heart disease and other diseases of the circulatory system; Z82.3 Family history of stroke
CPT/HCPCS: 36415; 71045; 78582; 80048; 80061; 82550; 82962; 83735; 83880; 84443; 84484; 85025; 85027; 85379; 93005; 93010; 93306; 93970; G0378; A9540; A9558; J0360; J1644; J1940

== ENCOUNTER 2020-01-19 05:39 | Inpatient (IN) | payer BC, OTHER ==
[2020-01-19] MEDS ORDERED: ASPIRIN 325 MG TAB PO ONE (05:52)
[2020-01-19 06:16] LABS: Basophils % (Auto) 0.5 % (0.0-1.8); Eosinophils # (Auto) 0.1 K/mm3 (0.0-0.4); Eosinophils % (Auto) 1.7 % (0.0-4.3); Hematocrit 36.4 % (35.5-45.6); Hemoglobin 11.7 gm/dl (11.8-15.2); Lymphocytes # (Auto) 1.8 K/mm3 (1.2-5.4); Lymphocytes % (Auto) 30.2 % (13.4-35.0); Mean Corpuscular HGB Conc 32 % (32-34); Mean Corpuscular Volume 85 fl (84-94); Monocytes # (Auto) 0.5 K/mm3 (0.0-0.8); Monocytes % (Auto) 9.1 % (0.0-7.3); Platelet Count 192 K/mm3 (140-440); Red Blood Count 4.27 M/mm3 (3.65-5.03); Red Cell Distribution Width 17.3 % (13.2-15.2)
[2020-01-19] MEDS ORDERED: NITROGLYCERIN 2% OINT 1 GM TP ONE ×2 (06:19)
--- NOTE | 2020-01-19 06:22 | Emergency Department Report ---
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 He states he has had chest pain for 2 days which he describes as anterior anterior tightness. He has accompanying shortness of breath which appears to be more prominent symptom than his chest pain. He is concerned that he is having re current symptoms similar to his acute coronary syndrome prior to stenting. He did not mention to me his negative cath in May when he was admitted with the symptoms as below described. He denies cough fever or chills. He did not take his blood pressure medication this a.m. Reviewing his prior records he does have a history of noncompliance and at least previous nicotine dependency. 05/20 Discharge Summary: 58-year-old man who presents to the hospital complaining of orthopnea and lower extremity swelling. Acute systolic CHF, EF 30% sp IV diuresis, cath shows nonobstructive disease -Etiology of CHF is likely longstanding uncontrolled hypertension and patient's noncompliance with BP meds, and low salt diet -History of CAD status post stents, continue asa, bb, vane Nonadherence to meds; patient stated that he never took the Lasix at home because he did not believe the pills work. Preventative health counseling performed for 17 minutes Hypertensive urgency; BP meds optmized Tobacco abuse/dependence Smoking cessation counseling performed for 10 minutes, nicotine patches when necessary Dvt ppx lovenox Disposition: - TO HOME OR SELFCARE Time spent for discharge: 33 mins Complaint: chest pain -: days(s) (2) Onset: during rest Pain Location: substernal Pain Radiation: none Severity: moderate Quality: tightness Consistency: intermittent Improves With: nothing Worsens With: nothing Context: other (History of PCI) re: nausea, dyspnea. denies: vomting, diaphoresis Other Symptoms: denies: cough, fever, syncope Treatments Prior to Arrival: none - Related Data Home Medications Medication Instructions Recorded Confirmed Last Taken Metformin HCl [Glucophage] 1,000 mg PO BID 04/04/16 05/05/19 1 Day Ago ~03/26/18 Gabapentin 300 mg PO Q8HR 03/27/18 05/05/19 2 Days Ago ~03/25/18 Pregabalin 75 mg PO BID 03/27/18 05/05/19 1 Day Ago ~03/26/18 Previous Rx's Medication Instructions Recorded Last Taken Type Aspirin EC [Halfprin EC] 81 mg PO QDAY #90 tablet. 05/08/19 Unknown Rx Furosemide [Lasix TAB] 40 mg PO 0600,1800 #60 tablet 05/08/19 Unknown Rx ISOSORBIDE MONOnitrate [Imdur ER] 30 mg PO QDAY #30 tablet 05/08/19 Unknown Rx Nicotine [Habitrol] 14 mg TD QDAY #30 patch 05/08/19 Unknown Rx Nitroglycerin [Nitrostat] 0.4 mg SL Q5M PRN #30 tab 05/08/19 Unknown Rx Spironolactone [Aldactone] 25 mg PO QDAY #30 tablet 05/08/19 Unknown Rx carvediloL [Coreg] 12.5 mg PO BID #60 tablet 05/08/19 Unknown Rx hydrALAZINE [Apresoline TAB] 50 mg PO Q8HR 30 Days #180 tablet 05/08/19 Unknown Rx lisinopriL [Zestril TAB] 20 mg PO QDAY #30 tablet 05/08/19 Unknown Rx Allergies Allergy/AdvReac Type Severity Reaction Status Date / Time No Known Allergies Allergy Unverified 04/04/16 12:57 Heart Score - HEART Score History: Highly suspicious EKG: Non-specific Age: 45-65 Risk factors: > 3 risk factors or hx of atherosclerotic disease Troponin: < normal limit HEART Score: 6 - Critical Actions Critical Actions: 0-3 pts:0.9-1.7%risk of adverse cardiac event.Candidate for discharge ED Review of Systems ROS: Stated complaint: CHEST PAIN Other details as noted in HPI Constitutional: denies: chills, fever Eyes: denies: eye pain, eye discharge, vision change ENT: denies: ear pain, throat pain Respiratory: shortness of breath. denies: cough, wheezing Cardiovascular: chest pain. denies: palpitations Endocrine: no symptoms reported Gastrointestinal: nausea. denies: abdominal pain, diarrhea Genitourinary: denies: urgency, dysuria Musculoskeletal: denies: back pain, joint swelling, arthralgia Skin: denies: rash, lesions Neurological: denies: headache, weakness, paresthesias Psychiatric: denies: anxiety, depression Hematological/Lymphatic: denies: easy bleeding, easy bruising ED Past Medical Hx - Past Medical History Hx Hypertension: Yes Hx Heart Attack/AMI: No Hx Congestive Heart Failure: Yes Hx Diabetes: Yes Hx Asthma: No Hx COPD: No Hx HIV: No - Surgical History Hx Coronary Stent: Yes Additional Surgical History: Stent 04/05/16. back - Social History Smoking Status: Former Smoker - Medications Home Medications: Home Medications Medication Instructions Recorded Confirmed Last Taken Type Metformin HCl [Glucophage] 1,000 mg PO BID 04/04/16 05/05/19 1 Day Ago History ~03/26/18 Gabapentin 300 mg PO Q8HR 03/27/18 05/05/19 2 Days Ago History ~03/25/18 Pregabalin 75 mg PO BID 03/27/18 05/05/19 1 Day Ago History ~03/26/18 Aspirin EC [Halfprin EC] 81 mg PO QDAY #90 tablet. 05/08/19 Unknown Rx Furosemide [Lasix TAB] 40 mg PO 0600,1800 #60 tablet 05/08/19 Unknown Rx ISOSORBIDE MONOnitrate [Imdur ER] 30 mg PO QDAY #30 tablet 05/08/19 Unknown Rx Nicotine [Habitrol] 14 mg TD QDAY #30 patch 05/08/19 Unknown Rx Nitroglycerin [Nitrostat] 0.4 mg SL Q5M PRN #30 tab 05/08/19 Unknown Rx Spironolactone [Aldactone] 25 mg PO QDAY #30 tablet 05/08/19 Unknown Rx carvediloL [Coreg] 12.5 mg PO BID #60 tablet 05/08/19 Unknown Rx hydrALAZINE [Apresoline TAB] 50 mg PO Q8HR 30 Days #180 tablet 05/08/19 05/05/19 Unknown Rx lisinopriL [Zestril TAB] 20 mg PO QDAY #30 tablet 05/08/19 Unknown Rx ED Physical Exam - General Limitations: No Limitations General appearance: alert, in no apparent distress - Head Head exam: Present: atraumatic, normocephalic - Eye Eye exam: Present: normal appearance. Absent: scleral icterus - ENT ENT exam: Present: mucous membranes moist - Neck Neck exam: Present: normal inspection - Respiratory Respiratory exam: Present: normal lung sounds bilaterally. Absent: respiratory distress - Cardiovascular Cardiovascular Exam: Present: regular rate, normal rhythm. Absent: systolic m urmur, diastolic murmur, rubs, gallop - GI/Abdominal GI/Abdominal exam: Present: soft, normal bowel sounds. Absent: distended, tenderness, guarding, rebound - Rectal Rectal exam: Present: deferred - Extremities Exam Extremities exam: Present: normal inspection. Absent: pedal edema, joint swelling, calf tenderness - Back Exam Back exam: Present: normal inspection - Neurological Exam Neurological exam: Present: alert, oriented X3, CN II-XII intact. Absent: motor sensory deficit - Psychiatric Psychiatric exam: Present: normal affect, normal mood - Skin Skin exam: Present: warm, dry, intact, normal color. Absent: rash ED Course Vital Signs 01/19/20 01/19/20 01/19/20 05:51 06:07 06:15 Pulse Rate 79 70 Respiratory 18 38 H 16 Rate Blood Pressure 178/90 Blood Pressure 158/90 [Left] O2 Sat by Pulse 97 100 Oximetry 01/19/20 01/19/20 01/19/20 06:16 06:25 06:30 Pulse Rate 70 70 Respiratory 16 27 H Rate Blood Pressure 158/90 158/92 Blood Pressure [Left] O2 Sat by Pulse 100 Oximetry 01/19/20 01/19/20 07:00 07:30 Pulse Rate 71 Respiratory 17 Rate Blood Pressure 165/108 171/98 Blood Pressure [Left] O2 Sat by Pulse 99 99 Oximetry - Reevaluation(s) Reevaluation #1: Blood pressure management. Morphine for pain. Initial work-up reveals negative troponin and a reassuring EKG. Chest x-ray demonstrates cardiomegaly without decompensation. BNP was elevated. There is a mild increase in the patient's creatinine of 1.3-1.5. There is very slight elevation of the D-dimer. I am going to defer to the hospitalist staff as to possible indications for further work-up of that finding. Cardiology consultation. Serial EKG shows no evidence of acute ischemia. 01/19/20 08:58 01/19/20 09:07 KATHARINE score - Katharine Score Age > 65: (0) No Aspirin use within the Past 7 Days: (0) No 3 or more CAD Risk Factors: (1) Yes 2 or more Angina events in past 24 hrs: (1) Yes Known CAD with more than 50% Stenosis: (0) No Elevated Cardiac Markers: (0) No ST Deviation Greater than 0.5mm: (0) No KATHARINE Score: 2 ED Medical Decision Making - Lab Data Result diagrams: 01/19/20 05:53 01/19/20 05:53 Laboratory Results - last 24 hr 01/19/20 01/19/20 01/19/20 05:53 05:53 05:53 WBC 5.9 RBC 4.27 Hgb 11.7 L Hct 36.4 MCV 85 MCH 28 MCHC 32 RDW 17.3 H Plt Count 192 Lymph % (Auto) 30.2 [place] % (Auto) 9.1 H Eos % (Auto) 1.7 Baso % (Auto) 0.5 Lymph # (Auto) 1.8 [place] # (Auto) 0.5 Eos # (Auto) 0.1 Baso # (Auto) 0.0 Seg Neutrophils % 58.5 Seg Neutrophils # 3.5 PT 15.6 H INR 1.21 H APTT 27.4 D-Dimer 293.57 H Sodium 140 Potassium 4.3 Chloride 106.2 Carbon Dioxide 20 L Anion Gap 18 BUN 23 H Creatinine 1.5 H Estimated GFR 58 BUN/Creatinine Ratio 15 Glucose 136 H Calcium 9.1 Magnesium Total Bilirubin Direct Bilirubin Indirect Bilirubin AST ALT Alkaline Phosphatase Total Creatine Kinase CK-MB (CK-2) CK-MB (CK-2) Rel Index Troponin T < 0.010 NT-Pro-B Natriuret Pep Total Protein Albumin Albumin/Globulin Ratio 01/19/20 05:53 WBC RBC Hgb Hct MCV MCH MCHC RDW Plt Count Lymph % (Auto) [place] % (Auto) Eos % (Auto) Baso % (Auto) Lymph # (Auto) [place] # (Auto) Eos # (Auto) Baso # (Auto) Seg Neutrophils % Seg Neutrophils # PT INR APTT D-Dimer Sodium Potassium Chloride Carbon Dioxide Anion Gap BUN Creatinine Estimated GFR BUN/Creatinine Ratio Glucose Calcium Magnesium 2.10 Total Bilirubin 0.60 Direct Bilirubin < 0.2 Indirect Bilirubin 0.4 AST 22 ALT 35 Alkaline Phosphatase 50 Total Creatine Kinase 158 CK-MB (CK-2) 3.1 CK-MB (CK-2) Rel Index 1.9 Troponin T NT-Pro-B Natriuret Pep 2567 H Total Protein 6.6 Albumin 3.8 L Albumin/Globulin Ratio 1.4 - EKG Data -: EKG Interpreted by Me EKG shows normal: sinus rhythm, axis, intervals, ST-T waves Rate: normal - EKG Data Interpretation: no acute changes, LVH Left atrial abnormality. No evidence of acute ischemia 01/19/20 09:00 - Radiology Data Radiology results: report reviewed, image reviewed Critical care attestation.: If time is entered above; I have spent that time in minutes in the direct care of this critically ill patient, excluding procedure time. ED Disposition Clinical Impression: Uncontrolled stage 2 hypertension, Chronic renal insufficiency, stage II (mild) Chest pain Qualifiers: Chest pain type: unspecified Qualified Code(s): R07.9 - Chest pain, unspecified Type 2 diabetes mellitus Qualifiers: Diabetes mellitus fci insulin use: unspecified terminal manager insulin use status Diabetes mellitus complication status: without complication Qualified Code(s): E11.9 - Type 2 diabetes mellitus without complications Disposition: OP ADMIT IP TO THIS HOSP Is pt being admited?: Yes Does the pt Need Aspirin: Yes Condition: Stable Instructions: Chest Pain (ED), Hypertension (ED), Diabetes Mellitus Type 2 in Adults (ED) Referrals: PRIMARY CARE, [Primary Care Provider] - 3-5 Days Time of Disposition: 09:09
--- NOTE | 2020-01-19 06:30 | XRay Report ---
CHEST 1 VIEW INDICATION / CLINICAL INFORMATION: Chest Pain. COMPARISON: 05/05/2019 FINDINGS: SUPPORT DEVICES: None. HEART / MEDIASTINUM: There is enlargement of the cardiac silhouette LUNGS / PLEURA: No significant pulmonary or pleural abnormality.. No pneumothorax. ADDITIONAL FINDINGS: No significant additional findings. IMPRESSION: 1. No acute findings. Signer Name: Howard Blake MD Signed: 01/19/2020 6:25 AM Workstation Name: [id number]
[2020-01-19 07:01] LABS: INR 1.21 (0.87-1.13); Partial Thromboplastin Time 27.4 Sec. (24.2-36.6)
[2020-01-19 07:28] LABS: BUN/Creatinine Ratio 15; Blood Urea Nitrogen 23 mg/dL (9-20); Calcium 9.1 mg/dL (8.4-10.2); Hemolysis Index 9
[2020-01-19 07:53] LABS: Creatine Kinase MB 3.1 ng/mL (0.0-4.0)
[2020-01-19 07:57] LABS: Alanine Aminotransferase 35 units/L (7-56); Albumin 3.8 g/dL (3.9-5)
[2020-01-19 08:01] LABS: Bilirubin,Direct < 0.2 mg/dL (0-0.2)
[2020-01-19] MEDS ORDERED: MORPHINE 2 MG/1 ML INJ IV ONE (08:22)
--- NOTE | 2020-01-19 10:26 | Consultation ---
History of Present Illness Consult date: 01/19/20 Requesting physician: DANA BRANHAM Consult reason: chest pain History of present illness: The pt is a 59-year-old -[place] male, who is an employee here, with a past medical history of CAD s/p PCI in 2017, CMP, HFrEF, HTN, HLP, obesity, former tobacco use. He is followed in our office by Dr. CRISTY Crenshaw (last seen in office 12/2018). He presented with c/o chest pain and SOB for approx 2 days prior to arrival. He describes his chest pain as a constant anterior tightness with no clear aggravating or alleviating factors. He denies any palpitations, n/v, diaphoresis, dizziness or syncope. He admits that he stopped taking Lasix several months ago because his BLE swelling resolved. LHC done 05/2019 showed moderate nonobstructive CAD w/ patent dRCA stent (right dominant), severe global LV hypokinesis (30-35%) LHC 03/2016 with PCI of distal RCA, 40% smooth lesion in distal circ. Echo done 05/2019 showed EF 25-30%, RA mildly dilated, LV mod dilated. Echo done 11/2018 showed EF 55-60%, basal septum hypokinetic, LA enlarged, RA mildly dilated, trace MR. Echo done 02/2018 showed EF 15-20%, mild LVH, LA mild to mod dilated, RV slightly dilated, RA mildly dilated. Past History Past Medical History: other (as per HPI) Medications and Allergies Allergies Allergy/AdvReac Type Severity Reaction Status Date / Time No Known Allergies Allergy Unverified 04/04/16 12:57 Home Medications Medication Instructions Recorded Confirmed Last Taken Type Metformin HCl [Glucophage] 1,000 mg PO BID 04/04/16 05/05/19 1 Day Ago History ~03/26/18 Gabapentin 300 mg PO Q8HR 03/27/18 05/05/19 2 Days Ago History ~03/25/18 Pregabalin 75 mg PO BID 03/27/18 05/05/19 1 Day Ago History ~03/26/18 Aspirin EC [Halfprin EC] 81 mg PO QDAY #90 tablet. 05/08/19 Unknown Rx Furosemide [Lasix TAB] 40 mg PO 0600,1800 #60 tablet 05/08/19 Unknown Rx ISOSORBIDE MONOnitrate [Imdur ER] 30 mg PO QDAY #30 tablet 05/08/19 Unknown Rx Nicotine [Habitrol] 14 mg TD QDAY #30 patch 05/08/19 Unknown Rx Nitroglycerin [Nitrostat] 0.4 mg SL Q5M PRN #30 tab 05/08/19 Unknown Rx Spironolactone [Aldactone] 25 mg PO QDAY #30 tablet 05/08/19 Unknown Rx carvediloL [Coreg] 12.5 mg PO BID #60 tablet 05/08/19 Unknown Rx hydrALAZINE [Apresoline TAB] 50 mg PO Q8HR 30 Days #180 tablet 05/08/19 05/05/19 Unknown Rx lisinopriL [Zestril TAB] 20 mg PO QDAY #30 tablet 05/08/19 Unknown Rx Review of Systems Constitutional: no fever, no chills, no sweats Ears, nose, mouth and throat: no ear pain, no nose pain, no sinus pressure, no sinus pain Cardiovascular: chest pain, shortness of breath, dyspnea on exertion, no orthopnea, no palpitations, no rapid/irregular heart beat, no edema, no syncope, no lightheadedness Respiratory: shortness of breath, dyspnea on exertion, no cough, no cough with sputum, no excessive sputum Gastrointestinal: no abdominal pain, no nausea, no vomiting, no diarrhea, no constipation, no change in bowel habits Genitourinary Male: no dysuria, no hematuria, no flank pain, no discharge, no urinary frequency, no urinary hesitancy Musculoskeletal: no neck stiffness, no neck pain, no shooting arm pain, no arm numbness/tingling, no low back pain, no shooting leg pain Integumentary: no rash, no pruritis, no redness, no sores, no wounds Neurological: no head injury, no paralysis, no weakness, no parathesias, no n umbness, no tingling, no seizures, no syncope Psychiatric: no anxiety Endocrine: no cold intolerance, no heat intolerance Hematologic/Lymphatic: no easy bruising, no easy bleeding Allergic/Immunologic: no urticaria Physical Examination Vital Signs Pulse Resp BP Pulse Ox 79 18 178/90 97 01/19/20 05:51 01/19/20 05:51 01/19/20 05:51 01/19/20 05:51 General appearance: no acute distress HEENT: Positive: PERRL, Normocephaly, Mucus Membranes Moist Neck: Positive: neck supple, trachea midline Cardiac: Positive: Reg Rate and Rhythm, S1/S2 Lungs: Positive: Decreased Breath Sounds Neuro: Positive: Grossly Intact Abdomen: Negative: Tender Skin: Negative: Rash Musculoskeletal: No Pain Extremities: Absent: edema Results 01/19/20 05:53 01/19/20 05:53 Cardiac Enzymes 01/19/20 Range/Units 05:53 AST 22 (5-40) units/L CK-MB (CK-2) 3.1 (0.0-4.0) ng/mL Coagulation 01/19/20 Range/Units 05:53 PT 15.6 H (12.2-14.9) Sec. INR 1.21 H (0.87-1.13) APTT 27.4 (24.2-36.6) Sec. CBC 01/19/20 Range/Units 05:53 WBC 5.9 (4.5-11.0) K/mm3 RBC 4.27 (3.65-5.03) M/mm3 Hgb 11.7 L (11.8-15.2) gm/dl Hct 36.4 (35.5-45.6) % Plt Count 192 (140-440) K/mm3 Lymph # (Auto) 1.8 (1.2-5.4) K/mm3 Love # (Auto) 0.5 (0.0-0.8) K/mm3 Eos # (Auto) 0.1 (0.0-0.4) K/mm3 Baso # (Auto) 0.0 (0.0-0.1) K/mm3 Comprehensive Metabolic Panel 01/19/20 01/19/20 Range/Units 05:53 05:53 Sodium 140 (137-145) mmol/L Potassium 4.3 (3.6-5.0) mmol/L Chloride 106.2 (98-107) mmol/L Carbon Dioxide 20 L (22-30) mmol/L BUN 23 H (9-20) mg/dL Creatinine 1.5 H (0.8-1.3) mg/dL Glucose 136 H (75-100) mg/dL Calcium 9.1 (8.4-10.2) mg/dL Direct Bilirubin < 0.2 (0-0.2) mg/dL Indirect Bilirubin 0.4 mg/dL AST 22 (5-40) units/L ALT 35 (7-56) units/L Alkaline Phosphatase 50 (35-129) units/L Total Protein 6.6 (6.3-8.2) g/dL Albumin 3.8 L (3.9-5) g/dL - Imaging and Cardiology Echo: report reviewed (05/2019 showed EF 25-30%, RA mildly dilated, LV mod dilated. ) Cardiac cath: report reviewed (05/2019 showed moderate nonobstructive CAD w/ patent dRCA stent (right dominant), severe global LV hypokinesis (30-35%)) EKG: report reviewed, image reviewed EKG interpretations - Telemetry EKG Rhythm: Sinus Rhythm - EKG Sinus rhythms and dysrhythmias: sinus rhythm Assessment and Plan Resume home medications and initiate IV lasix daily. F/u BMP in AM. Chest pain appears atypical, AMI r/o. LHC done 05/2019 showed moderate nono bstructive CAD w/ patent dRCA stent (right dominant), severe global LV hypokinesis (30-35%). No plans for additional ischemic evaluation at this time. Obtain echo and f/u ECG in AM. Will follow. The patient has been seen in conjunction with Dr. Rivas who agrees with the assessment and plan of care. - Patient Problems (1) Acute HFrEF (heart failure with reduced ejection fraction) Current Visit: No Status: Acute (2) Cardiomyopathy Current Visit: No Status: Chronic (3) Chest pain Current Visit: No Status: Acute Qualifiers: Chest pain type: unspecified Qualified Code(s): R07.9 - Chest pain, unspecified (4) Accelerated hypertension Current Visit: No Status: Acute (5) CAD (coronary artery disease) Current Visit: No Status: Chronic (6) Stented coronary artery Current Visit: No Status: Chronic (7) Hypertension Current Visit: No Status: Chronic (8) Hyperlipidemia Current Visit: No Status: Chronic (9) Medical non-compliance Current Visit: Yes Status: Chronic
--- NOTE | 2020-01-19 11:14 | History and Physical Report ---
History of Present Illness Date of examination: 01/19/20 Date of admission: 01/19/20 09:09 Chief complaint: Chest pain intermittent for the last 2 days History of present illness: Very pleasant 59-year-old obese male patient with significant past medical history of coronary artery disease status post PCI in 2017, chronic systolic congestive heart failure, hypertension and dyslipidemia follows with [facility], noncompliant with medications presented to the emergency room with intermittent chest pain and shortness of breath of 2 days duration worse since this morning. Patient grades his chest pain between 5-6/10 pressure to squeezing type not ass ociated with nausea vomiting or diaphoresis. Patient reports that he stopped cardiac medications because he was feeling better, Patient's most recent cath was done in May 2019, which showed mild to moderate nonobstructive coronary artery disease with patent stent RCA With ejection fraction of 30 to 35%.[05/2019] Initial evaluation in the emergency room show negative cardiac enzymes x2 And chest x-ray no acute abnormalities noted Denies orthopnea or paroxysmal nocturnal dyspnea, however he has dyspnea on exertion Past History Past Medical History: CAD, heart failure, hypertension, hyperlipidemia, other (Asthma, diabetic neuropathy) Past Surgical History: PTCA Social history: smoking (History of smoking, denies tobacco use now). denies: alcohol abuse, prescription drug abuse Family history: hypertension Medications and Allergies Allergies Allergy/AdvReac Type Severity Reaction Status Date / Time No Known Allergies Allergy Unverified 04/04/16 12:57 Home Medications Medication Instructions Recorded Confirmed Last Taken Type Metformin HCl [Glucophage] 1,000 mg PO BID 04/04/16 05/05/19 1 Day Ago History ~03/26/18 Gabapentin 300 mg PO Q8HR 03/27/18 05/05/19 2 Days Ago History ~03/25/18 Pregabalin 75 mg PO BID 03/27/18 05/05/19 1 Day Ago History ~03/26/18 Aspirin EC [Halfprin EC] 81 mg PO QDAY #90 tablet. 05/08/19 Unknown Rx Furosemide [Lasix TAB] 40 mg PO 0600,1800 #60 tablet 05/08/19 Unknown Rx ISOSORBIDE MONOnitrate [Imdur ER] 30 mg PO QDAY #30 tablet 05/08/19 Unknown Rx Nicotine [Habitrol] 14 mg TD QDAY #30 patch 05/08/19 Unknown Rx Nitroglycerin [Nitrostat] 0.4 mg SL Q5M PRN #30 tab 05/08/19 Unknown Rx Spironolactone [Aldactone] 25 mg PO QDAY #30 tablet 05/08/19 Unknown Rx carvediloL [Coreg] 12.5 mg PO BID #60 tablet 05/08/19 Unknown Rx hydrALAZINE [Apresoline TAB] 50 mg PO Q8HR 30 Days #180 tablet 05/08/19 05/05/19 Unknown Rx lisinopriL [Zestril TAB] 20 mg PO QDAY #30 tablet 05/08/19 Unknown Rx Active Meds: Active Medications Aspirin (Halfprin Ec) 81 mg PO QDAY EDUARDO Atorvastatin Calcium (Lipitor) 40 mg PO QHS EDUARDO Carvedilol (Coreg) 12.5 mg PO BID EDUARDO Furosemide (Lasix) 40 mg IV DAILY EDUARDO Hydralazine HCl (Apresoline) 50 mg PO Q8HR EDUARDO Isosorbide Mononitrate (Imdur) 30 mg PO QDAY EDUARDO Lisinopril (Zestril) 20 mg PO QDAY EDUARDO Spironolactone (Aldactone) 25 mg PO QDAY EDUARDO Review of Systems Constitutional: weakness, no weight loss, no weight gain, no fever, no chills Ears, nose, mouth and throat: no nasal congestion, no nasal discharge Cardiovascular: chest pain, shortness of breath, no orthopnea, no palpitations, no lightheadedness Respiratory: shortness of breath, no cough Gastrointestinal: no nausea, no vomiting, no diarrhea Genitourinary Male: no dysuria, no hematuria Musculoskeletal: no myalgias, no arthritis Integumentary: no rash, no lesions Neurological: weakness, no seizures, no syncope Psychiatric: no anxiety, no depression Endocrine: no cold intolerance, no heat intolerance Hematologic/Lymphatic: no easy bruising, no easy bleeding Allergic/Immunologic: no urticaria, no allergic rhinitis Exam - Constitutional Vitals: Temp Pulse Resp BP Pulse Ox 66 19 160/92 99 01/19/20 10:30 01/19/20 10:30 01/19/20 10:30 01/19/20 10:30 General appearance: Present: mild distress, obese - EENT Eyes: Present: PERRL, EOM intact - Neck Neck: Present: supple, normal ROM - Respiratory Respiratory effort: normal Respiratory: bilateral: diminished, rales, negative: rhonchi, wheezing - Cardiovascular Rhythm: regular Heart Sounds: Present: S1 & S2 - Extremities Extremities: no ischemia Extremity abnormal: edema - Abdominal General gastrointestinal: Present: soft, non-tender, non-distended, normal bowel sounds - Integumentary Integumentary: Present: clear, warm - Musculoskeletal Musculoskeletal: strength equal bilaterally, generalized weakness - Psychiatric Psychiatric: appropriate mood/affect, cooperative - Neurologic Neurologic: CNII-XII intact, moves all extremities HEART Score - HEART Score EKG: Non-specific Age: 45-65 Risk factors: > 3 risk factors or hx of atherosclerotic disease Troponin: Troponin T < 0.010 ng/mL (0.00-0.029) 01/19/20 08:52 Troponin: < normal limit - Critical Actions Critical Actions: 0-3 pts:0.9-1.7%risk of adverse cardiac event.Candidate for discharge Results - Labs CBC & Chem 7: 01/19/20 05:53 01/19/20 05:53 Labs: Abnormal lab results 01/19/20 01/19/20 01/19/20 Range/Units 05:53 05:53 05:53 Hgb 11.7 L (11.8-15.2) gm/dl RDW 17.3 H (13.2-15.2) % Ramsey % (Auto) 9.1 H (0.0-7.3) % PT 15.6 H (12.2-14.9) Sec. INR 1.21 H (0.87-1.13) D-Dimer 293.57 H (0-234) ng/mlDDU Carbon Dioxide 20 L (22-30) mmol/L BUN 23 H (9-20) mg/dL Creatinine 1.5 H (0.8-1.3) mg/dL Glucose 136 H (75-100) mg/dL NT-Pro-B Natriuret Pep (0-900) pg/mL Albumin (3.9-5) g/dL 01/19/20 Range/Units 05:53 Hgb (11.8-15.2) gm/dl RDW (13.2-15.2) % Ramsey % (Auto) (0.0-7.3) % PT (12.2-14.9) Sec. INR (0.87-1.13) D-Dimer (0-234) ng/mlDDU Carbon Dioxide (22-30) mmol/L BUN (9-20) mg/dL Creatinine (0.8-1.3) mg/dL Glucose (75-100) mg/dL NT-Pro-B Natriuret Pep 2567 H (0-900) pg/mL Albumin 3.8 L (3.9-5) g/dL Assessment and Plan --Acute on chronic systolic congestive heart failure; EF 25 to 30%[05/2019] Antifailure medications, IV diuretics, beta-blockers, YAMILKA inhibitors, nitrates Input output monitoring, daily weights Cardiology consulted --Chest pain; rule out acute coronary syndrome Patient has multiple risk factors Continue current cardiac medications, serial cardiac enzymes Echocardiogram, cardiology consulted --Ischemic cardiomyopathy; EF 25 to 30%, antifailure medications Consider LifeVest/ICD if needed --Acute kidney injury; vasomotor nephropathy Closely monitor renal function, avoid nephrotoxins Hold metformin, nephrology evaluation if no improvement tomorrow, will hold YAMILKA inhibitors --Hypertension; moderate control Resume antihypertensives, as needed medications --Type 2 diabetes mellitus; On Metformin, hold Metformin/acute kidney injury Accu-Chek sliding scale coverage ADA diet Long-acting insulin 70/30 as needed Hb A1c 6[05/2019] --Dyslipidemia; continue statin Low-cholesterol diet --Obesity; BMI 38.0 Patient needs weight reduction when medically stable Part of the weight probably due to fluid/edema --Medical noncompliance; Patient strongly advised to comply with medications, diet Exercise as tolerated, follow-up with physicians Patient verbalized understanding --DC planning per case management We will closely monitor the patient and adjust the management as needed Plan of care reviewed with the patient and his nurse
[2020-01-19] MEDS ORDERED: FUROSEMIDE 40 MG/4 ML INJ ONE (12:47)
[2020-01-19] MEDS: INSULIN LISPRO 100 UNIT/ML VIAL 3 mL SUB-Q SCH ×3 (12:56→23:01)
[2020-01-19] MEDS: FUROSEMIDE 40 MG/4 ML INJ IV SCH (12:57)
[2020-01-19] MEDS: GABAPENTIN 300 MG CAP PO SCH ×2 (14:29→22:56)
[2020-01-19] MEDS: hydrALAZINE 25 MG TAB PO SCH ×2 (14:30→22:56)
[2020-01-19] MEDS ORDERED: carvediloL 12.5 MG TAB PO SCH (22:00)
[2020-01-19] MEDS ORDERED: FUROSEMIDE 40 MG/4 ML INJ IV SCH (22:00)
[2020-01-20] MEDS ORDERED: MORPHINE 2 MG/1 ML INJ IV ONE (03:55)
[2020-01-20] MEDS ORDERED: FUROSEMIDE 20 MG/2 ML INJ IV ONE (04:13)
[2020-01-20] MEDS: GABAPENTIN 300 MG CAP PO SCH ×2 (06:30→13:28)
[2020-01-20] MEDS: hydrALAZINE 25 MG TAB PO SCH ×2 (06:30→13:27)
[2020-01-20] MEDS: INSULIN LISPRO 100 UNIT/ML VIAL 3 mL SUB-Q SCH ×3 (08:32→17:10)
[2020-01-20] MEDS ORDERED: ASPIRIN EC 81 MG TAB PO SCH (10:00)
[2020-01-20] MEDS ORDERED: LISINOPRIL 20 MG TAB PO SCH (10:00)
[2020-01-20] MEDS ORDERED: FUROSEMIDE 20 MG/2 ML INJ IV SCH (10:00)
[2020-01-20] MEDS ORDERED: NICOTINE 14 MG/24 HR PATCH TD SCH (10:00)
[2020-01-20] MEDS ORDERED: SPIRONOLACTONE 25 MG TAB PO SCH (10:00)
--- NOTE | 2020-01-20 10:17 | Progress Note ---
Assessment and Plan tte reviewed - EF 20-25%, restrictive diastolic filling, RV mild to mod dilated, mild MR, mild TR, RVSP 44mmHg. tele reviewed - in SR HR 70s with 13 beat NSVT noted yesterday evening, pt asymptomatic. Increase coreg to 25mg BID. Currently stable cardiac status. Pt may discharge from cardiology standpoint. At discharge, recommend conversion to PO lasix 40mg daily. Cont all other present cardiac management. Cardiac defibrillator may be indicated in setting of longstanding CMP and NSVT. Pt is fearful of AICD because he states his brother after AICD implantation. Pt wishes to optimize medical therapy and implement lifestyle changes and readdress defibrillator candidacy with his primary pneumatic riveter as OP. Follow up in our [place] office with Dr. CRISTY Crenshaw on 02/03/2020 @ 9:15AM. The patient has been seen in conjunction with Dr. Rivas who agrees with the assessment and plan of care. - Patient Problems (1) Acute HFrEF (heart failure with reduced ejection fraction) Current Visit: Yes Status: Acute (2) Cardiomyopathy Current Visit: Yes Status: Chronic (3) Chest pain Current Visit: Yes Status: Resolved Qualifiers: Chest pain type: unspecified Qualified Code(s): R07.9 - Chest pain, unspecified (4) Accelerated hypertension Current Visit: Yes Status: Acute (5) CAD (coronary artery disease) Current Visit: Yes Status: Chronic (6) Stented coronary artery Current Visit: Yes Status: Chronic (7) Hypertension Current Visit: Yes Status: Chronic (8) Hyperlipidemia Current Visit: Yes Status: Chronic (9) Medical non-compliance Current Visit: Yes Status: Chronic (10) NSVT (nonsustained ventricular tachycardia) Current Visit: Yes Status: Acute Subjective Date of service: 01/20/20 Principal diagnosis: HF Interval history: pt resting in bed, feeling much better today, SOB improving and chest pain resolved. tele reviewed - in SR HR 70s with 13 beat NSVT noted yesterday evening, pt asymptomatic. Objective Last Vital Signs Temp 97.8 F 01/20/20 03:33 Pulse 68 01/20/20 06:30 Resp 18 01/20/20 03:33 BP 174/105 01/20/20 03:33 Pulse Ox 96 01/20/20 03:33 - Physical Examination General: No Apparent Distress HEENT: Positive: PERRL, Normocephaly, Mucus Membranes Moist Neck: Positive: neck supple, trachea midline Cardiac: Positive: Reg Rate and Rhythm, S1/S2 Lungs: Positive: Decreased Breath Sounds Neuro: Positive: Grossly Intact Abdomen: Negative: Tender Skin: Negative: Rash Musculoskeletal: No Pain Extremities: Absent: edema - Imaging and Cardiology EKG: report reviewed, image reviewed Echo: report reviewed (05/2019 showed EF 25-30%, RA mildly dilated, LV mod dilated. ) Cardiac cath: report reviewed (05/2019 showed moderate nonobstructive CAD w/ patent dRCA stent (right dominant), severe global LV hypokinesis (30-35%)) - EKG Sinus rhythms and dysrhythmias: sinus rhythm
[2020-01-20 11:00] LABS: BUN/Creatinine Ratio 14; Blood Urea Nitrogen 19 mg/dL (9-20); Hemolysis Index 4
[2020-01-20] MEDS ORDERED: carvediloL 12.5 MG TAB PO SCH (11:00)
[2020-01-20] MEDS: FUROSEMIDE 40 MG/4 ML INJ IV SCH (11:05)
--- NOTE | 2020-01-20 12:05 | Discharge Summary ---
Providers - Providers Date of Admission: 01/19/20 09:09 Date of discharge: 01/20/20 Attending physician: TYRONE PEDROZA 01/19/20 08:25 Consult to Physician [CONS] Urgent Comment: Consulting Provider: CISCO CAROLINA Physician Instructions: Reason For Exam: CP uncontrolled HTN Primary care physician: FREEZER PERSON Hospitalization Condition: Stable Disposition: DC-01 TO HOME OR SELFCARE Time spent for discharge: 32 min Core Measure Documentation - Palliative Care Palliative Care/ Comfort Measures: Not Applicable - Core Measures Any of the following diagnoses?: none Exam - Constitutional Vitals: Temp Pulse Resp BP Pulse Ox 98.8 F 68 18 151/94 96 01/20/20 11:21 01/20/20 11:09 01/20/20 08:00 01/20/20 11:09 01/20/20 03:33 Plan Activity: advance as tolerated Diet: diabetic, other (cardiac diet) Additional Instructions: If you have chest pain or shortness of breath or worsening symptoms contact MD or go to emergency room. Advised 2 days work excuse 01/21/2020 and 01/22/2020. May return to work on 01/24/2020 Follow up with: JAGUAR FRAGOSO MD [Primary Care Provider] - 3-5 Days WLIFRID CAROLINA MD [Staff Physician] - 02/03/20 9:15 am Prescriptions: Furosemide [Lasix TAB] 40 mg PO QDAY #30 tablet AtorvaSTATin [Lipitor] 40 mg PO QHS #30 tablet
[2020-01-20 17:09] VITALS: BP 144/110
== END 2020-01-20 17:05 | disposition home or self-care (01) | DRG 682 ==
LOC: ED 05:39 → 4A 09:09
PROVIDERS: ADMIT Internal Medicine; ATTEND Internal Medicine
DX: N17.0 Acute kidney failure with tubular necrosis (principal); I50.23 Acute on chronic systolic (congestive) heart failure; I47.1 Supraventricular tachycardia; I16.0 Hypertensive urgency; E11.9 Type 2 diabetes mellitus without complications; I25.10 Atherosclerotic heart disease of native coronary artery without angina pectoris; I25.5 Ischemic cardiomyopathy; E66.9 Obesity, unspecified; I11.0 Hypertensive heart disease with heart failure; E78.5 Hyperlipidemia, unspecified; Z95.5 Presence of coronary angioplasty implant and graft; Z91.14 Patient's other noncompliance with medication regimen; Z95.810 Presence of automatic (implantable) cardiac defibrillator; Z79.899 Other long term (current) drug therapy; Z68.38 Body mass index [BMI] 38.0-38.9, adult
CPT/HCPCS: 36415; 71045; 80048; 80076; 82550; 82553; 82962; 83735; 83880; 84484; 85025; 85379; 85610; 85730; 90471; 93005; 93306; 96365; 96375; G0378; A9270-GY; J1940; J2270

== ENCOUNTER 2020-04-18 07:15 | Outpatient (CLI) | payer BC | END 2020-04-18 07:16 | disposition home or self-care (01) | LOC: ECHO 07:15 | PROVIDERS: ATTEND Specialist | DX: I11.0 Hypertensive heart disease with heart failure (principal); I50.22 Chronic systolic (congestive) heart failure; I25.10 Atherosclerotic heart disease of native coronary artery without angina pectoris; R06.02 Shortness of breath; R07.89 Other chest pain; E78.49 Other hyperlipidemia; Z98.61 Coronary angioplasty status | CPT/HCPCS: 93306 ==

== ENCOUNTER 2020-10-29 05:52 | Emergency (ER) | payer BC ==
[2020-10-29] MEDS ORDERED: ASPIRIN 325 MG TAB PO ONE (06:02)
--- NOTE | 2020-10-29 06:34 | XRay Report ---
CHEST 2 VIEWS INDICATION / CLINICAL INFORMATION: SOB, chest pain. COMPARISON: 01/19/20 FINDINGS: SUPPORT DEVICES: None. HEART / MEDIASTINUM: Heart is mildly enlarged but stable. LUNGS / PLEURA: No significant pulmonary or pleural abnormality. No pneumothorax. ADDITIONAL FINDINGS: No significant additional findings. IMPRESSION: 1. No acute findings. Signer Name: Hayden Parmar MD Signed: 10/29/2020 6:29 AM Workstation Name: [id number]
[2020-10-29 06:36] LABS: Basophils % (Auto) 0.3 % (0.0-1.8); Eosinophils # (Auto) 0.2 K/mm3 (0.0-0.4); Eosinophils % (Auto) 3.3 % (0.0-4.3); Hematocrit 37.6 % (35.5-45.6); Hemoglobin 12.3 gm/dl (11.8-15.2); Lymphocytes # (Auto) 1.1 K/mm3 (1.2-5.4); Mean Corpuscular HGB Conc 33 % (32-34); Mean Corpuscular Volume 83 fl (84-94); Monocytes # (Auto) 0.7 K/mm3 (0.0-0.8); Monocytes % (Auto) 13.2 % (0.0-7.3); Platelet Count 153 K/mm3 (140-440); Red Blood Count 4.54 M/mm3 (3.65-5.03); Red Cell Distribution Width 19.3 % (13.2-15.2)
[2020-10-29 07:06] LABS: Alanine Aminotransferase 22 units/L (7-56); Albumin 4.4 g/dL (3.9-5); BUN/Creatinine Ratio 13; Blood Urea Nitrogen 19 mg/dL (9-20); Calcium 9.7 mg/dL (8.4-10.2); Hemolysis Index 3
[2020-10-29] MEDS ORDERED: SODIUM CHLORIDE 0.9% 500 ML 500 ML IV ONE (08:05)
[2020-10-29] MEDS ORDERED: ALBUTEROL 2.5 MG/3 ML NEBU IH ONE (08:05)
[2020-10-29] MEDS ORDERED: IPRATROPIUM 0.02% NEBU 2.5 ML IH ONE (08:05)
[2020-10-29] MEDS ORDERED: KETOROLAC 30 MG/1 ML INJ IV ONE (08:05)
[2020-10-29] MEDS ORDERED: ONDANSETRON 4 MG/2 ML INJ IV ONE (08:05)
--- NOTE | 2020-10-29 08:11 | Emergency Department Report ---
HPI - General Chief Complaint: Dyspnea/Respdistress Time Seen by Provider: 10/29/20 07:51 - HPI HPI: Room 35 The patient is a 60-year-old male present with a chief complaint of "I cannot breathe." The patient complains of a cough productive of yellow sputum shortness of breath and orthopnea for the past 3 nights. Patient admits to nausea and vomiting chills and body aches. Patient denies loss of sense of smell or taste. Patient denies history of fever or diarrhea. The patient received his second dose of the [facility] Covid vaccination over 2 months ago. Patient drove himself to the emergency department. ED Past Medical Hx - Past Medical History Previous Medical History?: Yes Hx Hypertension: Yes Hx Congestive Heart Failure: Yes Hx Diabetes: Yes - Surgical History Past Surgical History?: Yes Hx Coronary Stent: Yes Additional Surgical History: Stent 04/05/16 - Family History Family history: no significant - Social History Smoking Status: Former Smoker (None x2 weeks) Substance Use Type: Alcohol (Occasion) - Medications Home Medications: Home Medications Medication Instructions Recorded Confirmed Last Taken Type Metformin HCl [Glucophage] 1,000 mg PO BID 04/04/16 01/20/20 1 Day Ago History ~03/26/18 Gabapentin 300 mg PO Q8HR 03/27/18 01/20/20 2 Days Ago History ~03/25/18 Aspirin EC [Halfprin EC] 81 mg PO QDAY #90 tablet. 05/08/19 01/20/20 Unknown Rx Nicotine [Habitrol] 14 mg TD QDAY #30 patch 05/08/19 01/20/20 Unknown Rx Nitroglycerin [Nitrostat] 0.4 mg SL Q5M PRN #30 tab 05/08/19 01/20/20 Unknown Rx Spironolactone [Aldactone] 25 mg PO QDAY #30 tablet 05/08/19 01/20/20 Unknown Rx carvediloL [Coreg] 12.5 mg PO BID #60 tablet 05/08/19 01/20/20 Unknown Rx hydrALAZINE [Apresoline TAB] 50 mg PO Q8HR 30 Days #180 tablet 05/08/19 01/20/20 Unknown Rx Furosemide [Lasix TAB] 40 mg PO QDAY #30 tablet 01/20/20 Unknown Rx ISOSORBIDE MONOnitrate [Imdur ER] 30 mg PO DAILY 01/20/20 01/20/20 Unknown History lisinopriL [Zestril TAB] 20 mg PO QDAY tablet 01/20/20 Unknown Rx Albuterol Mdi (or & Nicu Only) 2 puff IH QID PRN #8.5 gram 10/29/20 Unknown Rx [ProAir HFA Inhaler] Azithromycin [Zithromax Z-FRITZ] 0 mg PO DAILY #6 tab 10/29/20 Unknown Rx HYDROcodone/APAP 5-325 [Hostetter 1 - 2 each PO Q6HR PRN #10 tablet 10/29/20 Unknown Rx 5/325] Prednisone [predniSONE 10 mg 10 mg PO .TAPER #1 tab.ds.pk 10/29/20 Unknown Rx (6-Day Pack, 21 Tabs)] guaiFENesin DM [Guaifenesin Dm 10 ml PO Q6H PRN #300 ml 10/29/20 Unknown Rx Syrup] ED Review of Systems ROS: Stated complaint: WALI Other details as noted in HPI Constitutional: chills. denies: fever Eyes: denies: eye pain ENT: denies: throat pain Respiratory: cough, orthopnea, shortness of breath Cardiovascular: denies: chest pain Endocrine: no symptoms reported Gastrointestinal: nausea, vomiting Genitourinary: denies: dysuria Musculoskeletal: myalgia Neurological: denies: headache Physical Exam - Physical Exam Vital Signs: Vital Signs 10/29/20 05:54 Temperature 98.2 F Pulse Rate 96 H Respiratory 22 Rate Blood Pressure 186/106 [Right] O2 Sat by Pulse 96 Oximetry Physical Exam: GENERAL: The patient is well-developed well-nourished male sitting on stretcher not appearing to be in acute distress. [] HEENT: Normocephalic. Atraumatic. Extraocular motions are intact. Patient has moist mucous membranes. NECK: Supple. Trachea midline CHEST/LUNGS: Rhonchi present. There is no respiratory distress noted. HEART/CARDIOVASCULAR: Regular. There is no tachycardia. There is no gallop rub or murmur. ABDOMEN: Abdomen is soft, nontender. Patient has normal bowel sounds. There is no abdominal distention. SKIN: There is no rash. There is no edema. There is no diaphoresis. NEURO: The patient is awake, alert, and oriented. The patient is cooperative. The patient has no focal neurologic deficits. The patient has normal speech. GCS 15 MUSCULOSKELETAL: There is no evidence of acute injury. ED Course Vital Signs 10/29/20 05:54 Temperature 98.2 F Pulse Rate 96 H Respiratory 22 Rate Blood Pressure 186/106 [Right] O2 Sat by Pulse 96 Oximetry - Reevaluation(s) Reevaluation #1: 10/29/20 11:37 Patient is 2-minute walking SPO2 94/95% on room air 10/29/20 11:38 Patient states he feels comfortable and would prefer to go home ED Medical Decision Making - Lab Data Result diagrams: 10/29/20 06:05 10/29/20 06:05 - EKG Data -: EKG Interpreted by Me EKG shows normal: sinus rhythm Rate: normal - EKG Data When compared to previous EKG there are: previous EKG unavailable Interpretation: other (No ischemic changes seen) - Radiology Data Radiology results: report reviewed (Chest x-ray), image reviewed (Chest x-ray) interpreted by me: Chest x-[id number] cuffing. No pneumothorax. No definite focal infiltrate [facility] [address] [place] [address] X Ray Report Signed Patient: ALONDRA ERWIN MR#: [id number] : 1960 Acct:[id number] Age/Sex: 60 / M ADM Date: 10/29/20 Loc: ED Attending Dr: Ordering Physician: MARK AMBROSE MD Date of Service: 10/29/20 Procedure(s): XR chest routine 2V Accession Number(s): [id number] cc: ED MD ARNOL Fluoro Time In Minutes: CHEST 2 VIEWS INDICATION / CLINICAL INFORMATION: SOB, chest pain. COMPARISON: 01/19/20 FINDINGS: SUPPORT DEVICES: None. HEART / MEDIASTINUM: Heart is mildly enlarged but stable. LUNGS / PLEURA: No significant pulmonary or pleural abnormality. No pneumothorax. ADDITIONAL FINDINGS: No significant additional findings. IMPRESSION: 1. No acute findings. Signer Name: Hayden Parmar MD Signed: 10/29/2020 6:29 AM Workstation Name: [id number] Transcribed By: DT Dictated By: Omega Parmar MD Electronically Authenticated By: Omega Parmar MD Signed Date/Time: 10/29/20628 DD/ 7 TD/TT: Print Cancel - Differential Diagnosis Pneumonia, bronchitis, CHF exacerbation, COVID-19 Critical care attestation.: If time is entered above; I have spent that time in minutes in the direct care of this critically ill patient, excluding procedure time. ED Disposition Clinical Impression: Acute bronchitis Disposition: - TO HOME OR SELFCARE Is pt being admited?: No Does the pt Need Aspirin: No Condition: Stable Instructions: Acute Bronchitis (ED), Acute Bronchitis, Adult, [id number], COVID-19 Frequently Asked Questions, COVID-19, Prevent the Spread of COVID-19 if You Are Sick - [facility] Additional Instructions: Return to the emergency department should you develop worsening symptoms, inability to tolerate food or liquids, high fever or any other concerns Prescriptions: guaiFENesin DM [Guaifenesin Dm Syrup] 10 ml PO Q6H PRN #300 ml PRN Reason: Cough HYDROcodone/APAP 5-325 [Hostetter 5/325] 1 - 2 each PO Q6HR PRN #10 tablet PRN Reason: Pain Prednisone [predniSONE 10 mg (6-Day Pack, 21 Tabs)] 10 mg PO .TAPER #1 tab.ds.pk Albuterol Mdi (or & Nicu Only) [ProAir HFA Inhaler] 2 puff IH QID PRN #8.5 gram PRN Reason: Shortness Of Breath Azithromycin [Zithromax Z-FRITZ] 0 mg PO DAILY #6 tab Referrals: PRIMARY CAREMD [Primary Care Provider] - 3-5 Days KALPANA JASMINE MD [Staff Physician] - 3-5 Days Time of Disposition: 11:42
[2020-10-29 11:31] VITALS: BP 168/92
--- NOTE | 2020-10-30 10:38 | Electrocardiograph Report ---
[facility] Test Date: 2020-10-29 Test Time: 06:11:37 Pat Name: ALONDRA ERWIN Department: Room: Gender: M Complaint Inspector: : 1960 Requested By: GUERRERO ROJAS Order Number: [id number] Reading MD: Benigno Crenshaw Measurements Intervals [place] Rate: 70 P: 41 NV: 180 QRS: 29 QRSD: 110 T: 33 QT: 405 QTc: 438 Interpretive Statements Sinus rhythm Left atrial enlargement No previous ECG available for comparison Electronically Signed On 10-30-2020 10:38:38 EDT by Benigno Crenshaw
== END 2020-10-29 12:33 | disposition home or self-care (01) ==
LOC: ED 05:52
DX: J20.9 Acute bronchitis, unspecified (principal); I11.0 Hypertensive heart disease with heart failure; I50.9 Heart failure, unspecified; E11.9 Type 2 diabetes mellitus without complications; Z87.891 Personal history of nicotine dependence; Z79.899 Other long term (current) drug therapy; Z98.890 Other specified postprocedural states
CPT/HCPCS: 36415; 71046; 80053; 84484; 85025; 93005; 94644; 96361; 96374; 96375; 99284; J1885; J2405; J7040

== ENCOUNTER 2020-12-11 12:33 | Emergency (ER) | payer BC ==
[2020-12-11 12:38] VITALS: BP 154/77
[2020-12-11] MEDS ORDERED: AMOXICILLIN/K CLAV 875/125MG TAB PO ONE (12:53)
--- NOTE | 2020-12-11 12:59 | Emergency Department Report ---
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 He denies any fever, difficulty swallowing. He has a past medical history of hypertension, diabetes, CHF, coronary artery disease. Patient says that he attempted to make a dental appointment but could not get one for about 1 month. ED Past Medical Hx - Past Medical History Previous Medical History?: Yes Hx Hypertension: Yes Hx Heart Attack/AMI: No Hx Congestive Heart Failure: Yes Hx Diabetes: Yes Hx Asthma: No Hx COPD: No Hx HIV: No - Surgical History Past Surgical History?: Yes Hx Coronary Stent: Yes Additional Surgical History: Stent 04/05/16 - Social History Smoking Status: Former Smoker (None x2 weeks) Substance Use Type: Alcohol (Occasion) - Medications Home Medications: Home Medications Medication Instructions Recorded Confirmed Last Taken Type Metformin HCl [Glucophage] 1,000 mg PO BID 04/04/16 01/20/20 1 Day Ago History ~03/26/18 Gabapentin 300 mg PO Q8HR 03/27/18 01/20/20 2 Days Ago History ~03/25/18 Aspirin EC [Halfprin EC] 81 mg PO QDAY #90 tablet. 05/08/19 01/20/20 Unknown Rx Nicotine [Habitrol] 14 mg TD QDAY #30 patch 05/08/19 01/20/20 Unknown Rx Nitroglycerin [Nitrostat] 0.4 mg SL Q5M PRN #30 tab 05/08/19 01/20/20 Unknown Rx Spironolactone [Aldactone] 25 mg PO QDAY #30 tablet 05/08/19 01/20/20 Unknown Rx carvediloL [Coreg] 12.5 mg PO BID #60 tablet 05/08/19 01/20/20 Unknown Rx hydrALAZINE [Apresoline TAB] 50 mg PO Q8HR 30 Days #180 tablet 05/08/19 01/20/20 Unknown Rx Furosemide [Lasix TAB] 40 mg PO QDAY #30 tablet 01/20/20 Unknown Rx ISOSORBIDE MONOnitrate [Imdur ER] 30 mg PO DAILY 01/20/20 01/20/20 Unknown History lisinopriL [Zestril TAB] 20 mg PO QDAY tablet 01/20/20 Unknown Rx Albuterol Mdi (or & Nicu Only) 2 puff IH QID PRN #8.5 gram 10/29/20 Unknown Rx [ProAir HFA Inhaler] Azithromycin [Zithromax Z-FRITZ] 0 mg PO DAILY #6 tab 10/29/20 Unknown Rx HYDROcodone/APAP 5-325 [Orr 1 - 2 each PO Q6HR PRN #10 tablet 10/29/20 Unknown Rx 5/325] Prednisone [predniSONE 10 mg 10 mg PO .TAPER #1 tab.ds.pk 10/29/20 Unknown Rx (6-Day Pack, 21 Tabs)] guaiFENesin DM [Guaifenesin Dm 10 ml PO Q6H PRN #300 ml 10/29/20 Unknown Rx Syrup] Amoxicillin/Potassium Clav 1 each PO BID #14 tablet 12/11/20 Unknown Rx [Augmentin 875-125 Tablet] ED Review of Systems ROS: Stated complaint: ABCESS Other details as noted in HPI Comment: All other systems reviewed and negative Constitutional: denies: chills, fever ENT: dental pain. denies: throat pain Respiratory: denies: cough, shortness of breath Gastrointestinal: denies: nausea, vomiting Physical Exam - Physical Exam Vital Signs: Vital Signs 12/11/20 12:35 Temperature 98.3 F Pulse Rate 70 Respiratory 18 Rate Blood Pressure 154/77 [Right] O2 Sat by Pulse 95 Oximetry Physical Exam: GENERAL: The patient is well-developed well-nourished. HENT: Normocephalic. Atraumatic. Patient has moist mucous membranes. There is tenderness and swelling to the right lateral lower jaw around the second premolar and first molar. No drooling or trismus. EYES: Extraocular motions are intact. NECK: Supple. Trachea is midline. SKIN: Skin is warm and dry. NEURO: The patient is awake, alert, and oriented. The patient is cooperative. Normal speech. MUSCULOSKELETAL: There is no tenderness or deformity. There is no limitation range of motion. ED Course Vital Signs 12/11/20 12:35 Temperature 98.3 F Pulse Rate 70 Respiratory 18 Rate Blood Pressure 154/77 [Right] O2 Sat by Pulse 95 Oximetry ED Medical Decision Making - Medical Decision Making This patient presents with a 1 week history of pain to the right lower jaw. He has some tenderness to palpation and some visible swelling around the gumline of the second premolar and first molar. No drooling or trismus. Posterior oropharynx is clear. Vital signs reassuring including afebrile. The patient be placed on antibiotics and has been given another referral for dentistry. Critical Care Time: No Critical care attestation.: If time is entered above; I have spent that time in minutes in the direct care of this critically ill patient, excluding procedure time. ED Disposition Clinical Impression: Dental infection Disposition: 01 HOME / SELF CARE / HOMELESS Is pt being admited?: No Condition: Stable Instructions: Dental Abscess Additional Instructions: Please follow-up with a dentist and your primary care physician in the next few days. Take the antibiotics as prescribed. Return to the emergency department with any worsening of your symptoms, new or concerning symptoms not addressed during this current emergency department visit, or with any acute distress. Prescriptions: Amoxicillin/Potassium Clav [Augmentin 875-125 Tablet] 1 each PO BID #14 tablet Referrals: [facility] [Outside] - 3-5 Days Time of Disposition: 13:01
== END 2020-12-11 13:01 | disposition home or self-care (01) ==
LOC: ED 12:33
DX: K08.89 Other specified disorders of teeth and supporting structures (principal); I10 Essential (primary) hypertension; E11.9 Type 2 diabetes mellitus without complications; Z87.891 Personal history of nicotine dependence; Z72.89 Other problems related to lifestyle
CPT/HCPCS: 99282

== ENCOUNTER 2021-01-22 11:04 | Outpatient (CLI) | payer BC ==
[2021-01-22 11:58] LABS: Calcium 8.9 mg/dL (8.4-10.2); Chol/HDL Ratio 2.88 %
[2021-01-22 12:12] LABS: Basophils % (Auto) 0.5 % (0.0-1.8); Eosinophils # (Auto) 0.1 K/mm3 (0.0-0.4); Eosinophils % (Auto) 1.4 % (0.0-4.3); Hematocrit 38.1 % (35.5-45.6); Hemoglobin 11.8 gm/dl (11.8-15.2); Lymphocytes # (Auto) 1.6 K/mm3 (1.2-5.4); Lymphocytes % (Auto) 28.2 % (13.4-35.0); Mean Corpuscular HGB Conc 31 % (32-34); Mean Corpuscular Volume 83 fl (84-94); Monocytes # (Auto) 0.7 K/mm3 (0.0-0.8); Monocytes % (Auto) 12.4 % (0.0-7.3); Platelet Count 141 K/mm3 (140-440); Red Cell Distribution Width 19.6 % (13.2-15.2)
[2021-01-25 15:25] LABS: Vitamin D, 25-OH, D2 <4 ng/mL
== END 2021-01-22 11:05 | disposition home or self-care (01) ==
LOC: LAB 11:04
PROVIDERS: ATTEND Internal Medicine
DX: E11.65 Type 2 diabetes mellitus with hyperglycemia (principal); R53.83 Other fatigue; E78.2 Mixed hyperlipidemia; I10 Essential (primary) hypertension; E55.9 Vitamin D deficiency, unspecified; N40.0 Benign prostatic hyperplasia without lower urinary tract symptoms
CPT/HCPCS: 36415; 80053; 80061; 82306; 83036; 84153; 84443; 85025

== ENCOUNTER 2021-02-17 21:02 | Inpatient (IN) | payer BC ==
[2021-02-17] MEDS ORDERED: ONDANSETRON 4 MG/2 ML INJ IV ONE (21:26)
[2021-02-17] MEDS ORDERED: HYDROmorphone 1 MG/1 ML INJ IV ONE (21:26)
--- NOTE | 2021-02-17 21:28 | Emergency Department Report ---
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 The patient was watching [employer] football and says that he ran down the hallway and went to use the bathroom. While in the bathroom he became dizzy and may have passed out and the right foot and ankle got wedged between the toilet and the bathtub. He has a history of hypertension and diabetes. He presents with very elevated blood pressure but is also in a lot of discomfort. The patient received 4 mg of morphine in route with EMS. ED Past Medical Hx - Past Medical History Hx Hypertension: Yes Hx Heart Attack/AMI: No Hx Congestive Heart Failure: Yes Hx Diabetes: Yes Hx Asthma: No Hx COPD: No Hx HIV: No - Surgical History Hx Coronary Stent: Yes Additional Surgical History: Stent 04/05/16 - Social History Smoking Status: Former Smoker (None x2 weeks) Substance Use Type: Alcohol (Occasion) - Medications Home Medications: Home Medications Medication Instructions Recorded Confirmed Last Taken Type Metformin HCl [Glucophage] 1,000 mg PO BID 04/04/16 01/20/20 1 Day Ago History ~03/26/18 Gabapentin 300 mg PO Q8HR 03/27/18 01/20/20 2 Days Ago History ~03/25/18 Aspirin EC [Halfprin EC] 81 mg PO QDAY #90 tablet. 05/08/19 01/20/20 Unknown Rx Nicotine [Habitrol] 14 mg TD QDAY #30 patch 05/08/19 01/20/20 Unknown Rx Nitroglycerin [Nitrostat] 0.4 mg SL Q5M PRN #30 tab 05/08/19 01/20/20 Unknown Rx Spironolactone [Aldactone] 25 mg PO QDAY #30 tablet 05/08/19 01/20/20 Unknown Rx carvediloL [Coreg] 12.5 mg PO BID #60 tablet 05/08/19 01/20/20 Unknown Rx hydrALAZINE [Apresoline TAB] 50 mg PO Q8HR 30 Days #180 tablet 05/08/19 01/20/20 Unknown Rx Furosemide [Lasix TAB] 40 mg PO QDAY #30 tablet 01/20/20 Unknown Rx ISOSORBIDE MONOnitrate [Imdur ER] 30 mg PO DAILY 01/20/20 01/20/20 Unknown History lisinopriL [Zestril TAB] 20 mg PO QDAY tablet 01/20/20 Unknown Rx Albuterol Mdi (or & Nicu Only) 2 puff IH QID PRN #8.5 gram 10/29/20 Unknown Rx [ProAir HFA Inhaler] Azithromycin [Zithromax Z-FRITZ] 0 mg PO DAILY #6 tab 10/29/20 Unknown Rx HYDROcodone/APAP 5-325 [[place] 1 - 2 each PO Q6HR PRN #10 tablet 10/29/20 Unknown Rx 5/325] Prednisone [predniSONE 10 mg 10 mg PO .TAPER #1 tab.ds.pk 10/29/20 Unknown Rx (6-Day Pack, 21 Tabs)] guaiFENesin DM [Guaifenesin Dm 10 ml PO Q6H PRN #300 ml 10/29/20 Unknown Rx Syrup] Amoxicillin/Potassium Clav 1 each PO BID #14 tablet 12/11/20 Unknown Rx [Augmentin 875-125 Tablet] ED Review of Systems ROS: Stated complaint: RT FOOT ANKLE INJURY Other details as noted in HPI Comment: All other systems reviewed and negative Constitutional: denies: chills, fever Eyes: denies: eye pain, vision change ENT: denies: ear pain, throat pain Respiratory: denies: cough, shortness of breath Cardiovascular: denies: chest pain, palpitations Gastrointestinal: denies: abdominal pain, vomiting Genitourinary: denies: dysuria, discharge Musculoskeletal: joint swelling, arthralgia Skin: denies: rash, lesions Neurological: denies: headache, weakness Physical Exam - Physical Exam Vital Signs: Vital Signs 02/17/21 21:14 Temperature 98.5 F Pulse Rate 81 Respiratory 18 Rate Blood Pressure 200/118 [Left] O2 Sat by Pulse 98 Oximetry Physical Exam: GENERAL: The patient is well-developed well-nourished. HENT: Normocephalic. Atraumatic. Patient has moist mucous membranes. EYES: Extraocular motions are intact. NECK: Supple. Trachea is midline. CHEST/LUNGS: Clear to auscultation. There is no respiratory distress noted. HEART/CARDIOVASCULAR: Regular. There is no tachycardia. There is no murmur. ABDOMEN: Abdomen is soft, nontender. Patient has normal bowel sounds. SKIN: Skin is warm and dry. Circumferential right ankle nonpitting swelling. NEURO: The patient is awake, alert, and oriented. The patient is cooperative. The patient has no focal neurologic deficits. Normal speech. MUSCULOSKELETAL: There is tenderness to palpation to the right ankle, worst laterally. Dorsalis pedis pulse +2/4 and capillary refill less than 2 seconds to the affected right lower extremity. Decreased range of motion of the right foot and ankle secondary to pain. ED Course Vital Signs 02/17/21 21:14 Temperature 98.5 F Pulse Rate 81 Respiratory 18 Rate Blood Pressure 200/118 [Left] O2 Sat by Pulse 98 Oximetry - Consultations Consultation #1: 02/17/21 22:25 I spoke to the orthopedist on-call, Dr. Elise. He listened to the case presentation and looked at the x-rays of the ankle. The patient will need surgical fixation. Given the patient's comorbidities, the patient will be admitted to the hospitalist service and Dr. Elise will consult on the patient and see him tomorrow with the plan of taking him to the OR on Friday. - Procedure Description Procedures done: Fracture/splint care: A right U-shaped stirrup OCL splint was placed by myself and office equipment technician Thanh. This was done secondary to a distal right mildly comminuted fibula fracture with widened syndesmosis. The OCL was wrapped with Clyde wrap and a small amount of Coban. I then added pressure to the lateral medial this and asked him to better align the fibular fragments, the foot and ankle. The patient is able to wiggle his toes, has good sensation in the toes, and has capillary refill less than 2 seconds showing that he is neurovascularly intact after splint placement. ED Medical Decision Making - Lab Data Result diagrams: 02/17/21 22:25 02/17/21 22:25 Labs 02/17/21 02/17/21 02/17/21 21:51 22:25 22:25 WBC 7.8 RBC 4.67 Hgb 12.2 Hct 39.1 MCV 84 MCH 26 L MCHC 31 L RDW 20.1 H Plt Count 157 Lymph % (Auto) 14.5 [place] % (Auto) 7.6 H Eos % (Auto) 0.7 Baso % (Auto) 0.3 Lymph # (Auto) 1.1 L [place] # (Auto) 0.6 Eos # (Auto) 0.1 Baso # (Auto) 0.0 Seg Neutrophils % 76.9 H Seg Neutrophils # 6.0 Sodium 136 L Potassium 4.5 Chloride 104.5 Carbon Dioxide 20 L Anion Gap 16 BUN 20 Creatinine 1.4 H Estimated GFR > 60 BUN/Creatinine Ratio 14 Glucose 132 H POC Glucose 133 H Calcium 9.1 Troponin T 0.028 TSH 02/17/21 22:25 WBC RBC Hgb Hct MCV MCH MCHC RDW Plt Count Lymph % (Auto) [place] % (Auto) Eos % (Auto) Baso % (Auto) Lymph # (Auto) [place] # (Auto) Eos # (Auto) Baso # (Auto) Seg Neutrophils % Seg Neutrophils # Sodium Potassium Chloride Carbon Dioxide Anion Gap BUN Creatinine Estimated GFR BUN/Creatinine Ratio Glucose POC Glucose Calcium Troponin T TSH 4.320 H - EKG Data -: EKG Interpreted by De EKG shows normal: sinus rhythm, axis, intervals, QRS complexes, ST-T waves (Nonspecific ST-T waves) Rate: normal - EKG Data When compared to previous EKG there are: no significant change Interpretation: unchanged when compared t (10/29/20) - Radiology Data Radiology results: report reviewed Right ankle, 3 views HISTORY: Injury COMPARISON: FINDINGS: Acute mildly comminuted displaced fracture of the distal right fibula at the syndesmosis. There is syndesmotic widening. Marked widening of the medial ankle gutter, measuring 2 cm. Small ossific fragment adjacent to the medial talar dome likely represents displaced medial malleolus fragment. No additional fracture. Diffuse soft tissue swelling. - Medical Decision Making This patient presents to the emergency department with a right ankle injury after he got dizzy and had a syncopal episode in the bathroom. At the time of our examination the patient is awake, alert, oriented and no longer complains of any dizziness or lightheadedness. He does have pain and swelling to the right ankle. X-ray shows a mildly comminuted distal fibula fracture, widening of the syndesmosis, and possible medial distal tibial fracture fragment. The orthopedist on-call has been contacted and consulted and will see the patient tomorrow with a plan for possible OR fixation on Friday. The OCL splint has been placed and the patient remains neurovascularly intact. EKG does not show any morphology of ST elevation myocardial infarction or any arrhythmia. Labs have been mostly unremarkable including CBC, metabolic panel, equivocal troponin, slightly elevated TSH level. The patient still has some hypertension but it has improved with some pain control. The rest the patient's vitals are reassuring including being afebrile. The patient will be admitted to the hospital for further evaluation and treatment and was accepted for admission by the hospitalist, Dr. Nazario. Critical Care Time: No Critical care attestation.: If time is entered above; I have spent that time in minutes in the direct care of this critically ill patient, excluding procedure time. ED Disposition Clinical Impression: Ankle fracture, right Qualifiers: Encounter type: initial encounter Fracture type: closed Qualified Code(s): S82.891A - Other fracture of right lower leg, initial encounter for closed fracture Hypertension Qualifiers: Hypertension type: primary hypertension Qualified Code(s): I10 - Essential (primary) hypertension Syncope Qualifiers: Syncope type: unspecified Qualified Code(s): R55 - Syncope and collapse Disposition: ADMITTED INPATIENT Is pt being admited?: Yes Condition: Fair Instructions: Syncope (ED), Hypertension (ED) Time of Disposition: 23:31
--- NOTE | 2021-02-17 22:01 | XRay Report ---
Right ankle, 3 views HISTORY: Injury COMPARISON: FINDINGS: Acute mildly comminuted displaced fracture of the distal right fibula at the syndesmosis. T here is syndesmotic widening. Marked widening of the medial ankle gutter, measuring 2 cm. Small ossif ic fragment adjacent to the medial talar dome likely represents displaced medial malleolus fragment. No additional fracture. Diffuse soft tissue swelling. Signer Name: Marcel Thao MD Signed: 02/17/2021 9:57 PM Workstation Name: [id number]
[2021-02-17 22:45] LABS: Basophils % (Auto) 0.3 % (0.0-1.8); Eosinophils # (Auto) 0.1 K/mm3 (0.0-0.4); Eosinophils % (Auto) 0.7 % (0.0-4.3); Hematocrit 39.1 % (35.5-45.6); Hemoglobin 12.2 gm/dl (11.8-15.2); Lymphocytes # (Auto) 1.1 K/mm3 (1.2-5.4); Lymphocytes % (Auto) 14.5 % (13.4-35.0); Mean Corpuscular HGB Conc 31 % (32-34); Mean Corpuscular Volume 84 fl (84-94); Monocytes # (Auto) 0.6 K/mm3 (0.0-0.8); Monocytes % (Auto) 7.6 % (0.0-7.3); Platelet Count 157 K/mm3 (140-440); Red Blood Count 4.67 M/mm3 (3.65-5.03)
[2021-02-17 22:47] LABS: Red Cell Distribution Width 20.1 % (13.2-15.2)
[2021-02-17 23:04] LABS: BUN/Creatinine Ratio 14; Blood Urea Nitrogen 20 mg/dL (9-20); Calcium 9.1 mg/dL (8.4-10.2); Hemolysis Index 16
[2021-02-17] MEDS ORDERED: fentaNYL 100 MCG/2 ML INJ IV ONE (23:33)
--- NOTE | 2021-02-18 01:37 | XRay Report ---
Right shoulder radiograph, 4 views HISTORY: Right shoulder pain COMPARISON: None FINDINGS: No acute fracture or malalignment. Moderate right AC osteoarthritis. Soft tissues are unrem arkable. Signer Name: Marcel Thao MD Signed: 02/18/2021 1:33 AM Workstation Name: [id number]
[2021-02-18] MEDS ORDERED: fentaNYL 100 MCG/2 ML INJ IV ONE (02:12)
[2021-02-18] MEDS ORDERED: ALBUTEROL 2.5 MG/3 ML NEBU IH PRN (02:14)
[2021-02-18] MEDS ORDERED: ONDANSETRON 4 MG/2 ML INJ IV PRN (02:14)
[2021-02-18] MEDS ORDERED: DEXTROSE 50% IN WATER (25GM) 50 ML SYRINGE IV PRN (02:14)
[2021-02-18] MEDS ORDERED: HYDROmorphone 1 MG/1 ML INJ IV PRN (02:14)
[2021-02-18] MEDS ORDERED: ACETAMINOPHEN 325 MG TAB PO PRN (02:14)
[2021-02-18] MEDS ORDERED: ALBUTEROL 8.5 GM MDI INHALATION IH PRN (02:19)
[2021-02-18] MEDS ORDERED: guaiFENesin DM 200/20 MG ORAL LIQD 10 ML PO PRN (02:19)
[2021-02-18] MEDS ORDERED: NITROGLYCERIN 0.4 MG TAB SUBL SL PRN (02:19)
--- NOTE | 2021-02-18 02:33 | History and Physical Report ---
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 The patient was watching [employer] and says that he ran down the hallway and went to use the bathroom. While in the bathroom he became dizzy and may have passed out and the right foot and ankle got wedged between the toilet and the bathtub. He presents with very elevated blood pressure but is also in a lot of discomfort. The patient received 4 mg of morphine in route with EMS. In the emergency room patient is found to have right ankle fracture. Subsequently Case was discussed with orthopedic's were going to admit the patient. Patient is going for surgery most likely on Friday. We also consult cardiology because patient has history of persistent Med rec is done Past History Past Medical History: diabetes, hypertension Medications and Allergies Allergies Allergy/AdvReac Type Severity Reaction Status Date / Time No Known Allergies Allergy Verified 02/17/21 21:14 Home Medications Medication Instructions Recorded Confirmed Last Taken Type Metformin HCl [Glucophage] 1,000 mg PO BID 04/04/16 01/20/20 1 Day Ago History ~03/26/18 Gabapentin 300 mg PO Q8HR 03/27/18 01/20/20 2 Days Ago History ~03/25/18 Aspirin EC [Halfprin EC] 81 mg PO QDAY #90 tablet. 05/08/19 01/20/20 Unknown Rx Nicotine [Habitrol] 14 mg TD QDAY #30 patch 05/08/19 01/20/20 Unknown Rx Nitroglycerin [Nitrostat] 0.4 mg SL Q5M PRN #30 tab 05/08/19 01/20/20 Unknown Rx Spironolactone [Aldactone] 25 mg PO QDAY #30 tablet 05/08/19 01/20/20 Unknown Rx carvediloL [Coreg] 12.5 mg PO BID #60 tablet 05/08/19 01/20/20 Unknown Rx hydrALAZINE [Apresoline TAB] 50 mg PO Q8HR 30 Days #180 tablet 05/08/19 01/20/20 Unknown Rx Furosemide [Lasix TAB] 40 mg PO QDAY #30 tablet 01/20/20 Unknown Rx ISOSORBIDE MONOnitrate [Imdur ER] 30 mg PO DAILY 01/20/20 01/20/20 Unknown History lisinopriL [Zestril TAB] 20 mg PO QDAY tablet 01/20/20 Unknown Rx Albuterol Mdi (or & Nicu Only) 2 puff IH QID PRN #8.5 gram 10/29/20 Unknown Rx [ProAir HFA Inhaler] Azithromycin [Zithromax Z-FRITZ] 0 mg PO DAILY #6 tab 10/29/20 Unknown Rx HYDROcodone/APAP 5-325 [[place] 1 - 2 each PO Q6HR PRN #10 tablet 10/29/20 Unk nown Rx 5/325] Prednisone [predniSONE 10 mg 10 mg PO .TAPER #1 tab.ds.pk 10/29/20 Unknown Rx (6-Day Pack, 21 Tabs)] guaiFENesin DM [Guaifenesin Dm 10 ml PO Q6H PRN #300 ml 10/29/20 Unknown Rx Syrup] Amoxicillin/Potassium Clav 1 each PO BID #14 tablet 12/11/20 Unknown Rx [Augmentin 875-125 Tablet] Active Meds: Active Medications Acetaminophen (Acetaminophen 325 Mg Tab) 650 mg PO Q4H PRN PRN Reason: Pain MILD(1-3)/Fever >100.5/NEFF Albuterol (Albuterol 2.5 Mg/3 Ml Nebu) 2.5 mg IH Q4HRT PRN PRN Reason: Shortness Of Breath Albuterol (Albuterol 8.5 Gm Mdi Inhalation) 2 puff IH QID PRN PRN Reason: Shortness Of Breath Albuterol/Ipratropium (Ipratropium/Albuterol Sulfate 3 Ml Ampul.Neb) 1 ampul IH Q6HRT [facility] Amoxicillin/Clavulanate Potassium (Amoxicillin/K Clav 875/125mg Tab) 1 each PO BID [facility]; Protocol Carvedilol (Carvedilol 12.5 Mg Tab) 12.5 mg PO BID [facility] Dextrose (Dextrose 50% In Water (25gm) 50 Ml Syringe) 50 ml IV Q30MIN PRN; Protocol PRN Reason: Hypoglycemia Famotidine (Famotidine 20 Mg Tab) 20 mg PO BID [facility] Furosemide (Furosemide 40 Mg Tab) 40 mg PO QDAY [facility] Gabapentin (Gabapentin 300 Mg Cap) 300 mg PO Q8HR [facility] Guaifenesin (Guaifenesin Dm 200/20 Mg Oral Liqd 10 Ml) 10 ml PO Q6H PRN PRN Reason: Cough Heparin Sodium (Porcine) (Heparin 5,000 Unit/1 Ml Vial) 5,000 unit SUB-Q Q8HR [facility] Hydralazine HCl (Hydralazine 25 Mg Tab) 50 mg PO Q8HR [facility] Hydromorphone HCl (Hydromorphone 1 Mg/1 Ml Inj) 0.5 mg IV Q3H PRN PRN Reason: Pain , Severe (7-10) Insulin Human Lispro (Insulin Lispro 100 Unit/Ml) 0 unit SUB-Q ACHS [facility]; Protocol Isosorbide Mononitrate (Isosorbide Mononitrate Er 30 Mg Tab) 30 mg PO DAILY [facility] Lisinopril (Lisinopril 20 Mg Tab) 20 mg PO QDAY [facility] Morphine Sulfate (Morphine 2 Mg/1 Ml Inj) 2 mg IV Q4H PRN PRN Reason: Pain, Moderate (4-6) Nicotine (Nicotine 14 Mg/24 Hr Patch) 14 mg TD QDAY [facility] Nitroglycerin (Nitroglycerin 0.4 Mg Tab Subl) 0.4 mg SL Q5M PRN PRN Reason: Chest Pain Ondansetron HCl (Ondansetron 4 Mg/2 Ml Inj) 4 mg IV Q8H PRN PRN Reason: Nausea And Vomiting Sodium Chloride (Sodium Chloride 0.9% 10 Ml Flush Syringe) 10 ml IV BID [facility] Sodium Chloride (Sodium Chloride 0.9% 10 Ml Flush Syringe) 10 ml IV PRN PRN PRN Reason: LINE FLUSH Spironolactone (Spironolactone 25 Mg Tab) 25 mg PO QDAY [facility] Review of Systems All systems: negative Cardiovascular: syncope, other (Dizzy passed out) Musculoskeletal: redness of joints, other (Right ankle pain and swelling) Exam - Constitutional Vitals: Temp Pulse Resp BP Pulse Ox 98.5 F 66 18 166/86 98 02/17/21 21:14 02/17/21 23:45 02/18/21 02:19 02/17/21 23:45 02/17/21 21:14 General appearance: Present: no acute distress, well-nourished - EENT Eyes: Present: PERRL ENT: hearing intact, clear oral mucosa - Neck Neck: Present: supple, normal ROM - Respiratory Respiratory effort: normal Respiratory: bilateral: CTA - Cardiovascular Heart Sounds: Present: S1 & S2. Absent: rub, click - Extremities Extremities: pulses symmetrical, No edema Extremity abnormal: edema, erythema, deformity (Right ankle pain and swelling), other Peripheral Pulses: within normal limits - Abdominal General gastrointestinal: Present: soft, non-tender, non-distended, normal bowel sounds Male genitourinary: Present: normal - Integumentary Integumentary: Present: clear, warm, dry - Musculoskeletal Musculoskeletal: gait normal, strength equal bilaterally - Psychiatric Psychiatric: appropriate mood/affect, intact judgment & insight - Neurologic Neurologic: CNII-XII intact, moves all extremities HEART Score - HEART Score Troponin: Troponin T 0.028 ng/mL (0.00-0.029) 02/17/21 22:25 Results - Labs CBC & Chem 7: 02/17/21 22:25 02/17/21 22:25 Labs: Laboratory Last Values WBC 7.8 K/mm3 (4.5-11.0) 02/17/21 22:25 RBC 4.67 M/mm3 (3.65-5.03) 02/17/21 22:25 Hgb 12.2 gm/dl (11.8-15.2) 02/17/21 22:25 Hct 39.1 % (35.5-45.6) 02/17/21 22:25 MCV 84 fl (84-94) 02/17/21 22:25 MCH 26 pg (28-32) L 02/17/21 22:25 MCHC 31 % (32-34) L 02/17/21 22:25 RDW 20.1 % (13.2-15.2) H 02/17/21 22:25 Plt Count 157 K/mm3 (140-440) 02/17/21 22:25 Lymph % (Auto) 14.5 % (13.4-35.0) 02/17/21 22:25 [place] % (Auto) 7.6 % (0.0-7.3) H 02/17/21 22:25 Eos % (Auto) 0.7 % (0.0-4.3) 02/17/21 22:25 Baso % (Auto) 0.3 % (0.0-1.8) 02/17/21 22:25 Lymph # (Auto) 1.1 K/mm3 (1.2-5.4) L 02/17/21 22:25 [place] # (Auto) 0.6 K/mm3 (0.0-0.8) 02/17/21 22:25 Eos # (Auto) 0.1 K/mm3 (0.0-0.4) 02/17/21 22:25 Baso # (Auto) 0.0 K/mm3 (0.0-0.1) 02/17/21 22:25 Seg Neutrophils % 76.9 % (40.0-70.0) H 02/17/21 22:25 Seg Neutrophils # 6.0 K/mm3 (1.8-7.7) 02/17/21 22:25 Sodium 136 mmol/L (137-145) L 02/17/21 22:25 Potassium 4.5 mmol/L (3.6-5.0) 02/17/21 22:25 Chloride 104.5 mmol/L (98-107) 02/17/21 22:25 Carbon Dioxide 20 mmol/L (22-30) L 02/17/21 22:25 Anion Gap 16 mmol/L 02/17/21 22:25 BUN 20 mg/dL (9-20) 02/17/21 22:25 Creatinine 1.4 mg/dL (0.8-1.3) H 02/17/21 22:25 Estimated GFR > 60 ml/min 02/17/21 22:25 BUN/Creatinine Ratio 14 % 02/17/21 22:25 Glucose 132 mg/dL (75-100) H 02/17/21 22:25 POC Glucose 133 mg/dL (70-105) H 02/17/21 21:51 Calcium 9.1 mg/dL (8.4-10.2) 02/17/21 22:25 Troponin T 0.028 ng/mL (0.00-0.029) 02/17/21 22:25 TSH 4.320 mlU/mL (0.270-4.200) H 02/17/21 22:25 - Imaging and Cardiology Chest x-ray: report reviewed Assessment and Plan VTE prophylaxis?: Chemical Plan of care discussed with patient/family: Yes - Patient Problems (1) Ankle fracture, right Current Visit: Yes Status: Acute Qualifiers: Encounter type: initial encounter Fracture type: closed Qualified Code(s): S82.891A - Other fracture of right lower leg, initial encounter for closed fracture Plan to address problem: Admit the patient to the medical telemetry. Cardiac diet/1800 kcal ADA diet. We consulted orthopedic DrBecky For possible surgery on Friday. N.p.o. after [facility] ght today. (2) Syncope Current Visit: Yes Status: Acute Qualifiers: Syncope type: unspecified Qualified Code(s): R55 - Syncope and collapse Plan to address problem: We will monitor the patient in the telemetry. Patient is on fall precaution. W e held the aspirin but will continue Coreg 12.5 mg p.o. twice daily Aldactone 25 mg p.o. daily. We consulted cardiology for evaluation and cardiac clearance (3) Hypertension Current Visit: Yes Status: Chronic Qualifiers: Hypertension type: primary hypertension Qualified Code(s): I10 - Essential (primary) hypertension Plan to address problem: Aldactone 25 mg p.o. daily, Coreg 12.5 mg p.o. twice daily, hydralazine 50 mg p.o. every 8 hours. Imdur 30 mg p.o. daily. We will monitor the blood pressure closely (4) Acute HFrEF (heart failure with reduced ejection fraction) Current Visit: No Status: Acute Plan to address problem: Stable. We will continue the home medication. Fluid restriction. Lasix 40 mg p.o. daily. Cardiology evaluation (5) CAD (coronary artery disease) Current Visit: No Status: Chronic Plan to address problem: Continue the home cardiac medication. Coreg 12.5 mg p.o. twice daily. Hydralazine 50 mg p.o. every 8 hours. Imdur 30 mg p.o. daily. Lisinopril 20 mg p.o. daily. Echocardiogram. Cardiology evaluation (6) Diabetes Current Visit: No Status: Chronic Plan to address problem: 1800 kcal ADA diet. Humalog sliding scale. Diabetic education (7) Hyperlipidemia Current Visit: No Status: Chronic Plan to address problem: We will continue the home cardiac medication. Lipitor 40 mg p.o. daily (8) DVT prophylaxis Current Visit: No Status: Acute Plan to address problem: Heparin 5000 units subcu every 8 hours for DVT prophylaxis. Pepcid 20 mg p.o. twice daily for GI prophylaxis. Patient is a full code
[2021-02-18] MEDS: GABAPENTIN 300 MG CAP PO SCH ×3 (05:19→21:32)
[2021-02-18] MEDS: HEPARIN 5,000 UNIT/1 ML VIAL SUB-Q SCH ×3 (05:20→21:32)
[2021-02-18] MEDS: hydrALAZINE 25 MG TAB PO SCH ×3 (05:21→21:32)
[2021-02-18] MEDS ORDERED: hydrALAZINE 20 MG/1 ML INJ IV ONE (07:33)
[2021-02-18] MEDS: INSULIN LISPRO 100 UNIT/ML SUB-Q SCH ×4 (08:19→22:15)
[2021-02-18] MEDS: IPRATROPIUM/ALBUTEROL SULFATE 3 ML AMPUL.NEB IH SCH ×3 (08:29→20:55)
[2021-02-18] MEDS: AMOXICILLIN/K CLAV 875/125MG TAB PO SCH ×2 (09:47→21:31)
[2021-02-18] MEDS: LISINOPRIL 20 MG TAB PO SCH (09:48)
[2021-02-18] MEDS: carvediloL 12.5 MG TAB PO SCH ×2 (09:48→21:31)
[2021-02-18] MEDS: NICOTINE 14 MG/24 HR PATCH TD SCH (09:48)
[2021-02-18] MEDS: FUROSEMIDE 40 MG TAB PO SCH (09:48)
[2021-02-18] MEDS: FAMOTIDINE 20 MG TAB PO SCH ×2 (09:48→21:32)
[2021-02-18] MEDS: SPIRONOLACTONE 25 MG TAB PO SCH (09:48)
--- NOTE | 2021-02-18 11:03 | Event Note ---
Date: 02/18/21 The patient was seen and evaluated this morning, and the patient was found to be hemodynamically stable. Patient was being evaluated by orthopedic surgery this morning, and the patient will undergo surgical intervention on 02/19/2021. Patient was restarted on home antihypertensives. Orders have been placed for morning labs including INR, and the patient will be made n.p.o. at midnight.
--- NOTE | 2021-02-18 12:39 | Consultation ---
History of Present Illness Consult date: 02/18/21 Requesting physician: SANDY LONGO Consult reason: syncope History of present illness: 60-year-old male with multiple medical problems including CAD/PCI 2016, ischemic cardiomyopathy EF 25 to 30%, hypertension, hyperlipidemia, chronic HFrEF, and obesity presents to [facility] emergency department after having a syncopal episode at home. The patient reports that he felt lightheaded and as if he was going to pass out. He went to the bathroom and sat on the toilet seat and subsequently lost consciousness when he awoke his foot was wedged between the toilet and the tub. X-ray here in the hospital revealed a right fibular fracture. Additionally the patient reports having another prior episode of syncope about 3 months ago that he believes was secondary to standing up too fast. Prior to this most recent syncopal episode he denies any chest pain or shortness of breath but do believe that his heart rate was beating rapidly prior to the event. Past History Past Medical History: diabetes, hypertension. denies: other (Per HPI) Past Surgical History: No surgical history Social history: no significant social history Family history: no significant family history Medications and Allergies Allergies Allergy/AdvReac Type Severity Reaction Status Date / Time No Known Allergies Allergy Verified 02/17/21 21:14 Home Medications Medication Instructions Recorded Confirmed Last Taken Type Metformin HCl [Glucophage] 1,000 mg PO BID 04/04/16 02/18/21 02/17/21 History Gabapentin 300 mg PO Q8HR 03/27/18 02/18/21 02/17/21 History Aspirin EC [Halfprin EC] 81 mg PO QDAY #90 tablet. 05/08/19 02/18/21 02/17/21 Rx Nicotine [Habitrol] 14 mg TD QDAY #30 patch 05/08/19 02/18/21 02/24/20 Rx Nitroglycerin [Nitrostat] 0.4 mg SL Q5M PRN #30 tab 05/08/19 02/18/21 02/24/20 Rx Spironolactone [Aldactone] 25 mg PO QDAY #30 tablet 05/08/19 02/18/21 02/17/21 Rx carvediloL [Coreg] 12.5 mg PO BID #60 tablet 05/08/19 02/18/21 02/17/21 Rx hydrALAZINE [Apresoline TAB] 50 mg PO Q8HR 30 Days #180 tablet 05/08/19 02/18/21 02/17/21 Rx Furosemide [Lasix TAB] 40 mg PO QDAY #30 tablet 01/20/20 02/18/21 02/24/20 Rx ISOSORBIDE MONOnitrate [Imdur ER] 30 mg PO DAILY 01/20/20 02/18/21 02/17/21 History lisinopriL [Zestril TAB] 20 mg PO QDAY tablet 01/20/20 02/18/21 02/24/20 Rx Albuterol Mdi (or & Nicu Only) 2 puff IH QID PRN #8.5 gram 10/29/20 02/18/21 02/24/20 Rx [ProAir HFA Inhaler] Azithromycin [Zithromax Z-FRITZ] 0 mg PO DAILY #6 tab 10/29/20 02/18/21 02/24/20 Rx HYDROcodone/APAP 5-325 [[place] 1 - 2 each PO Q6HR PRN #10 tablet 10/29/20 02/18/21 02/17/21 Rx 5/325] Prednisone [predniSONE 10 mg 10 mg PO .TAPER #1 tab.ds.pk 10/29/20 02/18/21 02/24/20 Rx (6-Day Pack, 21 Tabs)] guaiFENesin DM [Guaifenesin Dm 10 ml PO Q6H PRN #300 ml 10/29/20 02/18/21 1 04/25/19 Rx Syrup] Amoxicillin/Potassium Clav 1 each PO BID #14 tablet 12/11/20 02/18/21 02/24/20 Rx [Augmentin 875-125 Tablet] Active Meds: Active Medications Acetaminophen (Acetaminophen 325 Mg Tab) 650 mg PO Q4H PRN PRN Reason: Pain MILD(1-3)/Fever >100.5/NEFF Albuterol (Albuterol 2.5 Mg/3 Ml Nebu) 2.5 mg IH Q4HRT PRN PRN Reason: Shortness Of Breath Albuterol/Ipratropium (Ipratropium/Albuterol Sulfate 3 Ml Ampul.Neb) 1 ampul IH Q6HRT EDUARDO Last Admin: 02/18/21 08:29 Dose: 1 ampul Documented by: Amoxicillin/Clavulanate Potassium (Amoxicillin/K Clav 875/125mg Tab) 1 each PO BID [facility]; Protocol Last Admin: 02/18/21 09:47 Dose: 1 each Documented by: Atorvastatin Calcium (Atorvastatin 40 Mg Tab) 40 mg PO QHS [facility] Carvedilol (Carvedilol 12.5 Mg Tab) 12.5 mg PO BID [facility] Last Admin: 02/18/21 09:48 Dose: 12.5 mg Documented by: Dextrose (Dextrose 50% In Water (25gm) 50 Ml Syringe) 50 ml IV Q30MIN PRN; Protocol PRN Reason: Hypoglycemia Famotidine (Famotidine 20 Mg Tab) 20 mg PO BID [facility] Last Admin: 02/18/21 09:48 Dose: 20 mg Documented by: Furosemide (Furosemide 40 Mg Tab) 40 mg PO QDAY [facility] Last Admin: 02/18/21 09:48 Dose: 40 mg Documented by: Gabapentin (Gabapentin 300 Mg Cap) 300 mg PO Q8HR [facility] Last Admin: 02/18/21 05:19 Dose: 300 mg Documented by: Guaifenesin (Guaifenesin Dm 200/20 Mg Oral Liqd 10 Ml) 10 ml PO Q6H PRN PRN Reason: Cough Heparin Sodium (Porcine) (Heparin 5,000 Unit/1 Ml Vial) 5,000 unit SUB-Q Q8HR [facility] Last Admin: 02/18/21 05:20 Dose: 5,000 unit Documented by: Hydralazine HCl (Hydralazine 25 Mg Tab) 50 mg PO Q8HR [facility] Last Admin: 02/18/21 05:21 Dose: 50 mg Documented by: Hydromorphone HCl (Hydromorphone 1 Mg/1 Ml Inj) 0.5 mg IV Q3H PRN PRN Reason: Pain , Severe (7-10) Last Admin: 02/18/21 03:45 Dose: 0.5 mg Documented by: Insulin Human Lispro (Insulin Lispro 100 Unit/Ml) 0 unit SUB-Q [facility]; Protocol Last Admin: 02/18/21 11:10 Dose: 2 unit Documented by: Isosorbide Mononitrate (Isosorbide Mononitrate Er 30 Mg Tab) 30 mg PO DAILY [facility] Last Admin: 02/18/21 09:47 Dose: 30 mg Documented by: Lisinopril (Lisinopril 20 Mg Tab) 20 mg PO QDAY [facility] Last Admin: 02/18/21 09:48 Dose: 20 mg Documented by: Morphine Sulfate (Morphine 2 Mg/1 Ml Inj) 2 mg IV Q4H PRN PRN Reason: Pain, Moderate (4-6) Nicotine (Nicotine 14 Mg/24 Hr Patch) 14 mg TD QDAY [facility] Last Admin: 02/18/21 09:48 Dose: 14 mg Documented by: Nitroglycerin (Nitroglycerin 0.4 Mg Tab Subl) 0.4 mg SL Q5M PRN PRN Reason: Chest Pain Ondansetron HCl (Ondansetron 4 Mg/2 Ml Inj) 4 mg IV Q8H PRN PRN Reason: Nausea And Vomiting Last Admin: 02/18/21 03:45 Dose: 4 mg Documented by: Oxycodone/Acetaminophen (Oxycodone /Acetaminophen 5-325mg Tab) 2 tab PO Q4H PRN PRN Reason: Pain, Moderate (4-6) Sodium Chloride (Sodium Chloride 0.9% 10 Ml Flush Syringe) 10 ml IV BID [facility] Last Admin: 02/18/21 09:49 Dose: 10 ml Documented by: Sodium Chloride (Sodium Chloride 0.9% 10 Ml Flush Syringe) 10 ml IV PRN PRN PRN Reason: LINE FLUSH Spironolactone (Spironolactone 25 Mg Tab) 25 mg PO QDAY [facility] Last Admin: 02/18/21 09:48 Dose: 25 mg Documented by: Review of Systems Constitutional: no fever, no chills Ears, nose, mouth and throat: deferred Cardiovascular: palpitations, syncope, no chest pain, no orthopnea, no edema Respiratory: no cough, no shortness of breath Gastrointestinal: no abdominal pain, no nausea, no vomiting Genitourinary Male: no dysuria, no hematuria Integumentary: no rash Physical Examination Vital Signs Temp Pulse Resp BP Pulse Ox 98.5 F 81 18 200/118 98 02/17/21 21:14 02/17/21 21:14 02/17/21 21:14 02/17/21 21:14 02/17/21 21:14 General appearance: no acute distress HEENT: Positive: PERRL, EOMI Neck: Positive: neck supple, trachea midline Cardiac: Positive: Reg Rate and Rhythm Lungs: Positive: Normal Breath Sounds Neuro: Positive: Grossly Intact Abdomen: Positive: Soft, Active Bowel Sounds Male genitourinary: Positive: deferred Skin: Negative: Rash Extremities: Present: warm, Other (Rt foot in brace) Results 02/17/21 22:25 02/17/21 22:25 CBC 02/17/21 Range/Units 22:25 WBC 7.8 (4.5-11.0) K/mm3 RBC 4.67 (3.65-5.03) M/mm3 Hgb 12.2 (11.8-15.2) gm/dl Hct 39.1 (35.5-45.6) % Plt Count 157 (140-440) K/mm3 Lymph # (Auto) 1.1 L (1.2-5.4) K/mm3 [place] # (Auto) 0.6 (0.0-0.8) K/mm3 Eos # (Auto) 0.1 (0.0-0.4) K/mm3 Baso # (Auto) 0.0 (0.0-0.1) K/mm3 Comprehensive Metabolic Panel 02/17/21 Range/Units 22:25 Sodium 136 L (137-145) mmol/L Potassium 4.5 (3.6-5.0) mmol/L Chloride 104.5 (98-107) mmol/L Carbon Dioxide 20 L (22-30) mmol/L BUN 20 (9-20) mg/dL Creatinine 1.4 H (0.8-1.3) mg/dL Glucose 132 H (75-100) mg/dL Calcium 9.1 (8.4-10.2) mg/dL - Imaging and Cardiology Echo: report reviewed Assessment and Plan Echocardiogram 04/18/20: Mild concentric LVH, EF 25 to 30%, restrictive diastolic function Left heart catheterization 05/20: moderate nonobstructive CAD:, Right coronary dominant, patent distal stent in the RCA Syncope Right fibular fracture Ischemic cardiomyopathy Chronic HFrEF 25-30% CAD/PCI 2017 Diabetes Hypertension Hyperlipidemia Patient reports recent syncopal episode 3 months ago. I had a lengthy discus wally with him regarding my concern for possible SCD. He has anxiety associated with possibly proceeding with cardiac defibrillator. He states that he had a brother that had complications from the procedure. I requested that he reconsider. In the interim we will likely discharge the patient home with a LifeVest. Recurrent syncope, recommend telemetry monitoring From a heart failure perspective he is compensated, no evidence of unstable angina No obvious contraindication to proceeding with right fibular fracture repair
[2021-02-18] MEDS: oxyCODONE /ACETAMINOPHEN 5-325MG TAB PO PRN ×2 (13:30→21:31)
[2021-02-18] MEDS: IBUPROFEN 800 MG TAB PO SCH (23:41)
[2021-02-19 04:42] LABS: Basophils % (Auto) 0.4 % (0.0-1.8); Eosinophils # (Auto) 0.2 K/mm3 (0.0-0.4); Eosinophils % (Auto) 2.9 % (0.0-4.3); Hematocrit 37.1 % (35.5-45.6); Hemoglobin 11.6 gm/dl (11.8-15.2); Lymphocytes # (Auto) 1.5 K/mm3 (1.2-5.4); Lymphocytes % (Auto) 26.7 % (13.4-35.0); Mean Corpuscular HGB Conc 31 % (32-34); Mean Corpuscular Volume 84 fl (84-94); Monocytes # (Auto) 0.6 K/mm3 (0.0-0.8); Monocytes % (Auto) 11.3 % (0.0-7.3); Platelet Count 164 K/mm3 (140-440); Red Blood Count 4.42 M/mm3 (3.65-5.03)
[2021-02-19 04:44] LABS: Red Cell Distribution Width 20.1 % (13.2-15.2)
[2021-02-19 04:51] LABS: INR 1.11 (0.87-1.13)
[2021-02-19 04:54] LABS: Calcium 8.9 mg/dL (8.4-10.2)
[2021-02-19] MEDS: hydrALAZINE 25 MG TAB PO SCH ×3 (06:01→22:03)
[2021-02-19] MEDS: GABAPENTIN 300 MG CAP PO SCH ×3 (06:02→22:03)
[2021-02-19] MEDS: MORPHINE 2 MG/1 ML INJ IV PRN ×2 (06:09→11:41)
[2021-02-19] MEDS: IPRATROPIUM/ALBUTEROL SULFATE 3 ML AMPUL.NEB IH SCH ×3 (08:09→21:20)
[2021-02-19] MEDS: INSULIN LISPRO 100 UNIT/ML SUB-Q SCH ×4 (08:26→22:00)
--- NOTE | 2021-02-19 08:54 | Electrocardiograph Report ---
[facility] Test Date: 2021-02-17 Test Time: 23:18:34 Pat Name: ALONDRA ERIWN Department: Room: A373 1 Gender: M Registry Nurse: ROD : 1960 Requested By: JAN SHTEH Order Number: [id number] Reading MD: Benigno Crenshaw Measurements Intervals [place] Rate: 65 P: 48 OK: 199 QRS: 73 QRSD: 100 T: 22 QT: 434 QTc: 451 Interpretive Statements Sinus rhythm Left atrial enlargement Probable lateral infarct, old Compared to ECG 10/29/2020 06:11:37 Myocardial infarct finding now present Electronically Signed On 02-19-2021 8:53:51 EST by Benigno Crenshaw
--- NOTE | 2021-02-19 10:09 | Progress Note ---
Assessment and Plan Assessment and plan: Patient is a 60-year-old male with past medical history of CAD complicated by PCI 2017, ischemic cardiomyopathy EF 25-30%, hypertension, hyperlipidemia, chronic systolic heart failure, and obesity who presented after an episode of syncope complicated by a ground-level fall. Patient was found to have a mildly comminuted displaced fracture of the distal right fibula. #Right ankle fracture #Comminuted displaced fracture of distal right fibula -Continue analgesic therapy -Orthopedic surgery consulted; appreciate recs. Pending surgical repair today (02/19/2021). -Currently n.p.o. until procedure. Afterwards, patient can be restarted on cardiac diet. -Consulting physical therapy for evaluation after surgical intervention; pending recs #Syncope -Continue remote telemetry -Cardiology consulted; appreciate recs. Patient's ct mri technologist is Dr. Crenshaw. -Patient evaluated by cardiology prior to surgical intervention, and patient is okay to proceed. -Cardiology recommended defibrillator placement; however, patient is apprehensive given prior experience with brother ( from complications). Patient will be discharging home with [facility] and close follow-up with cardiology. Patient expressed understanding. #Hypertension #Ischemic cardiomyopathy #Chronic systolic heart failure #Hyperlipidemia -Cardiology on board; appreciate recs -Continue home Coreg 12.5 mg twice daily, spironolactone 25 mg daily, p.o. hyd ralazine 50 mg every 8 hours, Imdur 30 mg daily, Lasix 40 mg daily, lisinopril 20 mg daily, and atorvastatin 40 mg daily. -Continue to monitor #Cum-zvqdyux-ldhybsvai diabetes mellitus type 2 -Continue moderate SSI and Accu-Cheks nightly -Blood glucose goal [id number] while inpatient continue to monitor -Home medication: Metformin 1000 mg twice daily. Holding in the setting of p rocedures. Can restart prior to discharge. #Obesity #Weight loss counseling #Exercise counseling #Dietary counseling -BMI 40 -Counseled patient about importance of dietary changes, exercise, and overall weight loss given multiple comorbidities. Patient expressed understanding. -Time: +15 minutes #Advanced care planning -Disease education conducted, care plan discussed, diagnoses discussed, prognosis discussed, and patient acknowledges understanding with care plan -Time: +30 minutes Disposition Plan: Continue medical management Total Time Spent with Patient (Minutes): 45 minutes History Interval history: No acute events overnight. Hospitalist Physical - Constitutional Vitals: Temp Pulse Resp BP Pulse Ox 98.6 F 59 L 18 148/84 96 02/19/21 06:03 02/19/21 06:03 02/19/21 06:03 02/19/21 06:03 02/19/21 06:03 General appearance: Present: no acute distress, well-nourished, obese - EENT Eyes: Present: PERRL, EOM intact ENT: hearing intact, clear oral mucosa, dentition normal - Neck Neck: Present: supple, normal ROM - Respiratory Respiratory effort: normal Respiratory: bilateral: CTA - Cardiovascular Rhythm: regular Heart Sounds: Present: S1 & S2 - Extremities Extremities: no ischemia, pulses intact, pulses symmetrical, No edema, normal temperature, normal color Extremity abnormal: tenderness (Severe tenderness of upper, lateral right upper extremity with edema present. Moderate tenderness of right ankle) Peripheral Pulses: within normal limits - Abdominal General gastrointestinal: soft, non-tender, non-distended, normal bowel sounds - Integumentary Integumentary: Present: clear, warm, dry - Psychiatric Psychiatric: appropriate mood/affect, intact judgment & insight, memory intact, cooperative - Neurologic Neurologic: CNII-XII intact, moves all extremities - Allied Health Allied health notes reviewed: nursing HEART Score - HEART Score Troponin: Troponin T 0.028 ng/mL (0.00-0.029) 02/17/21 22:25 Results - Labs CBC & Chem 7: 02/19/21 04:26 02/19/21 04:26 Labs: Laboratory Last Values WBC 5.8 K/mm3 (4.5-11.0) 02/19/21 04:26 RBC 4.42 M/mm3 (3.65-5.03) 02/19/21 04:26 Hgb 11.6 gm/dl (11.8-15.2) L 02/19/21 04:26 Hct 37.1 % (35.5-45.6) 02/19/21 04:26 MCV 84 fl (84-94) 02/19/21 04:26 MCH 26 pg (28-32) L 02/19/21 04:26 MCHC 31 % (32-34) L 02/19/21 04:26 RDW 20.1 % (13.2-15.2) H 02/19/21 04:26 Plt Count 164 K/mm3 (140-440) 02/19/21 04:26 Lymph % (Auto) 26.7 % (13.4-35.0) 02/19/21 04:26 [place] % (Auto) 11.3 % (0.0-7.3) H 02/19/21 04:26 Eos % (Auto) 2.9 % (0.0-4.3) 02/19/21 04:26 Baso % (Auto) 0.4 % (0.0-1.8) 02/19/21 04:26 Lymph # (Auto) 1.5 K/mm3 (1.2-5.4) 02/19/21 04:26 [place] # (Auto) 0.6 K/mm3 (0.0-0.8) 02/19/21 04:26 Eos # (Auto) 0.2 K/mm3 (0.0-0.4) 02/19/21 04:26 Baso # (Auto) 0.0 K/mm3 (0.0-0.1) 02/19/21 04:26 Seg Neutrophils % 58.7 % (40.0-70.0) 02/19/21 04:26 Seg Neutrophils # 3.4 K/mm3 (1.8-7.7) 02/19/21 04:26 PT 15.5 Sec. (12.2-14.9) H 02/19/21 04:26 INR 1.11 (0.87-1.13) 02/19/21 04:26 Sodium 136 mmol/L (137-145) L 02/19/21 04:26 Potassium 4.1 mmol/L (3.6-5.0) 02/19/21 04:26 Chloride 103.1 mmol/L (98-107) 02/19/21 04:26 Carbon Dioxide 21 mmol/L (22-30) L 02/19/21 04:26 Anion Gap 16 mmol/L 02/19/21 04:26 BUN 22 mg/dL (9-20) H 02/19/21 04:26 Creatinine 1.7 mg/dL (0.8-1.3) H 02/19/21 04:26 Estimated GFR 50 ml/min 02/19/21 04:26 BUN/Creatinine Ratio 13 % 02/19/21 04:26 Glucose 119 mg/dL (75-100) H 02/19/21 04:26 POC Glucose 124 mg/dL (70-105) H 02/19/21 07:49 Calcium 8.9 mg/dL (8.4-10.2) 02/19/21 04:26 Phosphorus 4.40 mg/dL (2.5-4.5) 02/19/21 04:26 Magnesium 2.10 mg/dL (1.7-2.3) 02/19/21 04:26 Troponin T 0.028 ng/mL (0.00-0.029) 02/17/21 22:25 TSH 4.320 mlU/mL (0.270-4.200) H 02/17/21 22:25 Free T4 1.48 ng/dL (0.76-1.46) H 02/18/21 Unknown Solomon/IV: Voiding Method Urinal Active Medications - Current Medications Current Medications: Generic Name Dose Route Start Last Admin Trade Name Freq PRN Reason Stop Dose Admin Acetaminophen 650 mg 02/18/21 02:14 Acetaminophen 325 Mg Tab PO Q4H PRN Pain MILD(1-3)/Fever >100.5/NEFF Albuterol 2.5 mg 02/18/21 02:14 Albuterol 2.5 Mg/3 Ml Nebu IH Q4HRT PRN Shortness Of Breath Albuterol/Ipratropium 1 ampul 02/19/21 08:00 02/19/21 08:09 Ipratropium/Albuterol Sulfate 3 Ml Ampul.Neb IH 1 ampul TIDRT EDUARDO Administration Atorvastatin Calcium 40 mg 02/18/21 22:00 02/18/21 21:31 Atorvastatin 40 Mg Tab PO 40 mg QHS EDUARDO Administration Carvedilol 12.5 mg 02/18/21 10:00 02/18/21 21:31 Carvedilol 12.5 Mg Tab PO 12.5 mg BID EDUARDO Administration Dextrose 50 ml 02/18/21 02:14 Dextrose 50% In Water (25gm) 50 Ml Syringe IV Q30MIN PRN Hypoglycemia Protocol Famotidine 20 mg 02/18/21 10:00 02/18/21 21:32 Famotidine 20 Mg Tab PO 20 mg BID EDUARDO Administration Furosemide 40 mg 02/18/21 10:00 02/18/21 09:48 Furosemide 40 Mg Tab PO 40 mg QDAY EDUARDO Administration Gabapentin 300 mg 02/18/21 06:00 02/19/21 06:02 Gabapentin 300 Mg Cap PO 300 mg Q8HR EDUARDO Administration Guaifenesin 10 ml 02/18/21 02:19 Guaifenesin Dm 200/20 Mg Oral Liqd 10 Ml PO Q6H PRN Cough Heparin Sodium (Porcine) 5,000 unit 02/18/21 06:00 02/18/21 21:32 Heparin 5,000 Unit/1 Ml Vial SUB-Q 5,000 unit Q8HR EDUARDO Administration Hydralazine HCl 50 mg 02/18/21 06:00 02/19/21 06:01 Hydralazine 25 Mg Tab PO 50 mg Q8HR EDUARDO Administration Hydromorphone HCl 0.5 mg 02/18/21 02:14 02/18/21 03:45 Hydromorphone 1 Mg/1 Ml Inj IV 0.5 mg Q3H PRN Administration Pain , Severe (7-10) Ibuprofen 800 mg 02/18/21 23:00 02/18/21 23:41 Ibuprofen 800 Mg Tab PO 800 mg Q12HR [facility] Administration Insulin Human Lispro 0 unit 02/18/21 07:30 02/19/21 08:26 Insulin Lispro 100 Unit/Ml SUB-Q Not Given [facility] Protocol Isosorbide Mononitrate 30 mg 02/18/21 10:00 02/18/21 09:47 Isosorbide Mononitrate Er 30 Mg Tab PO 30 mg DAILY [facility] Administration Lisinopril 20 mg 02/18/21 10:00 02/18/21 09:48 Lisinopril 20 Mg Tab PO 20 mg QDAY [facility] Administration Morphine Sulfate 2 mg 02/18/21 02:14 02/19/21 06:09 Morphine 2 Mg/1 Ml Inj IV 2 mg Q4H PRN Administration Pain, Moderate (4-6) Nicotine 14 mg 02/18/21 10:00 02/18/21 09:48 Nicotine 14 Mg/24 Hr Patch TD 14 mg QDAY [facility] Administration Nitroglycerin 0.4 mg 02/18/21 02:19 Nitroglycerin 0.4 Mg Tab Subl SL Q5M PRN Chest Pain Ondansetron HCl 4 mg 02/18/21 02:14 02/18/21 03:45 Ondansetron 4 Mg/2 Ml Inj IV 4 mg Q8H PRN Administration Nausea And Vomiting Oxycodone/Acetaminophen 2 tab 02/18/21 11:09 02/18/21 21:31 Oxycodone /Acetaminophen 5-325mg Tab PO 2 tab Q4H PRN Administration Pain, Moderate (4-6) Sodium Chloride 10 ml 02/18/21 10:00 02/18/21 21:39 Sodium Chloride 0.9% 10 Ml Flush Syringe IV 10 ml BID EDUARDO Administration Sodium Chloride 10 ml 02/18/21 02:14 Sodium Chloride 0.9% 10 Ml Flush Syringe IV PRN PRN LINE FLUSH Spironolactone 25 mg 02/18/21 10:00 02/18/21 09:48 Spironolactone 25 Mg Tab PO 25 mg QDAY EDUARDO Administration Nutrition/Malnutrition Assess - Dietary Evaluation Nutrition/Malnutrition Findings: Nutrition Notes Start: 02/18/21 11:23 Freq: Status: Active Protocol: Document 02/18/21 11:23 (Rec: 02/18/21 11:25 [id number]) Nutrition Notes Need for Assessment generated from: MD Order,Education Initial or Follow up Brief Note Current Diagnosis Coronary Artery Disease, Diabetes,Hypertension,Heart Failure,Hyperlipidemia Other Pertinent Diagnosis right ankle fracture Current Diet Consistent CHO Labs/Tests BP 157/80 BG POC 166 Subjective/Other Information MD consult for diet education. Unable to contact pt. Nutrition Intervention Follow-Up By: 02/21/21 Additional Comments F/u: diet education
--- NOTE | 2021-02-19 11:07 | Anesthesia Consultation ---
<TOBY CARNEY - Last Filed: 02/19/21 11:02> Anesthesia Consult and Med Hx Date of service: 02/19/21 - Airway Anesthetic Teeth Evaluation: Poor (Multiple missing teeth) ROM Head & Neck: Adequate Mental/Hyoid Distance: Adequate Mallampati Class: Class III Intubation Access Assessment: Possibly Difficult - Pulmonary Exam CTA: Yes - Pre-Operative Health Status ASA Pre-Surgery Classification: ASA3 Proposed Anesthetic Plan: General - Pulmonary Hx Smoking: Yes Hx Asthma: No Hx Respiratory Symptoms: No COPD: No Hx Pneumonia: No Hx Sleep Apnea: No - Cardiovascular System Hx Hypertension: Yes Hx Coronary Artery Disease: Yes Hx Heart Attack/AMI: No Hx Angina: Yes Hx Percutaneous Transluminal Coronary Angioplasty (PTCA): Yes (One vessel in 2017) Hx Pacemaker: No Hx Internal Defibrillator: No - Central Nervous System Hx Neuromuscular Disorder: No Hx Seizures: No CVA: No Hx Psychiatric Problems: No - Gastrointestinal Hx Gastroesophageal Reflux Disease: No - Endocrine Hx Renal Disease: No Hx Liver Disease: No Hx Non-Insulin Dependent Diabetes: Yes (Blood glucose- 126mg/dl) Hx Thyroid Disease: No - Hematic Hx Sickle Cell Disease: No - Other Systems Hx Alcohol Use: No Hx Substance Use: No Hx Cancer: No Hx Obesity: Yes - Additional Comments Anesthesia Medical History Comments: Hx. of CHF with with low EF and occasional syncope. Denied previous anesthesia complication. <TRINITY HAM - Last Filed: 02/19/21 14:22> Anesthesia Consult and Med Hx - Pre-Operative Health Status ASA Pre-Surgery Classification: ASA4
--- NOTE | 2021-02-19 11:12 | Anesthesia Day of Surgery ---
Anesthesia Day of Surgery - Day of Surgery Patient Examined: Yes Patient H&P Reviewed: Yes Patient is NPO: Yes Beta Blockers: No Cardiac Clearance: Yes Pulmonary Clearance: No
[2021-02-19] MEDS: SPIRONOLACTONE 25 MG TAB PO SCH (11:28)
[2021-02-19] MEDS: FAMOTIDINE 20 MG TAB PO SCH ×2 (11:29→22:04)
[2021-02-19] MEDS: IBUPROFEN 800 MG TAB PO SCH ×2 (11:29→22:03)
[2021-02-19] MEDS: carvediloL 12.5 MG TAB PO SCH ×2 (11:29→22:02)
[2021-02-19] MEDS: LISINOPRIL 20 MG TAB PO SCH (12:04)
[2021-02-19] MEDS: NICOTINE 14 MG/24 HR PATCH TD SCH (12:04)
[2021-02-19] MEDS: FUROSEMIDE 40 MG TAB PO SCH (12:04)
--- NOTE | 2021-02-19 13:24 | Progress Note ---
Assessment and Plan Echocardiogram 04/18/20: Mild concentric LVH, EF 25 to 30%, restrictive diastolic function Left heart catheterization 05/20: moderate nonobstructive CAD:, Right coronary dominant, patent distal stent in the RCA Syncope Right fibular fracture Ischemic cardiomyopathy Chronic HFrEF 25-30% CAD/PCI 2017 Diabetes Hypertension Hyperlipidemia LifeVest order placed. Discussed with patient the importance of LifeVest. Patient agreeable to LifeVest Recurrent syncope, recommend telemetry monitoring From a heart failure perspective he is compensated, no evidence of unstable angina No obvious contraindication to proceeding with right fibular fracture repair Continue present management Patient seen in conjunction with Dr. Crenshaw who agrees with this plan of care. We will continue to follow - Patient Problems (1) Ankle fracture, right Current Visit: Yes Status: Acute Qualifiers: Encounter type: initial encounter Fracture type: closed Qualified Code(s): S82.891A - Other fracture of right lower leg, initial encounter for closed fracture (2) Syncope Current Visit: Yes Status: Acute Qualifiers: Syncope type: unspecified Qualified Code(s): R55 - Syncope and collapse (3) Hypertension Current Visit: Yes Status: Chronic Qualifiers: Hypertension type: primary hypertension Qualified Code(s): I10 - Essential (primary) hypertension (4) CAD (coronary artery disease) Current Visit: No Status: Chronic (5) Cardiomyopathy Current Visit: No Status: Chronic (6) Hyperlipidemia Current Visit: No Status: Chronic (7) Medical non-compliance Current Visit: No Status: Chronic Subjective Date of service: 02/19/21 Principal diagnosis: rt foot injury Interval history: Patient resting in bed in no acute distress. Patient has no cardiac complaints. Awaiting surgery Sinus 61 on monitor Objective Vital Signs Temp Pulse Pulse Resp Resp BP Pulse Ox 02/19/21 12:42 98.8 F 66 18 158/88 92 02/19/21 08:09 67 20 96 02/19/21 06:03 98.6 F 59 L 18 148/84 96 02/19/21 06:01 158/84 02/18/21 22:40 95 02/18/21 22:33 99.4 F 67 18 150/84 97 02/18/21 20:55 65 18 02/18/21 19:30 97 02/18/21 17:07 99.6 F 67 18 150/92 93 02/18/21 13:30 67 18 129/76 02/18/21 13:29 68 20 - Physical Examination General: No Apparent Distress HEENT: Positive: PERRL, EOMI Neck: Positive: neck supple, trachea midline Cardiac: Positive: Reg Rate and Rhythm Lungs: Positive: Normal Breath Sounds Neuro: Positive: Grossly Intact Abdomen: Positive: Soft, Active Bowel Sounds Skin: Negative: Rash Extremities: Present: warm, Other (Rt foot in brace) - Labs and Meds Coagulation 02/19/21 Range/Units 04:26 PT 15.5 H (12.2-14.9) Sec. INR 1.11 (0.87-1.13) CBC 02/19/21 Range/Units 04:26 WBC 5.8 (4.5-11.0) K/mm3 RBC 4.42 (3.65-5.03) M/mm3 Hgb 11.6 L (11.8-15.2) gm/dl Hct 37.1 (35.5-45.6) % Plt Count 164 (140-440) K/mm3 Lymph # (Auto) 1.5 (1.2-5.4) K/mm3 [place] # (Auto) 0.6 (0.0-0.8) K/mm3 Eos # (Auto) 0.2 (0.0-0.4) K/mm3 Baso # (Auto) 0.0 (0.0-0.1) K/mm3 Comprehensive Metabolic Panel 02/19/21 Range/Units 04:26 Sodium 136 L (137-145) mmol/L Potassium 4.1 (3.6-5.0) mmol/L Chloride 103.1 (98-107) mmol/L Carbon Dioxide 21 L (22-30) mmol/L BUN 22 H (9-20) mg/dL Creatinine 1.7 H (0.8-1.3) mg/dL Glucose 119 H (75-100) mg/dL Calcium 8.9 (8.4-10.2) mg/dL - Imaging and Cardiology Echo: report reviewed - Telemetry EKG Rhythm: Sinus Rhythm - EKG Sinus rhythms and dysrhythmias: sinus rhythm
[2021-02-19] MEDS ORDERED: LACTATED RINGERS 1,000 ML ONE (14:06)
[2021-02-19] MEDS ORDERED: BUPIVACAINE/PF (0.25%) 2.5 MG/ML 30 ML VIAL INFILTRATI ONE (14:11)
[2021-02-19] MEDS ORDERED: LIDOCAINE (1%) 10 MG/1 ML VIAL 20 ML MDV ONE (14:12)
[2021-02-19] MEDS ORDERED: dexAMETHasone 4 MG/ML VIAL ONE (14:12)
[2021-02-19] MEDS: LACTATED RINGERS 1,000 ML IV SCH (14:20)
[2021-02-19] MEDS ORDERED: MIDAZOLAM 2 MG/2 ML INJ ONE (14:27)
[2021-02-19] MEDS ORDERED: fentaNYL 100 MCG/2 ML INJ ONE (14:27)
[2021-02-19] MEDS ORDERED: dexAMETHasone 20 MG/5 ML VIAL ONE (14:47)
[2021-02-19] MEDS ORDERED: LIDOCAINE MPF (2%) 20 MG/1 ML VIAL 5 ML ONE (14:47)
[2021-02-19] MEDS ORDERED: propofoL 200 MG/20 ML VIAL IV ONE (14:47)
[2021-02-19] MEDS ORDERED: KETOROLAC 30 MG/1 ML INJ ONE (14:47)
[2021-02-19] MEDS ORDERED: ONDANSETRON 4 MG/2 ML INJ ONE (14:47)
[2021-02-19] MEDS ORDERED: ePHEDrine SULFATE 50 MG/1 ML INJ ONE (15:36)
[2021-02-19] MEDS ORDERED: KETAMINE/STERILE WATER 50 MG/ML SYRINGE ONE (16:00)
[2021-02-19] MEDS ORDERED: SODIUM CHLORIDE 0.9% IRR 1,500 ML BOTTLE IR ONE (16:00)
[2021-02-19] MEDS: HEPARIN 5,000 UNIT/1 ML VIAL SUB-Q SCH ×3 (17:07→22:10)
[2021-02-19] MEDS: hydrALAZINE 20 MG/1 ML INJ IV PRN (17:41)
--- NOTE | 2021-02-19 17:49 | Operative Report ---
Operative Report Operative Report: Preop diagnosis : Lateral malleolus fracture with disruption of syndesmosis, RIGHT ankle Postop diagnosis: SAME Procedure: 1. Open reduction internal fixation, lateral malleolus fracture, RIGHT ankle 2. Syndesmosis repair , RIGHT ankle Surgeon: Landon Elise MD Anesthesia: General with ET tube /with additional regional block DETAILS of Operative Technique: The patient was prepared in the outpatient holding area and then brought to the operating room where he underwent a regional block for the right ankle ,along with general anesthesia utilizing an ETT. He was placed in the supine position and all pressure points were well- padded. The RIGHT leg and ankle/foot were prepped and draped in usual sterile fashion utilizing ChloraPrep solution. The extremity was then elevated ,exsanguinated with an Esmarch bandage and the tourniquet was inflated to 300 mmHg. A timeout was then called by the circulating nurse and once again the correct site was identified. C arm images were utilized throughout the entire case. Patient was noted to have an oblique fracture of the lateral malleolus just above the joint line out comminution or significant displacement. The mortise was however unstable when tested and viewed with C arm thereby confirming disruption of the syndesmosis. A straight lateral incision was made centered over the fracture site to expose the lateral malleolus fracture. Dissection was carried down through the fibrofatty layer and the fracture hematoma and debris was evacuated. Utilizing fracture clamps the distal fragment was reduced to an anatomic position. Utilizing a 7 hole one third semitubular plate, the fracture was stabilized with a combination of 3.5 mm cortical and locking screws. The operative C arm images confirmed anatomic alignment with rigid stabilization of the fracture. Through the third hole from the top of the plate, a 3.5 mm cortical screw 55 mm in length was utilized as a syndesmosis screw. This was accomplished by over drilling with a 3.5 mm drill the lateral cortices of the fibula and tibia. This achieved a technically excellent lag effect to restore the syndesmosis. Final C arm images were taken and saved. The wound was then irrigated copiously with normal saline. Fascial layer was closed with individual sutures of 0 Vicryl. The subcu layer was closed with 0 Vicryl suture and the skin was reapproximated with a subcuticular running suture of absorbable nylon . Steri-Strips were then applied to the skin and a Xeroform dressing was then placed followed by an ABD pad which was secured with a Kerlix and an Clyde wrap. The patient was then awakened and taken to recovery room in excellent condition. Drains: None Complications: None Tourniquet time: < 60 minutes
--- NOTE | 2021-02-19 17:49 | XRay Report ---
3 fluoroscopic images submitted Indication: Intraoperative localization Impression: 3 images of the right ankle were submitted for documentation purposes with radiology inv olvement. Lateral malleolus and transcend is moderate fixation. No complication. Please refer to th e operative note for complete details. Fluoroscopic time: 0.7 minutes Signer Name: Antwon Dyson MD Signed: 02/19/2021 5:44 PM Workstation Name: [id number]
--- NOTE | 2021-02-19 18:43 | Post Anesthesia Evaluation ---
- Post Anesthesia Evaluation Patient Participated: Yes Airway Patent: Yes Stable Respiratory Function: Yes Nausea/Vomiting: No Temp > 96.8F: Yes Pain Manageable: Yes Adequeate Hydration: Yes Anesthesia Complications: No Block Receding Appropriately: Yes
[2021-02-20] MEDS: hydrALAZINE 20 MG/1 ML INJ IV PRN (01:30)
[2021-02-20] MEDS: LACTATED RINGERS 1,000 ML IV SCH (02:33)
[2021-02-20] MEDS: MORPHINE 2 MG/1 ML INJ IV PRN ×2 (02:33→12:26)
[2021-02-20] MEDS: ceFAZolin/NS 1 GM/50 ML 1 GM/50 ML BAG IV SCH ×2 (04:18→08:59)
[2021-02-20] MEDS: hydrALAZINE 25 MG TAB PO SCH ×3 (05:00→22:12)
[2021-02-20] MEDS: HEPARIN 5,000 UNIT/1 ML VIAL SUB-Q SCH ×3 (05:32→22:13)
[2021-02-20] MEDS: GABAPENTIN 300 MG CAP PO SCH ×3 (05:32→22:12)
[2021-02-20 06:25] LABS: Basophils % (Auto) 0.1 % (0.0-1.8); Lymphocytes # (Auto) 0.7 K/mm3 (1.2-5.4); Lymphocytes % (Auto) 10.7 % (13.4-35.0); Mean Corpuscular HGB Conc 31 % (32-34); Mean Corpuscular Volume 84 fl (84-94); Monocytes # (Auto) 0.6 K/mm3 (0.0-0.8); Platelet Count 172 K/mm3 (140-440); Red Blood Count 4.63 M/mm3 (3.65-5.03)
[2021-02-20 06:41] LABS: Hematocrit 38.8 % (35.5-45.6); Hemoglobin 11.9 gm/dl (11.8-15.2); Red Cell Distribution Width 20.7 % (13.2-15.2)
[2021-02-20 06:46] LABS: Calcium 8.8 mg/dL (8.4-10.2)
--- NOTE | 2021-02-20 07:23 | Progress Note ---
Assessment and Plan Assessment and plan: 60-year-old male with past medical history of CAD status post PCI in 2017, ischemic cardiomyopathy EF 25 to 30%, hypertension and obesity who presented after a syncopal episode. He had a ground-level fall as a result and sustained a displaced fracture of the distal right fibula. #Right ankle fracture #Comminuted displaced fracture of distal right fibula -Postop day 1: s/p open reduction and internal fixation of right lateral malleolus fracture -Physical therapy evaluation -As needed pain control; s/p regional block -Management per orthopedic surgery, assistance appreciated #Syncope -Continue telemetry -Cardiology following, assistance appreciated -Patient to be discharged with LifeVest, will be delivered to bedside today #Hypertension #Ischemic cardiomyopathy #Chronic combined systolic and diastolic heart failure #Hyperlipidemia -TTE 01/2021: LVEF 20 to 25% with severe diastolic dysfunction -Continue Coreg, Aldactone, hydralazine, Imdur, lisinopril and Lasix -Continue statin daily -We will continue to monitor #Type 2 diabetes mellitus -Continue sliding scale and Accu-Cheks #Obesity -BMI 40 Disposition Plan: Pending physical therapy evaluation Total Time Spent with Patient (Minutes): 20 minutes History Interval history: No acute events overnight. Patient reports having numbness from the knee below of the right lower extremity which has been persistent since surgery yesterday. Also has pain in the right arm in the area which he fell. No other complaints at this time. Hospitalist Physical - Physical exam Narrative exam: GENERAL: Well-developed well-nourished. Lying in bed in no acute distress. CHEST/LUNGS: CTAB on room air HEART/CARDIOVASCULAR: RRR. No murmur, rubs or gallops appreciated. ABDOMEN: +BS. NT/ND. SKIN: No rashes noted. NEURO: No focal motor deficit. Follows all commands and is ambulatory. MUSCULOSKELETAL: No joint effusion. Right upper arm tender to palpation. EXTREMITIES: Right lower extremity wrapped in [place] bandage. Limited range of motion due to lack of sensation. PSYCH: Cooperative. - Constitutional Vitals: Temp Pulse Resp BP Pulse Ox 97.9 F 76 18 133/59 92 02/20/21 05:25 02/20/21 05:25 02/20/21 05:25 02/20/21 05:25 02/20/21 05:25 General appearance: Present: no acute distress, well-nourished, obese HEART Score - HEART Score Troponin: Troponin T 0.028 ng/mL (0.00-0.029) 02/17/21 22:25 Results - Labs CBC & Chem 7: 02/20/21 05:40 02/20/21 05:40 Labs: Laboratory Last Values WBC 6.3 K/mm3 (4.5-11.0) 02/20/21 05:40 RBC 4.63 M/mm3 (3.65-5.03) 02/20/21 05:40 Hgb 11.9 gm/dl (11.8-15.2) 02/20/21 05:40 Hct 38.8 % (35.5-45.6) 02/20/21 05:40 MCV 84 fl (84-94) 02/20/21 05:40 MCH 26 pg (28-32) L 02/20/21 05:40 MCHC 31 % (32-34) L 02/20/21 05:40 RDW 20.7 % (13.2-15.2) H 02/20/21 05:40 Plt Count 172 K/mm3 (140-440) 02/20/21 05:40 Lymph % (Auto) 10.7 % (13.4-35.0) L 02/20/21 05:40 [place] % (Auto) 9.0 % (0.0-7.3) H 02/20/21 05:40 Eos % (Auto) 0.0 % (0.0-4.3) 02/20/21 05:40 Baso % (Auto) 0.1 % (0.0-1.8) 02/20/21 05:40 Lymph # (Auto) 0.7 K/mm3 (1.2-5.4) L 02/20/21 05:40 [place] # (Auto) 0.6 K/mm3 (0.0-0.8) 02/20/21 05:40 Eos # (Auto) 0.0 K/mm3 (0.0-0.4) 02/20/21 05:40 Baso # (Auto) 0.0 K/mm3 (0.0-0.1) 02/20/21 05:40 Seg Neutrophils % 80.2 % (40.0-70.0) H 02/20/21 05:40 Seg Neutrophils # 5.0 K/mm3 (1.8-7.7) 02/20/21 05:40 PT 15.5 Sec. (12.2-14.9) H 02/19/21 04:26 INR 1.11 (0.87-1.13) 02/19/21 04:26 Sodium 135 mmol/L (137-145) L 02/20/21 05:40 Potassium 4.4 mmol/L (3.6-5.0) 02/20/21 05:40 Chloride 102.6 mmol/L (98-107) 02/20/21 05:40 Carbon Dioxide 20 mmol/L (22-30) L 02/20/21 05:40 Anion Gap 17 mmol/L 02/20/21 05:40 BUN 22 mg/dL (9-20) H 02/20/21 05:40 Creatinine 1.6 mg/dL (0.8-1.3) H 02/20/21 05:40 Estimated GFR 54 ml/min 02/20/21 05:40 BUN/Creatinine Ratio 14 % 02/20/21 05:40 Glucose 217 mg/dL (75-100) H 02/20/21 05:40 POC Glucose 93 mg/dL (70-105) 02/19/21 14:50 Calcium 8.8 mg/dL (8.4-10.2) 02/20/21 05:40 Phosphorus 2.40 mg/dL (2.5-4.5) L D 02/20/21 05:40 Magnesium 2.10 mg/dL (1.7-2.3) 02/20/21 05:40 Troponin T 0.028 ng/mL (0.00-0.029) 02/17/21 22:25 TSH 4.320 mlU/mL (0.270-4.200) H 02/17/21 22:25 Free T4 1.48 ng/dL (0.76-1.46) H 02/18/21 Unknown Solomon/IV: Voiding Method Urinal Active Medications - Current Medications Current Medications: Generic Name Dose Route Start Last Admin Trade Name Freq PRN Reason Stop Dose Admin Acetaminophen 650 mg 02/18/21 02:14 Acetaminophen 325 Mg Tab PO Q4H PRN Pain MILD(1-3)/Fever >100.5/NEFF Albuterol 2.5 mg 02/18/21 02:14 Albuterol 2.5 Mg/3 Ml Nebu IH Q4HRT PRN Shortness Of Breath Atorvastatin Calcium 40 mg 02/18/21 22:00 02/19/21 22:03 Atorvastatin 40 Mg Tab PO 40 mg QHS EDUARDO Administration Carvedilol 12.5 mg 02/18/21 10:00 02/19/21 22:02 Carvedilol 12.5 Mg Tab PO 12.5 mg BID EDUARDO Administration Dextrose 50 ml 02/18/21 02:14 Dextrose 50% In Water (25gm) 50 Ml Syringe IV Q30MIN PRN Hypoglycemia Protocol Famotidine 20 mg 02/18/21 10:00 02/19/21 22:04 Famotidine 20 Mg Tab PO 20 mg BID EDUARDO Administration Furosemide 40 mg 02/18/21 10:00 02/19/21 12:04 Furosemide 40 Mg Tab PO Not Given QDAY EDUARDO Gabapentin 300 mg 02/18/21 06:00 02/20/21 05:32 Gabapentin 300 Mg Cap PO 300 mg Q8HR EDUARDO Administration Guaifenesin 10 ml 02/18/21 02:19 Guaifenesin Dm 200/20 Mg Oral Liqd 10 Ml PO Q6H PRN Cough Heparin Sodium (Porcine) 5,000 unit 02/18/21 06:00 02/20/21 05:32 Heparin 5,000 Unit/1 Ml Vial SUB-Q 5,000 unit Q8HR EDUARDO Administration Hydralazine HCl 50 mg 02/18/21 06:00 02/20/21 05:00 Hydralazine 25 Mg Tab PO 50 mg Q8HR EDUARDO Administration Hydralazine HCl 10 mg 02/19/21 17:30 02/20/21 01:30 Hydralazine 20 Mg/1 Ml Inj IV 10 mg Q20M PRN Administration Hypertension Hydromorphone HCl 0.5 mg 02/18/21 02:14 02/18/21 03:45 Hydromorphone 1 Mg/1 Ml Inj IV 0.5 mg Q3H PRN Administration Pain , Severe (7-10) Lactated Ringer's 1,000 mls @ 42 mls/hr 02/19/21 16:00 02/20/21 02:33 Lactated Ringers IV 42 mls/hr DIRECT EDUARDO Administration Cefazolin Sodium 1 gm in 50 mls @ 100 mls/hr 02/19/21 23:30 02/20/21 04:18 Ancef/Ns 1 Gm/50 Ml IV 02/20/21 07:59 100 mls/hr Q8H EDUARDO Administration Sodium Phosphate 45 mmol/ 515 mls @ 84 mls/hr 02/20/21 07:21 Sodium Chloride IV 02/20/21 13:28 ONCE ONE Ibuprofen 800 mg 02/18/21 23:00 02/19/21 22:03 Ibuprofen 800 Mg Tab PO 800 mg Q12HR [facility] Administration Insulin Human Lispro 0 unit 02/18/21 07:30 02/19/21 22:00 Insulin Lispro 100 Unit/Ml SUB-Q Not Given [facility] Protocol Isosorbide Mononitrate 30 mg 02/18/21 10:00 02/19/21 11:29 Isosorbide Mononitrate Er 30 Mg Tab PO Not Given DAILY [facility] Lisinopril 20 mg 02/18/21 10:00 02/19/21 12:04 Lisinopril 20 Mg Tab PO Not Given QDAY [facility] Morphine Sulfate 2 mg 02/18/21 02:14 02/20/21 02:33 Morphine 2 Mg/1 Ml Inj IV 2 mg Q4H PRN Administration Pain, Moderate (4-6) Nicotine 14 mg 02/18/21 10:00 02/19/21 12:04 Nicotine 14 Mg/24 Hr Patch TD Not Given QDAY [facility] Nitroglycerin 0.4 mg 02/18/21 02:19 Nitroglycerin 0.4 Mg Tab Subl SL Q5M PRN Chest Pain Ondansetron HCl 4 mg 02/18/21 02:14 02/18/21 03:45 Ondansetron 4 Mg/2 Ml Inj IV 4 mg Q8H PRN Administration Nausea And Vomiting Oxycodone/Acetaminophen 2 tab 02/18/21 11:09 02/18/21 21:31 Oxycodone /Acetaminophen 5-325mg Tab PO 2 tab Q4H PRN Administration Pain, Moderate (4-6) Sodium Chloride 10 ml 02/18/21 10:00 02/20/21 03:55 Sodium Chloride 0.9% 10 Ml Flush Syringe IV 10 ml BID EDUARDO Administration Sodium Chloride 10 ml 02/18/21 02:14 Sodium Chloride 0.9% 10 Ml Flush Syringe IV PRN PRN LINE FLUSH Sodium Chloride 10 ml 02/19/21 17:00 Sodium Chloride 0.9% 10 Ml Flush Syringe IV PRN PRN flush Spironolactone 25 mg 02/18/21 10:00 02/19/21 11:28 Spironolactone 25 Mg Tab PO Not Given QDAY EDUARDO Nutrition/Malnutrition Assess - Dietary Evaluation Nutrition/Malnutrition Findings: Nutrition Notes Start: 02/18/21 11:23 Freq: Status: Active Protocol: Document 02/19/21 11:17 JENNIFER (Rec: 02/19/21 11:39 JENNIFER [id number]) Nutrition Notes Initial or Follow up Assessment Current Diagnosis Coronary Artery Disease, Diabetes,Hypertension,Heart Failure,Hyperlipidemia Other Pertinent Diagnosis R-Ankle Fracture, Syncope, Ischemic cardiomyopathy, Obesity. Current Diet NPO (since 02/19 00:01). Labs/Tests 02/19: Na 136, CO2 21, BUN 22, Crea 1.7, Glu 119, Free T4 1. 48. Pertinent Medications 02/19: Nutritionally unremarkable. Height 6 ft Weight 133.9 kg [place] Body Weight (kg) 80.90 BMI 40.0 Weight Status Morbidly Obese Subjective/Other Information RD consult for Skin Risk Assessment. No signs of concern for skin risk at the time. Percent of energy/protein needs met: Pt currently on NPO. Burn Absent Trauma Absent GI Symptoms None Food Allergy No Skin Integrity/Comment Clear, warm, dry. Current % PO Other Minimum of two criteria No #1 Nutrition Diagnosis No nutrition diagnosis at this time Comments: Pt shows no signs of concern for skin risk at the time, according to Progress Notes. Is patient on ventilator? No Is Patient Ambulatory and/or Out of Bed Yes REE-([place]. or-ambulatory/OOB) [ 2856.100 NUTR.[id number]] Kcal/Kg value to use for calculation 17 Approximate Energy Requirements Using 2276 kcal/Kg Calculation Used for Recommendations Kcal/kg Additional Notes Protein: 1.2-1.5 g/Kg; 97-122 g/day (from IBW+critical care) . Fluids: 1 ml/Kcal, or as per MD. Nutrition Intervention Change Diet Order: Continue NPO as per MD; when pertinent, resume PO to Cardiac/Consistent Carbohydrates Diet. Goal #1 Maintain body weight within +/ -3% of current BWt during LOS. Goal #2 Reach and maintain acceptable chemistry lab values during LOS. Follow-Up By: 02/27/21 Additional Comments Continue monitoring food tolerance, %PO intake of meals , Hydration, and BM.
[2021-02-20] MEDS ORDERED: SODIUM PHOSPHATE 45 MMOL in SODIUM CHLORIDE 0.9% 500 ML 500 ML IV ONE (08:30)
[2021-02-20] MEDS: INSULIN LISPRO 100 UNIT/ML SUB-Q SCH ×4 (08:54→22:14)
--- NOTE | 2021-02-20 08:56 | Post Anesthesia Evaluation ---
- Post Anesthesia Evaluation Patient Participated: Yes Airway Patent: Yes Stable Respiratory Function: Yes Nausea/Vomiting: No Temp > 96.8F: Yes Pain Manageable: Yes Adequeate Hydration: Yes Anesthesia Complications: No Block Receding Appropriately: Yes Patient on Ventilator: No
[2021-02-20] MEDS: IBUPROFEN 800 MG TAB PO SCH ×2 (09:19→22:11)
--- NOTE | 2021-02-20 10:41 | Progress Note ---
Assessment and Plan Echocardiogram 04/18/20: Mild concentric LVH, EF 25 to 30%, restrictive diastolic function Left heart catheterization 05/20: moderate nonobstructive CAD:, Right coronary dominant, patent distal stent in the RCA Syncope Right fibular fracture Ischemic cardiomyopathy Chronic HFrEF 25-30% CAD/PCI 2017 Diabetes Hypertension Hyperlipidemia Plan: LifeVest placed. Per documentation should be delivered today. Discussed with patient the importance of LifeVest. Patient agreeable to LifeVest Continue present management Patient has a follow-up appointment with Dr. Crenshaw, [facility] vaccine specialist, on 03/19/2021 at 10:15 AM at our [place] location. Phone #[phone] Patient has a follow-up appointment with Dr. Bearden, [facility] vaccine specialist, on 03/14/2021 at 2:30 PM at our [place] location. Phone #[phone] Patient seen in conjunction with Dr. Crenshaw who agrees with this plan of care. We will continue to follow - Patient Problems (1) Ankle fracture, right Current Visit: Yes Status: Acute Qualifiers: Encounter type: initial encounter Fracture type: closed Qualified Code(s): S82.891A - Other fracture of right lower leg, initial encounter for closed fracture (2) Syncope Current Visit: Yes Status: Acute Qualifiers: Syncope type: unspecified Qualified Code(s): R55 - Syncope and collapse (3) Hypertension Current Visit: Yes Status: Chronic Qualifiers: Hypertension type: primary hypertension Qualified Code(s): I10 - Essential (primary) hypertension (4) CAD (coronary artery disease) Current Visit: No Status: Chronic (5) Cardiomyopathy Current Visit: No Status: Chronic (6) Hyperlipidemia Current Visit: No Status: Chronic (7) Medical non-compliance Current Visit: No Status: Chronic Subjective Date of service: 02/20/21 Principal diagnosis: rt foot injury Interval history: Patient resting in bed in no acute distress. Patient has no cardiac complaints. Patient tolerated surgery well Sinus 67 on monitor Objective Vital Signs Temp Pulse Pulse Resp Resp BP Pulse Ox 02/20/21 07:40 97 02/20/21 05:25 97.9 F 76 18 133/59 92 02/20/21 05:00 90 02/20/21 02:55 96 02/20/21 00:00 93 02/19/21 22:11 98.1 F 86 18 183/101 93 02/19/21 22:02 84 02/19/21 21:19 96 02/19/21 18:13 98.1 F 77 18 163/92 96 02/19/21 18:00 98.1 F 79 16 163/92 98 02/19/21 17:52 97.7 F 65 15 158/93 98 02/19/21 17:41 72 166/105 02/19/21 17:35 97.7 F 68 15 166/87 98 02/19/21 17:30 69 16 175/104 96 02/19/21 17:16 73 15 164/100 99 02/19/21 17:10 67 13 153/99 99 02/19/21 17:05 85 16 161/91 97 02/19/21 16:59 97.7 F 72 16 157/97 97 02/19/21 15:02 64 16 162/76 96 02/19/21 14:57 63 15 161/88 96 02/19/21 14:52 69 18 164/99 100 02/19/21 14:47 63 15 154/84 97 02/19/21 14:42 69 16 151/84 97 02/19/21 14:37 72 16 164/86 97 02/19/21 14:33 79 17 169/104 97 02/19/21 14:26 72 14 144/101 97 02/19/21 14:10 98.1 F 67 18 133/88 99 02/19/21 13:55 98.1 F 67 18 133/88 99 02/19/21 13:29 71 20 02/19/21 12:42 98.8 F 66 18 158/88 92 02/19/21 12:00 96 - Physical Examination General: No Apparent Distress HEENT: Positive: PERRL, EOMI Neck: Positive: neck supple, trachea midline Cardiac: Positive: Reg Rate and Rhythm Lungs: Positive: Normal Breath Sounds Neuro: Positive: Grossly Intact Abdomen: Positive: Soft, Active Bowel Sounds Skin: Negative: Rash Extremities: Present: warm, Other (right foot in brace) - Labs and Meds CBC 02/20/21 Range/Units 05:40 WBC 6.3 (4.5-11.0) K/mm3 RBC 4.63 (3.65-5.03) M/mm3 Hgb 11.9 (11.8-15.2) gm/dl Hct 38.8 (35.5-45.6) % Plt Count 172 (140-440) K/mm3 Lymph # (Auto) 0.7 L (1.2-5.4) K/mm3 [place] # (Auto) 0.6 (0.0-0.8) K/mm3 Eos # (Auto) 0.0 (0.0-0.4) K/mm3 Baso # (Auto) 0.0 (0.0-0.1) K/mm3 Comprehensive Metabolic Panel 02/20/21 Range/Units 05:40 Sodium 135 L (137-145) mmol/L Potassium 4.4 (3.6-5.0) mmol/L Chloride 102.6 (98-107) mmol/L Carbon Dioxide 20 L (22-30) mmol/L BUN 22 H (9-20) mg/dL Creatinine 1.6 H (0.8-1.3) mg/dL Glucose 217 H (75-100) mg/dL Calcium 8.8 (8.4-10.2) mg/dL - Imaging and Cardiology Echo: report reviewed - Telemetry EKG Rhythm: Sinus Rhythm - EKG Sinus rhythms and dysrhythmias: sinus rhythm
[2021-02-20] MEDS: SPIRONOLACTONE 25 MG TAB PO SCH (12:39)
[2021-02-20] MEDS: carvediloL 12.5 MG TAB PO SCH ×2 (12:39→22:13)
[2021-02-20] MEDS: FAMOTIDINE 20 MG TAB PO SCH ×2 (12:39→22:12)
[2021-02-20] MEDS: LISINOPRIL 20 MG TAB PO SCH (12:39)
[2021-02-20] MEDS: NICOTINE 14 MG/24 HR PATCH TD SCH (12:40)
[2021-02-20] MEDS: FUROSEMIDE 40 MG TAB PO SCH (12:40)
[2021-02-21] MEDS: GABAPENTIN 300 MG CAP PO SCH (05:56)
[2021-02-21] MEDS: MORPHINE 2 MG/1 ML INJ IV PRN (05:56)
[2021-02-21] MEDS: hydrALAZINE 25 MG TAB PO SCH (05:56)
[2021-02-21] MEDS: HEPARIN 5,000 UNIT/1 ML VIAL SUB-Q SCH (06:06)
[2021-02-21] MEDS: INSULIN LISPRO 100 UNIT/ML SUB-Q SCH ×2 (07:54→12:11)
[2021-02-21] MEDS: oxyCODONE /ACETAMINOPHEN 5-325MG TAB PO PRN (07:59)
[2021-02-21] MEDS: FAMOTIDINE 20 MG TAB PO SCH (09:06)
[2021-02-21] MEDS: carvediloL 12.5 MG TAB PO SCH (09:07)
[2021-02-21] MEDS: FUROSEMIDE 40 MG TAB PO SCH (09:07)
[2021-02-21] MEDS: SPIRONOLACTONE 25 MG TAB PO SCH (09:07)
[2021-02-21] MEDS: IBUPROFEN 800 MG TAB PO SCH (09:07)
[2021-02-21] MEDS: LISINOPRIL 20 MG TAB PO SCH (09:08)
--- NOTE | 2021-02-21 11:12 | Progress Note ---
Assessment and Plan Echocardiogram 04/18/20: Mild concentric LVH, EF 25 to 30%, restrictive diastolic function Left heart catheterization 05/20: moderate nonobstructive CAD:, Right coronary dominant, patent distal stent in the RCA Syncope Right fibular fracture Ischemic cardiomyopathy Chronic HFrEF 25-30% CAD/PCI 2017 Diabetes Hypertension Hyperlipidemia Plan: LifeVest received by patient. Discussed with patient the importance of LifeVest. Continue present management Patient cardiac status is stable will sign off Patient has a follow-up appointment with Dr. Crenshaw, [facility] family intervention specialist, on 03/19/2021 at 10:15 AM at our [place] location. Phone #[phone] Patient has a follow-up appointment with Dr. Bearden, [facility] family intervention specialist, on 03/14/2021 at 2:30 PM at our [place] location. Phone #[phone] Patient seen in conjunction with Dr. Crenshaw who agrees with this plan of care. - Patient Problems (1) Ankle fracture, right Current Visit: Yes Status: Acute Qualifiers: Encounter type: initial encounter Fracture type: closed Qualified Code(s): S82.891A - Other fracture of right lower leg, initial encounter for closed fracture (2) Syncope Current Visit: Yes Status: Acute Qualifiers: Syncope type: unspecified Qualified Code(s): R55 - Syncope and collapse (3) Hypertension Current Visit: Yes Status: Chronic Qualifiers: Hypertension type: primary hypertension Qualified Code(s): I10 - Essential (primary) hypertension (4) CAD (coronary artery disease) Current Visit: No Status: Chronic (5) Cardiomyopathy Current Visit: No Status: Chronic (6) Hyperlipidemia Current Visit: No Status: Chronic (7) Medical non-compliance Current Visit: No Status: Chronic Subjective Date of service: 02/21/21 Principal diagnosis: rt foot injury Interval history: Patient resting in bed in no acute distress. Patient has no cardiac complaints. Patient Lifevest delivered Sinus 64 on monitor Objective Vital Signs Temp Pulse Resp BP Pulse Ox 02/21/21 09:08 162/101 02/21/21 09:07 71 162/101 02/21/21 09:05 71 162/101 02/21/21 05:56 62 02/21/21 05:43 97.8 F 61 20 137/79 92 02/20/21 23:10 17 96 02/20/21 22:20 98.0 F 56 L 20 150/88 96 02/20/21 22:13 90 02/20/21 22:12 90 02/20/21 12:39 74 147/83 02/20/21 12:37 98.2 F 74 16 147/83 96 02/20/21 12:00 94 - Physical Examination General: No Apparent Distress HEENT: Positive: PERRL, EOMI Neck: Positive: neck supple, trachea midline Cardiac: Positive: Reg Rate and Rhythm Lungs: Positive: Normal Breath Sounds Neuro: Positive: Grossly Intact Abdomen: Positive: Soft, Active Bowel Sounds Skin: Negative: Rash Extremities: Present: upper extr. pulses, warm, Other (right foot in brace) - Imaging and Cardiology Echo: report reviewed - Telemetry EKG Rhythm: Sinus Rhythm - EKG Sinus rhythms and dysrhythmias: sinus rhythm
--- NOTE | 2021-02-21 11:21 | Discharge Summary ---
Providers - Providers Date of Admission: 02/18/21 03:28 Date of discharge: 02/21/21 Attending physician: ROHINI COATS MD 02/17/21 22:20 Consult to Physician [CONS] Routine Comment: Dr. Allen spoke with Dr. Jasso @ [id number] Consulting Provider: JAILENE JASSO Physician Instructions: Reason For Exam: ankle fracture 02/18/21 02:14 Consult to Physician [CONS] Routine Comment: Consulting Provider: CISCO CAROLINA Physician Instructions: Reason For Exam: Cardiac clearance 02/18/21 02:15 Consult to Dietitian/Nutrition [CONS] Routine Physician Instructions: Reason For Exam: Reason for Consult: Diet education 02/19/21 10:12 Physical Therapy Evaluation and Treat [CONS] Routine Comment: Reason For Exam: S/p surgical repair of R ankle 02/19/21 16:58 Consult to Case Management [CONS] Routine Services Needed at Discharge: Other Notified:: CM Additional Physician Instructions: Assess Discharge needs. Physical Therapy Evaluation and Treat [CONS] Routine Comment: Reason For Exam: Eval and Treat 02/20/21 09:55 Physical Therapy Evaluation and Treat [CONS] Urgent Comment: Reason For Exam: post-op Mode of Transport?: Walker Weight bearing status?: Partial wt bearing Assistive devices?: Yes If so list: Crutches Primary care physician: UTILITY REPAIRER Hospitalization Condition: Fair Disposition: 30 STILL A PATIENT Exam - Constitutional Vitals: Temp Pulse Resp BP Pulse Ox 97.8 F 71 20 162/101 92 02/21/21 05:43 02/21/21 09:07 02/21/21 05:43 02/21/21 09:08 02/21/21 05:43 Plan Care Plan Goals: Please follow-up with your primary care doctor within 1 week. Follow-up with Dr. Jasso in 2 weeks. You must wear your LifeVest as explained to you by cardiology. You have a follow-up appointment with Dr. Carolina at [facility] on 03/19/2021 at 10:15 AM at the [place] location. You have a follow-up appointment with Dr. Bearden on 03/14/2021 at 2:30 PM at the [place] location. You can contact them via phone at [phone]. Assessment: Patient admitted after syncope in same level fall resulting in a right ankle fracture. Echocardiogram showed ejection fraction of 15 to 20%. Cardiology was consulted and LifeVest was ordered prior to discharge. Patient underwent repair fracture on 02/19. He was evaluated by physical therapy and discharged home with home health/physical therapy. Patient instructed to follow-up with cardiology at set appointments and was counseled about the importance of LifeVest compliance. Follow up with: JAILENE JASSO MD [Staff Physician] - 14 Days PRIMARY CARE, [Primary Care Provider] - 3-5 Days Prescriptions: AtorvaSTATin [Lipitor] 40 mg PO QHS 30 Days #30 tablet oxyCODONE /ACETAMINOPHEN [Percocet 5/325 mg] 2 tab PO Q4H PRN 3 Days #36 tablet PRN Reason: Pain, Moderate (4-6)
[2021-02-21 11:56] LABS: BUN/Creatinine Ratio 14; Blood Urea Nitrogen 20 mg/dL (9-20); Calcium 8.5 mg/dL (8.4-10.2); Hemolysis Index 2
[2021-02-21] MEDS: NICOTINE 14 MG/24 HR PATCH TD SCH (12:11)
[2021-02-21 12:15] VITALS: BP 147/70
== END 2021-02-21 12:40 | disposition home or self-care (01) | DRG 492 ==
LOC: ED 21:02 → 3A 02-18 03:28
PROVIDERS: ADMIT Hospitalist; ATTEND Student in an Organized Health Care Education/Training Program
PROC: 0QSJ04Z Reposition Right Fibula with Internal Fixation Device, Open Approach (ICD-10-PCS; principal; 2021-02-19)
PROC: 0SSF04Z Reposition Right Ankle Joint with Internal Fixation Device, Open Approach (ICD-10-PCS; 2021-02-19)
DX: S82.61XA Displaced fracture of lateral malleolus of right fibula, initial encounter for closed fracture (principal); I50.23 Acute on chronic systolic (congestive) heart failure; I25.10 Atherosclerotic heart disease of native coronary artery without angina pectoris; R55 Syncope and collapse; I25.5 Ischemic cardiomyopathy; I11.0 Hypertensive heart disease with heart failure; E11.9 Type 2 diabetes mellitus without complications; Z87.891 Personal history of nicotine dependence; E78.5 Hyperlipidemia, unspecified; Z91.14 Patient's other noncompliance with medication regimen; W18.39XA Other fall on same level, initial encounter; Y93.89 Activity, other specified; Y92.89 Other specified places as the place of occurrence of the external cause; Y99.8 Other external cause status; Z20.822 Contact with and (suspected) exposure to COVID-19
CPT/HCPCS: 36415; 64450; 80048; 82962; 83735; 84100; 84439; 84443; 84484; 85025; 85610; 93005; 93306; 94640; 94760; G0378; J3490; J7120; Q9967; C1713; J0360; J0690; J1100; J1170; J1644; J1815; J1885; J2250; J2270; J2405; J2704; J3010; J7040

== ENCOUNTER 2021-02-25 13:42 | Emergency (ER) | payer BC ==
[2021-02-25 13:49] VITALS: BP 179/92
[2021-02-25] MEDS ORDERED: oxyCODONE /ACETAMINOPHEN 5-325MG TAB PO ONE (14:27)
--- NOTE | 2021-02-25 14:52 | Emergency Department Report ---
ED Extremity Problem HPI - General Chief complaint: Extremity Problem,Nontraumatic Stated complaint: RIGHT EXTREMITY PAIN Time Seen by Provider: 02/25/21 14:17 Source: patient Mode of arrival: Ambulatory Limitations: No Limitations - History of Present Illness Initial comments: 60-year-old male presents to the hospital complaining of needing a dressing change right ankle and pain medication. Patient had ORIF of right ankle here 02/19 after sustaining a fracture after a fall. Patient is expecting wound care to come to the home tomorrow however, he has had a substantial leaking of fluid through bandages and felt that he needed dressing change sooner. He also does not currently have any pain medication because the pharmacy refused to fill the Percocet 5/325 #36 tabs that were prescribed upon his discharge on February 21. Pain is moderate to severe, worse with ambulation and movement, somewhat alleviated by rest and elevation. patient was prescribed a LifeVest upon recent discharge. He is not currently wearing his LifeVest and states he typically does not wear it when he sleeps because the beeping noises keeps him awake. Patient does have a walker to assist with ambulation - Related Data Home Medications Medication Instructions Recorded Confirmed Last Taken Metformin HCl [Glucophage] 1,000 mg PO BID 04/04/16 02/18/21 02/17/21 Gabapentin 300 mg PO Q8HR 03/27/18 02/18/21 02/17/21 ISOSORBIDE MONOnitrate [Imdur ER] 30 mg PO DAILY 01/20/20 02/18/21 02/17/21 Previous Rx's Medication Instructions Recorded Last Taken Type Aspirin EC [Halfprin EC] 81 mg PO QDAY #90 tablet. 05/08/19 02/17/21 Rx Nicotine [Habitrol] 14 mg TD QDAY #30 patch 05/08/19 02/24/20 Rx Nitroglycerin [Nitrostat] 0.4 mg SL Q5M PRN #30 tab 05/08/19 02/24/20 Rx Spironolactone [Aldactone] 25 mg PO QDAY #30 tablet 05/08/19 02/17/21 Rx carvediloL [Coreg] 12.5 mg PO BID #60 tablet 05/08/19 02/17/21 Rx hydrALAZINE [Apresoline TAB] 50 mg PO Q8HR 30 Days #180 tablet 05/08/19 02/17/21 Rx Furosemide [Lasix TAB] 40 mg PO QDAY #30 tablet 01/20/20 02/24/20 Rx lisinopriL [Zestril TAB] 20 mg PO QDAY tablet 01/20/20 02/24/20 Rx Albuterol Mdi (or & Nicu Only) 2 puff IH QID PRN #8.5 gram 10/29/20 02/24/20 Rx [ProAir HFA Inhaler] HYDROcodone/APAP 5-325 [Fence 1 - 2 each PO Q6HR PRN #10 tablet 10/29/20 02/17/21 Rx 5-325 mg TAB] guaiFENesin DM [Guaifenesin Dm 10 ml PO Q6H PRN #300 ml 10/29/20 02/24/20 Rx Syrup] AtorvaSTATin [Lipitor] 40 mg PO QHS 30 Days #30 tablet 02/21/21 Unknown Rx HYDROcodone/APAP 5-325 [Fence 1 each PO Q6HR PRN #20 tablet 02/21/21 Unknown Rx 5/325] oxyCODONE /ACETAMINOPHEN [Percocet 2 tab PO Q4H PRN 3 Days #36 tablet 02/21/21 Unknown Rx 5/325 mg] oxyCODONE /ACETAMINOPHEN [Percocet 1 - 2 tab PO Q6HR PRN #20 tablet 02/25/21 Unknown Rx 5/325] Allergies Allergy/AdvReac Type Severity Reaction Status Date / Time No Known Allergies Allergy Verified 02/17/21 21:14 ED Review of Systems ROS: Stated complaint: RIGHT EXTREMITY PAIN Other details as noted in HPI Comment: All other systems reviewed and negative ED Past Medical Hx - Past Medical History Hx Hypertension: Yes Hx Heart Attack/AMI: No Hx Congestive Heart Failure: Yes Hx Diabetes: Yes Hx Liver Disease: No Hx Renal Disease: No Hx Sickle Cell Disease: No Hx Seizures: No Hx Asthma: No Hx COPD: No Hx HIV: No - Surgical History Hx Coronary Stent: Yes Hx Pacemaker: No Hx Internal Defibrillator: No Additional Surgical History: Stent 04/05/16 - Social History Smoking Status: Current Every Day Smoker - Medications Home Medications: Home Medications Medication Instructions Recorded Confirmed Last Taken Type Metformin HCl [Glucophage] 1,000 mg PO BID 04/04/16 02/18/21 02/17/21 History Gabapentin 300 mg PO Q8HR 03/27/18 02/18/21 02/17/21 History Aspirin EC [Halfprin EC] 81 mg PO QDAY #90 tablet. 05/08/19 02/18/21 02/17/21 Rx Nicotine [Habitrol] 14 mg TD QDAY #30 patch 05/08/19 02/18/21 02/24/20 Rx Nitroglycerin [Nitrostat] 0.4 mg SL Q5M PRN #30 tab 05/08/19 02/18/21 02/24/20 Rx Spironolactone [Aldactone] 25 mg PO QDAY #30 tablet 05/08/19 02/18/21 02/17/21 Rx carvediloL [Coreg] 12.5 mg PO BID #60 tablet 05/08/19 02/18/21 02/17/21 Rx hydrALAZINE [Apresoline TAB] 50 mg PO Q8HR 30 Days #180 tablet 05/08/19 02/18/21 02/17/21 Rx Furosemide [Lasix TAB] 40 mg PO QDAY #30 tablet 01/20/20 02/18/21 02/24/20 Rx ISOSORBIDE MONOnitrate [Imdur ER] 30 mg PO DAILY 01/20/20 02/18/21 02/17/21 History lisinopriL [Zestril TAB] 20 mg PO QDAY tablet 01/20/20 02/18/21 02/24/20 Rx Albuterol Mdi (or & Nicu Only) 2 puff IH QID PRN #8.5 gram 10/29/20 02/18/21 02/24/20 Rx [ProAir HFA Inhaler] HYDROcodone/APAP 5-325 [Fence 1 - 2 each PO Q6HR PRN #10 tablet 10/29/20 02/18/21 02/17/21 Rx 5-325 mg TAB] guaiFENesin DM [Guaifenesin Dm 10 ml PO Q6H PRN #300 ml 10/29/20 02/18/21 02/24/20 Rx Syrup] AtorvaSTATin [Lipitor] 40 mg PO QHS 30 Days #30 tablet 02/21/21 Unknown Rx HYDROcodone/APAP 5-325 [Fence 1 each PO Q6HR PRN #20 tablet 02/21/21 Unknown Rx 5/325] oxyCODONE /ACETAMINOPHEN [Percocet 2 tab PO Q4H PRN 3 Days #36 tablet 02/21/21 Unknown Rx 5/325 mg] oxyCODONE /ACETAMINOPHEN [Percocet 1 - 2 tab PO Q6HR PRN #20 tablet 02/25/21 Unknown Rx 5/325] ED Physical Exam - General Limitations: No Limitations - Other Other exam information: General: No acute distress Head: Atraumatic Eyes: normal appearance ENT: Moist mucous membranes Neck: Normal appearance, no midline tenderness Chest: Clear to auscultation bilaterally CV: Regular rate and rhythm Abdomen: Soft, normal bowel sounds, nontender, nondistended, no rebound or guarding Back: Normal inspection Extremity: Right ankle gauze soaked with serosanguineous fluid. Upon removal of gauze there is no active bleeding. Steri-Strips in place at right surgical wound. Generalized foot swelling with ankle tenderness. 2+ DP pulse. No warmth or erythema. Patient able to wiggle toes. Neuro: Alert O x 3, no facial asymmetry, speech clear, no gross motor sensory deficit Psych: Appropriate behavior Skin: No rash ED Course Vital Signs 02/25/21 02/25/21 13:49 16:26 Temperature 98 F Pulse Rate 74 Respiratory 16 Rate Blood Pressure 179/92 [Right] O2 Sat by Pulse 98 98 Oximetry - Consultations Consultation #1: 02/25/21 Case management evaluation was requested to ensure that patient's home health arrangements have been arranged ED Medical Decision Making - Medical Decision Making 60-year-old male with a complaint of needing dressing change to right ankle. Dressing was removed. No signs of active infection or drainage. Dressing change performed by RN. Patient received Percocet for pain. Case management consulted. Patient will be discharged with another prescription of Percocet however, a smaller amount so that pharmacy may be more likely to fill it. Outpatient follow-up encouraged. Case management verify patient's arrangement for outpatient support Critical Care Time: No Critical care attestation.: If time is entered above; I have spent that time in minutes in the direct care of this critically ill patient, excluding procedure time. ED Disposition Clinical Impression: Encounter for postprocedural change of dressing, Status post ORIF of fracture of ankle Disposition: 01 HOME / SELF CARE / HOMELESS Is pt being admited?: No Does the pt Need Aspirin: No Condition: Stable Instructions: How to Change Your Wound Dressing, [id number] Additional Instructions: Take the medication as prescribed. Follow-up with your doctor or doctor/clinic provided. Return if symptoms worsen as indicated by your discharge instructions. Prescriptions: oxyCODONE /ACETAMINOPHEN [Percocet 5/325] 1 - 2 tab PO Q6HR PRN #20 tablet PRN Reason: Pain Referrals: JAILENE JASSO MD [Staff Physician] - 3-5 Days Time of Disposition: 16:33
== END 2021-02-25 16:50 | disposition home or self-care (01) ==
LOC: ED 13:42
DX: S82.891G Other fracture of right lower leg, subsequent encounter for closed fracture with delayed healing (principal); I11.0 Hypertensive heart disease with heart failure; I50.9 Heart failure, unspecified; F17.200 Nicotine dependence, unspecified, uncomplicated; X58.XXXD Exposure to other specified factors, subsequent encounter
CPT/HCPCS: 99282

== ENCOUNTER 2021-03-08 09:27 | Outpatient (CLI) | payer BC ==
--- NOTE | 2021-03-08 12:02 | XRay Report ---
RIGHT ANKLE 3 VIEW(S) INDICATION / CLINICAL INFORMATION: RIGHT ANKLE PAIN COMPARISON: 02/17/2021 FINDINGS: BONES / JOINT(S): Ossific densities are noted distal to the medial malleolus, likely sequela of prior medial malleolus fracture No significant arthritis. Patient is status post plate and screw fixation of the distal fibula with a screw traversing the distal tibiofibular syndesmosis. No hardware complic ation. SOFT TISSUES: No significant abnormality. ADDITIONAL FINDINGS: None. Signer Name: Laci Eric DO Signed: 03/08/2021 11:58 AM Workstation Name: [id number]
== END 2021-03-08 09:28 | disposition home or self-care (01) ==
LOC: XRAY 09:27
PROVIDERS: ATTEND Orthopaedic Surgery
DX: S82.90XA Unspecified fracture of unspecified lower leg, initial encounter for closed fracture (principal); X58.XXXA Exposure to other specified factors, initial encounter; Y93.89 Activity, other specified; Y92.89 Other specified places as the place of occurrence of the external cause; Y99.8 Other external cause status